=== PATIENT | female | born 2000 | race Caucasian/White ===

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

== ENCOUNTER 2019-05-25 20:29 | Emergency (ER) | payer BC, SELFPAY ==
[2019-05-25 20:30] VITALS: BP 163/82; PULSE 115; RESP 18; TEMP 36.8; O2SAT 94; BMI 52.7
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
--- NOTE | 2019-05-25 21:12 | RAD_ITS ---
STUDY: X-RAY CHEST REASON FOR EXAM: Female, 19 years old. PT STATES SINCE SHE VAPED SHE FEELS SOB TECHNIQUE: Frontal view COMPARISON: March 25, 2017 FINDINGS: The lungs are expanded. Mild focal right basilar interstitial prominence. Normal size heart. Normal mediastinum and angelique. Normal visualized pulmonary arteries. Normal visualized aortic arch and descending thoracic aorta. Normal visualized thoracic spine. Normal visualized ribs, clavicles, and shoulders. There is no demonstrated abnormality of the visualized soft tissue structures of the upper abdomen. RAD/Chest 1 View (Portable) IMPRESSION: Mild focal right basilar interstitial prominence. Electronically Signed: Morro Sinha DO at 22:06 EDT Tel [phone], Service support ,
[2019-05-25 21:20] VITALS: O2SAT 96
[2019-05-25] MEDS: Doxycycline 100 MG CAPSULE PO (23:10)
== END 2019-05-25 23:15 | disposition home or self-care (01) ==
PROVIDERS: Emergency Provider Emergency Medicine
DX: J40 Bronchitis, not specified as acute or chronic (principal); J02.9 Acute pharyngitis, unspecified
CPT/HCPCS: 71045; 99283

== ENCOUNTER 2019-08-18 16:07 | Emergency (ER) | payer BC, SELFPAY ==
[2019-08-18 16:08] VITALS: BP 142/73; PULSE 100; RESP 16; TEMP 36.2; BMI 56.0
--- NOTE | 2019-08-18 16:30 | ED.VIS.GEN ---
History of Present Illness Informant: Patient Onset: Weeks - 1 week Context: Gradual Onset Timing: Continuous Quality: burnining Location: urination Current Severity: Moderate Maximum Severity: Moderate Worsened by: nothing Relieved by: nothing Associated Symptoms: urinary frequency and urgency Narrative: 19-year-old female presents with dysuria with urinary frequency and urgency. Had a UTI last month and feels like she has another 1 today. She has no abdominal pain fevers vomiting or diarrhea her last normal menstrual period was about 2 weeks ago. She is not having any current vaginal bleeding or discharge. No back pain. Rest review of systems are negative Prior similar symptoms: Yes Recent Illness/Hospitalization: No <Paul Bartholomew - Last Filed: 08/18/19 17:35> <Rosemary Sullivan - Last Filed: 08/18/19 23:16> Chief Complaint: Complaint Past Medical History Prior records reviewed: Yes Past Medical History: None Surgical History: no surgical history Lives: With Family Smoking Status: Current every day smoker Alcohol: None Drugs: None <Paul Bartholomew - Last Filed: 08/18/19 17:35> <Rosemary Sullivan - Last Filed: 08/18/19 23:16> - Allergies and Home Meds Allergies/Adverse Reactions: Allergies prednisone Allergy (Verified 05/25/19 20:32) Unknown Primary Care Physician: David Covarrubias MD [STAFF PHYSICIAN] - Review of Systems All systems negative except as indicated General: Denies: Chills, Fever, Sweats Eyes: Denies: Visual changes - bilaterally, Diplopia ENT: Denies: Rhinorrhea, Sore throat Cardiovascular: Denies: Chest pain, Palpitations Respiratory: Denies: Dyspnea, Cough, Dyspnea on exertion Gastrointestinal: Denies: Abdominal pain, Nausea, Vomiting, Diarrhea, Melena, Hematochezia Genitourinary: Reports: Dysuria, Frequency. Denies: Hematuria Musculoskeletal: Denies: Back pain, Extremity Pain Skin: Denies: Rash, Wounds Neurological: Denies: Headache, Weakness, Numbness <Paul Bartholomew - Last Filed: 08/18/19 17:35> Physical Exam Vital Signs/Narrative: Vital Signs Temp Pulse Resp BP 08/18/19 16:08 97.2 F L 100 16 142/73 H Inital Vital Signs reviewed: Yes General: Well nourished, Well developed, No Acute Distress Head: Normocephalic, Atraumatic Eyes: Perrl, EOMI ENT: Moist mucous membranes, No rhinorrhea Neck: Supple, Nontender Cardiovascular: Regular rate, Regular rhythm, No murmurs Respiratory: No distress, CTA bilaterally, Chest nontender Abdomen: Soft, Nontender, Nondistended, Normal bowel sounds Back: Nontender, Normal Inspection. Negative for: CVA tenderness Extremities: Nontender, No edema Skin: Normal color, No rash Neurological: Alert, Oriented x3, Cranial nerves II-XII grossly intact, Normal Strength, Normal Sensation Psychological: Normal affect, Normal Mood <Paul Bartholomew - Last Filed: 08/18/19 17:35> Diagnostic/Tx/Re-eval Laboratory Tests 08/18/19 08/18/19 Range/Units 16:20 16:20 Urine Color Yellow (Yellow) Urine Clarity Clear (Clear) Urine pH 6.5 (5.0 - 8.0) Ur Specific [place] 1.010 (1.002-1.030) Urine Protein Negative (Negative) mg/dl Urine Glucose (UA) Normal (Normal) mg/dl Urine Ketones Negative (Negative) mg/dl Urine Occult Blood Negative (Negative) /ul Urine Nitrite Negative (Negative) Urine Bilirubin Negative (Negative) mg/dL Urine Urobilinogen Normal (Normal) mg/dl Ur Leukocyte Esterase Negative (Negative) /ul Urine RBC 0 SEEN (0-5) /hpf Urine WBC 0 SEEN (0-5) /hpf Ur Squamous Epith Cells 0-5 SEEN (5-10) /hpf Urine Bacteria 1+ (None Seen) /hpf Urine Mucus 0 SEEN (<or=2+) /hpf Urine Test Negative Negative - Medical Decision Making Patient's was negative as was her urinalysis. Patient will be placed on Pyridium. She was encouraged to follow-up with her PCP. She will continue oral hydration. Her abdomen is soft nontender nondistended vital signs are unremarkable and she is able to tolerate by mouth <Paul Bartholomew - Last Filed: 08/18/19 17:35> - Medical Decision Making I have personally performed a [id number] assessment of the patient and have reviewed the PA note. My angelo findings include: 19-year-old female presenting with dysuria. Feels similar to previous UTI. Denies vaginal discharge. Urinalysis and urine are negative. She is given prescription for Pyridium. Advised to follow up with her primary care physician. Advised return to ED if worsening complaints. <Rosemary Sullivan - Last Filed: 08/18/19 23:16> ED Disposition <Paul Bartholomew - Last Filed: 08/18/19 17:35> <Rosemary Sullivan - Last Filed: 08/18/19 23:16> - Plan for ED Patient: Disposition: Home or Assisted Living Diagnosis: Dysuria, Recent urinary tract infection Instructions: ED Dysuria Uncertain Cause Prescriptions: Phenazopyridine HCl [Pyridium] 200 mg PO TID #6 tab Prescription Printed Referrals: David Covarrubias MD [STAFF PHYSICIAN] -
[2019-08-18 16:33] LABS: Mucous, Urine 0 SEEN /hpf (<or=2+); Red Blood Cells-Urine 0 SEEN /hpf (0-5); White Blood Cells 0 SEEN /hpf (0-5)
[2019-08-18 16:49] LABS: Color, Urine Yellow (Yellow); Glucose, Dipstick Normal (Normal); Ketone-Dipstick Negative (Negative); Leukocyte Esterase-Dipstick Negative /ul (Negative); Nitrite-Dipstick Negative (Negative); Occult Blood-Urine Negative /ul (Negative); Protein-Dipstick Negative (Negative); Urine Bilirubin Dipstick Negative (Negative); Urine Clarity Clear (Clear); Urine Urobilinogen Normal (Normal); Urine pH 6.5 (5.0 - 8.0)
[2019-08-18 16:53] LABS: Internal QC Validated? YES +Cl - CLEAR BKGD; Pregnancy, Urine Negative Negative
[2019-08-18 17:02] LABS: Bacteria 1+ /hpf (None Seen); Squamous Epithelial Cells - UA 0-5 SEEN /hpf (5-10)
== END 2019-08-18 18:01 | disposition home or self-care (01) ==
PROVIDERS: Emergency Provider Physician Assistant Medical
DX: R30.0 Dysuria (principal); N39.0 Urinary tract infection, site not specified; F17.200 Nicotine dependence, unspecified, uncomplicated
CPT/HCPCS: 81001; 81025; 99282

== ENCOUNTER → 2019-08-28 | Outpatient (CLI) | payer BC, SELFPAY ==
[2019-08-28 13:14] VITALS: BMI 56.0
[2019-08-28 15:49] LABS: Bacteria 0 SEEN /hpf (None Seen); Mucous, Urine 0 SEEN /hpf (<or=2+); Red Blood Cells-Urine 0 SEEN /hpf (0-5); White Blood Cells 0 SEEN /hpf (0-5)
[2019-08-28 15:53] LABS: Glucose, Dipstick Normal (Normal); Ketone-Dipstick Negative (Negative); Leukocyte Esterase-Dipstick Negative /ul (Negative); Nitrite-Dipstick Negative (Negative); Occult Blood-Urine Negative /ul (Negative); Protein-Dipstick Negative (Negative); Urine Bilirubin Dipstick Negative (Negative); Urine Urobilinogen Normal (Normal)
[2019-08-28 16:01] LABS: Color, Urine Yellow (Yellow); Urine Clarity Clear (Clear)
[2019-08-28 16:22] LABS: Amorphous Sediment 1+ URATE; Squamous Epithelial Cells - UA 5-10 SEEN /hpf (5-10)
== END | disposition home or self-care (01) ==
PROVIDERS: Referring Provider Physician Assistant Surgical; Visit Provider Physician Assistant Surgical
DX: R35.0 Frequency of micturition (principal)
CPT/HCPCS: 81001; 87086; 87088

== ENCOUNTER 2020-03-10 10:48 | Emergency (ER) | payer BC, SELFPAY ==
[2019-08-28 13:14] VITALS: BMI 56.0
[2020-03-10 10:49] VITALS: BP 127/87; PULSE 104; RESP 20; TEMP 36.3; O2SAT 96; BMI 55.7
--- NOTE | 2020-03-10 11:04 | ED.DCSUM_ITS ---
History of Present Illness Informant: Patient Onset: Days - 3 days Context: Gradual Onset Timing: Continuous Quality: sore Location: throat Current Severity: Moderate Maximum Severity: Moderate Worsened by: Swallowing, Eating Solids Relieved by: Tylenol, NSAIDs Associated Symptoms: Nasal Congestion, Headache, Sinus Pressure, Nonproductive cough. Negative for: Myalgias, Nausea, Vomiting, Diarrhea, Shortness of Breath, Chest Pain, Hemoptysis, Productive Cough Narrative: 20-year-old female past medical history of bronchitis and daily smoking presents to the emergency department with 3 days of sore throat nonproductive cough nasal congestion sinus pain and pressure headache and malaise. No fever. No chest pain. No hemoptysis. No shortness of breath. No leg pain or swelling. No recent travel or surgery. No history of DVT or PE. No vomiting or diarrhea. N o loss of taste or smell. She denies being in contact of anyone who is been diagnosed with COVID-19. She has not had a positive test during the pandemic. Not taken anything at home [id number] Prior similar symptoms: Yes Recent Illness/Hospitalization: No <Paul Bartholomew - Last Filed: 03/10/20 11:04> <Cruzito Guzman - Last Filed: 03/10/20 13:14> Chief Complaint: Cough Past Medical History Prior records reviewed: Yes Past Medical History: - - Bronchitis allergies daily smoking Surgical History: no surgical history Lives: With Family Smoking Status: Current every day smoker Alcohol: None Drugs: None <Paul Bartholomew - Last Filed: 03/10/20 11:04> <Cruzito Guzman - Last Filed: 03/10/20 13:14> - Allergies and Home Meds Allergies/Adverse Reactions: Allergies prednisone Allergy (Verified 08/28/19 13:11) Unknown Primary Care Physician: David Covarrubias MD [STAFF PHYSICIAN] - As soon as possible Review of Systems All systems negative except as indicated General: Reports: Malaise. Denies: Chills, Fever, Sweats Eyes: Denies: Visual changes - bilaterally, Diplopia ENT: Reports: Rhinorrhea, Sore throat Cardiovascular: Denies: Chest pain, Palpitations, Heart racing Respiratory: Reports: Cough. Denies: Dyspnea, Sputum, Dyspnea on exertion, Orthopnea, Paroxysmal nocturnal dyspnea Gastrointestinal: Denies: Abdominal pain, Nausea, Vomiting, Diarrhea, Constipation, Melena, Hematochezia Genitourinary: Denies: Dysuria, Hematuria, Frequency Musculoskeletal: Denies: Myalgias, Arthralgias, Neck pain, Back pain, Extremity Pain Skin: Denies: Rash, Abscess, Abrasions, Wounds Neurological: Denies: Headache, Weakness, Parasthesia, Numbness Allergy: Denies: Uticaria, Swelling of the mouth, Swelling of the tongue <Paul Bartholomew - Last Filed: 03/10/20 11:04> Physical Exam Vital Signs/Narrative: Vital Signs Temp Pulse Resp BP Pulse Ox 03/10/20 10:49 97.3 F L 104 H 20 H 127/87 H 96 Inital Vital Signs reviewed: Yes General: Well nourished, Well developed Head: Normocephalic, Atraumatic. Negative for: Right Tenderness, Left Tenderness, Frontal Tenderness, Maxillary Tenderness, Sinus Tenderness Eyes: Perrl, EOMI Ears: Normal external canal, TM's clear. Negative for: Pain with Movement of Right Tragus, Pain with Movement of Left Tragus, Right Mastoid Tenderness, Left Mastoid Tenderness Nose: Normal Inspection, No Rhinorrhea Mouth/Throat: Normal Inspection, Airway Patent, Posterior Oropharyngeal Erythema. Negative for: Dry Mucous Membranes Tonsils: Right Tonsilar Erythema, Left Tonsilar Erythema. Negative for: Right Tonsilar Exudates, Left Tonsilar Exudates, Right Tonsilar Swelling, Left Tons ilar Swelling Neck: Supple, Nontender, No Lymphadenopathy, No Meningismus Cardiovascular: Regular rate, Regular rhythm, No murmurs Respiratory: No distress, CTA bilaterally, Chest nontender Abdomen: Soft, Nontender, Nondistended, Normal bowel sounds Back: Nontender, Normal Inspection Extremities: Nontender, No edema. Negative for: Tenderness, Edema, Calf Tenderness Skin: Normal color, No rash Neurological: Alert, Oriented x3, Cranial nerves II-XII grossly intact, Normal Strength, Normal Sensation Psychological: Normal affect <Paul Bartholomew - Last Filed: 03/10/20 11:04> Vital Signs/Narrative: Vital Signs Temp Pulse Resp BP Pulse Ox 03/10/20 10:49 97.3 F L 104 H 20 H 127/87 H 96 <Cruzito Guzman - Last Filed: 03/10/20 13:14> Diagnostic/Tx/Re-eval - Medical Decision Making Patient has normal stable vital signs. Patient well-appearing. Patient afebrile with a normal pulse ox. She refuses a COVID-19 test. I will prescribe her an albuterol inhaler and an antihistamine as she requested a prescription for an allergy medication. Discussed with her antibiotics were not indicated. I do not feel acute work-up is indicated in the emergency department. I discussed this with her and she is agreeable with this plan. I advised her to follow close with her primary care physician or she develops worsening symptoms which we discussed in detail she should return to the emergency department for repeat evaluation <Paul Bartholomew - Last Filed: 03/10/20 11:04> - Medical Decision Making Agree with above assessment and plan. Will discharge home in stable condition. She is to follow-up with her PCP. <Cruzito Guzman - Last Filed: 03/10/20 13:14> ED Disposition <Paul Bartholomew - Last Filed: 03/10/20 11:04> <Cruzito Guzman - Last Filed: 03/10/20 13:14> - Plan for ED Patient: Disposition: Home or Assisted Living Diagnosis: Viral URI with cough, Seasonal allergic rhinitis Instructions: ED Seasonal Allergy, ED URI, Viral, No Abx (Adult) Prescriptions: Cetirizine HCl 10 mg PO DAILY #30 tab Transmission Status: Received by [id number] Albuterol Inhaler [Ventolin Hfa] 1 - 2 puff INHALATION Q4H PRN PRN #1 inhaler PRN Reason: Wheezing Transmission Status: Received by [id number] Referrals: David Covarrubias MD [STAFF PHYSICIAN] - As soon as possible
[2020-03-10 11:23] VITALS: O2SAT 98
== END 2020-03-10 11:25 | disposition home or self-care (01) ==
LOC: ED 11:20
PROVIDERS: Emergency Provider Physician Assistant Medical
DX: J06.9 Acute upper respiratory infection, unspecified (principal); R05 Cough; J30.2 Other seasonal allergic rhinitis; F17.200 Nicotine dependence, unspecified, uncomplicated; Z88.8 Allergy status to other drugs, medicaments and biological substances
CPT/HCPCS: 99282

== ENCOUNTER → 2020-07-11 13:57 | Outpatient (CLI) | payer BC, SELFPAY ==
[2020-07-16 03:06] LABS: Chlamydia By Nucleic Acid AMP Negative (Negative)
[2020-07-16 10:58] LABS: Gonococcus By Nucleic Acid AMP Negative (Negative)
[2020-07-16 13:19] LABS: HPV Reflexed? NOT INDICATED
== END ==
PROVIDERS: Visit Provider Student in an Organized Health Care Education/Training Program
DX: Z12.4 Encounter for screening for malignant neoplasm of cervix (principal); Z11.3 Encounter for screening for infections with a predominantly sexual mode of transmission
CPT/HCPCS: 87491; 87591; 88175; G0145

== ENCOUNTER 2020-08-12 15:44 | Emergency (ER) | payer BC, SELFPAY ==
[2020-07-22 16:10] VITALS: BMI 55.7
[2020-08-12 15:45] VITALS: BP 150/90; PULSE 102; RESP 18; TEMP 36.7; O2SAT 99; BMI 59.6
--- NOTE | 2020-08-12 15:59 | ED.VIS.LOWEX ---
HPI History of Present Illness Chief Complaint: Lower Extremity Injury Narrative Narrative: 20-year-old female presenting with right ankle pain. She states she was wearing wedged flip-flops and tripped inverting her right ankle yesterday. She is ambulatory on scene and ambulatory today. She has antalgic gait. She denies paresthesias. She does have some bruising over her right lateral malleolus. Patient also states that sometimes her arm falls asleep when she holds it on her chest but then it promptly gets better when she puts her arm down. She denies any trauma. [facility] Medical History Diarrhea Fatigue Migraines Neck pain Physical exam, pre-employment Shoulder pain Home Medications naproxen [Naprosyn] 500 mg PO BID #20 tab 08/12/20 [Rx Last Taken Unknown] sulfamethoxazole-trimethoprim 1 tab PO DAILY 08/12/20 [History Last Taken Unknown] Allergy/AdvReac Type Severity Reaction Status Date / Time prednisone Allergy Unknown Verified 08/12/20 15:47 Family History Other Arthritis Cancer Diabetes Hypertension Surgical History History of cholecystectomy Social History Smoking Status: Never smoker alcohol intake: never ROS ROS ED Constitutional Constitutional ED: Denies chills, fever(s) or sweats Eyes Eyes: Denies blurry vision or change in vision ENT ENT ED: Denies ear pain, rhinorrhea or sore throat Cardiovascular Cardiovascular: Denies chest pain, palpitations or racing heartbeat Respiratory/Chest Respiratory/Chest: Denies cough, dyspnea or sputum Gastrointestinal Gastrointestinal: Denies abdominal pain, constipation, diarrhea or vomiting Genitourinary Genitourinary ED: Denies dysuria, hematuria or urinary frequency Musculoskeletal Musculoskeletal: Denies arthralgias, myalgias or neck pain Integumentary Denies abscess, Abrasions or rash Neurologic Neurologic: Denies headache(s), paresthesias or weakness Psychiatric Psychiatric: Denies anxiety, depression, suicidal ideation or suicidal thoughts Endocrine Endocrinology: Denies polydipsia or polyuria EXAM Physical Exam Const Vital Signs: 08/12/20 15:45 Temperature 98.1 F Temperature Source Temporal Pulse Rate 102 H Respiratory Rate 18 Blood Pressure 150/90 H Blood Pressure Mean 110 Pulse Ox 99 Oxygen Delivery Method Room Air General Appearance ED: Negative for pallor HEENT Reports normocephalic, head/scalp atraumatic and moist mucous membranes normocephalic Eyes PERRL and EOMs intact bilaterally Neck no lymphadenopathy Resp normal respiratory effort and clear to auscultation bilaterally Auscultation: Negative for rales, rhonchi or wheezes Cardio regular rate and regular rhythm GI normal to inspection, nondistended, normoactive bowel sounds Narrative: Deferred Extremity normal to inspection Extremity Narrative: Left ankle tender to palpation of the lateral malleolus. There is ecchymosis over this area. Right foot is neurovascular intact with brisk cap refill to all 5 toes. General Extremety ED: Yes edema and tenderness General Extremity: edema Neuro oriented x3 and CN's II-XII intact bilaterally Sensorium / Orientation: alert Motor Exam: strength 5/5 throughout Psych mental status grossly normal Attitude: No agitated Skin no rashes or lesions noted and no wounds General Skin Exam: Negative for jaundice or pallor MDM MDM MDM Narrative Medical decision making narrative: Patient presenting with right ankle pain after an inversion injury yesterday. She is ambulatory on this ankle. She has some bruising over the lateral malleolus. Her right foot is neurovascularly intact. She has no pain at the proximal fibula. She is given Naprosyn for pain in the ED. 3 views of the right ankle show no acute fracture or subluxation on my interpretation. The radiologist does agree. Patient will be given Young wrap and Aircast. Patient states that she does not require crutches. She will follow up with her primary care provider to ensure resolution. Impression: 1. Right ankle sprain Radiography Diagnostic Testing: Radiology Impression Ankle X-Ray 08/12/20 16:09 IMPRESSION: Mild soft tissue swelling Electronically Signed: Piero Magana MD at 16:50 EDT , Service support , Discharge Plan Triage Chief Complaint: Lower Extremity Injury ED Provider: Ish Eddy Dx/Rx/DC Orders Instructions: ED Sprain Ankle W X Ray Prescriptions: New naproxen [Naprosyn] 500 mg tablet 500 mg PO BID Qty: 20 RF: 0 No Action sulfamethoxazole-trimethoprim 800-160 mg tablet 1 tab PO DAILY RF: 0 Primary Care Provider: Care Physician,No Primary Referrals: Care Physician,No Primary [Primary Care Provider] - Disposition Disposition: Home, self care
[2020-08-12] MEDS: Naproxen 500 MG Tablet PO (16:03)
--- NOTE | 2020-08-12 16:09 | RAD_ITS ---
STUDY: X-RAY - RIGHT ANKLE REASON FOR EXAM: Female, 20 years old. TRIPPED YESTERDAY. PAIN ON BOTH SIDES OF ANKLE AT JOINT ankle pain TECHNIQUE: 3 view(s) of the ankle. COMPARISON: None. FINDINGS: Normal visualized distal tibia and fibula. Normal medial and lateral malleoli. Normal tibiotalar articulation and ankle mortise. Normal visualized talus and calcaneus. The visualized subtalar, talonavicular, calcaneocuboid and tarsal articulations are normal. There is no demonstrated fracture. Mild soft tissue swelling around the ankle noted. RAD/Ankle min 3 Views IMPRESSION: Mild soft tissue swelling Electronically Signed: Piero Magana MD at 16:50 EDT , Service support ,
== END 2020-08-12 17:02 | disposition home or self-care (01) ==
LOC: ED 16:32
PROVIDERS: Emergency Provider Student in an Organized Health Care Education/Training Program
DX: S93.401A Sprain of unspecified ligament of right ankle, initial encounter (principal); W18.40XA Slipping, tripping and stumbling without falling, unspecified, initial encounter; Y93.9 Activity, unspecified; Y92.89 Other specified places as the place of occurrence of the external cause; Y99.8 Other external cause status; Z79.1 Long term (current) use of non-steroidal anti-inflammatories (NSAID)
CPT/HCPCS: 73610; 99283

== ENCOUNTER 2022-01-06 16:23 | Emergency (ER) | payer BC, SELFPAY ==
[2022-01-06 16:24] VITALS: BP 147/103; PULSE 98; RESP 16; TEMP 36.5; O2SAT 98; BMI 62.1
--- NOTE | 2022-01-06 17:00 | EDS_ITS ---
HPI History of Present Illness Chief Complaint: Cold Sx Narrative Narrative: 21-year-old female here with concern for COVID-19. States her mother was recent diagnosed with COVID states he has Thaxton exertion, cough body aches. Symptoms are constant, severe without alleviating exacerbating features. The patient denies recent surgery in the last 4 weeks or immobilization in the last 3 days, denies previous diagnosis of DVT or PE, hemoptysis, unilateral leg swelling or malignancy with treatment the last 6 months. No estrogen use noted. No chest pain or bleeding diathesis Dorst me. No vomiting, no increased urination, no diarrhea. [facility] Medical History Diarrhea Fatigue Migraines Neck pain Physical exam, pre-employment Shoulder pain Home Medications NK 01/06/22 [History Last Taken Unknown] Allergy/AdvReac Type Severity Reaction Status Date / Time prednisone Allergy Unknown Verified 01/06/22 16:56 Family History Other Arthritis Cancer Diabetes Hypertension Surgical History History of cholecystectomy Social History Smoking Status: Never smoker alcohol intake: never ROS ROS ED ROS Narrative Constitutional: Denies fever HEENT: Denies sore throat Neck: Denies neck pain Cardiovascular: Denies chest pain, syncope Respiratory: Endorses cough, shortness of breath, dyspnea on exertion GI: Denies nausea vomiting or abdominal pain : Denies changes in urinary habits Musculoskeletal: Denies joint pain, endorses muscle aches Neurologic: Denies numbness weakness or loss of sensation Skin denies rash EXAM Physical Exam Narrative Exam Narrative: Nursing triage notes reviewed, Vital signs reviewed Constitutional: please see mdm HENT: MMM Eyes: Pupils equal round and reactive to light, Extraocular muscles intact Neck: No stridor, no JVD, full neck ROM Lungs: Clear to auscultation, No wheezing or rales. No increased work of breathing, no conversational dyspnea, no accessory muscle use, no nasal flaring. No respiratory distress noted Heart: Regular rate and rhythm, No murmurs, No rubs and No gallops, 2+ distal pulses (radial, femoral, posterior tibial) in all extremities Abdomen: Soft, there is no tenderness, rigidity, rebound or guarding, no obvious peritoneal signs, no palpable pulsatile abdominal masses, no auscultated abdominal bruit : No CVAT Extremities: No edema Neuro: No focal neurological deficits, cranial nerves II through XII intact, 5/5 strength in all extremities. Intact sensation to light touch in all extremities, 2+ reflexes bilateral patella dens. Normal gait. No ataxia. Skin: No rash or lesions noted Const Vital Signs: 01/06/22 16:24 01/06/22 16:56 01/06/22 18:36 Temperature 97.7 F L Temperature Source Temporal Pulse Rate 98 Respiratory Rate 16 18 Respiratory Effort Normal Non-Labored Respiratory Pattern Normal Blood Pressure 147/103 H Blood Pressure Mean 117 Pulse Ox 98 Oxygen Delivery Method Room Air 01/06/22 18:36 Temperature Temperature Source Pulse Rate Respiratory Rate 16 Respiratory Effort Respiratory Pattern Blood Pressure Blood Pressure Mean Pulse Ox Oxygen Delivery Method Room Air MDM MDM MDM Narrative Medical decision making narrative: 21-year-old female here with URI-like symptoms in the setting of recent COVID exposure. Patient was not hypoxic she had no increased work of breathing. No chest pain endorsed, low suspicion for ACS at this time. Patient had a low risk Wells score and no PE risk factors. Low suspicion for pulmonary embolism at this time. Obtained a chest x-ray to rule out bacterial pneumonia given cough and shortness of breath. Obtained COVID, flu testing. Ambulated the patient to assure no exertional hypoxia. Patient ambulated well without exertional hypoxia. X-ray was unremarkable for pneumonia. COVID testing pending at this time. Radiography Diagnostic Testing: Clinical Impression(s) from Imaging Studies Chest X-Ray 01/06/22 17:55 IMPRESSION: Normal x-ray examination of the chest. Electronically Signed: Stuart Pimentel MD at 18:23 EDT , Treatment and Re-Evaluation Narrative: The patient was able to ambulate without having hypoxia. She will be discharged pending COVID and flu testing. She is encouraged to take Tylenol, ibuprofen every 6 hours drink plenty of fluids as she likely has a viral URI. Could be COVID, could be flu either way the treatment is the same. Gave strict return precautions and follow-up instructions Discharge Plan Triage Chief Complaint: Cold Sx ED Provider: Matt Nair Dx/Rx/DC Orders Clinical Impression: Upper respiratory infection, viral, Encounter for laboratory testing for COVID- 19 virus Instructions: ED URI, Viral, No Abx (Adult) Prescriptions: No Action NK Primary Care Provider: Care Physician,No Primary Referrals: Alhaji Mariscal MD [STAFF PHYSICIAN] - Care Physician,No Primary [Primary Care Provider] - Activity Restrictions/Additional Instructions: Please return if you develop worsening shortness of breath, weakness, chest pain or if you lose consciousness. Disposition Disposition: Home, Self Care Discharge Date/Time: 01/06/22 18:40
[2022-01-06 17:43] VITALS: O2SAT 96
[2022-01-06] MEDS: Ibuprofen 200 MG Tablet PO (17:51)
[2022-01-06] MEDS: Acetaminophen 500 MG Tablet PO (17:51)
--- NOTE | 2022-01-06 17:55 | RAD_ITS ---
STUDY: X-RAY CHEST REASON FOR EXAM: Female, 21 years old. Cough, SOB, r/o PNA TECHNIQUE: PA and lateral views of the chest. COMPARISON: May 25, 2019 FINDINGS: The lungs are clear and expanded. There is no demonstrated pleural abnormality. Normal size heart. Normal mediastinum and angelique. Normal visualized pulmonary arteries. Normal visualized aortic arch and descending thoracic aorta. Normal visualized thoracic spine. Normal visualized ribs, clavicles, and shoulders. There is no demonstrated abnormality of the visualized soft tissue structures of the upper abdomen. RAD/Chest PA and Lateral IMPRESSION: Normal x-ray examination of the chest. Electronically Signed: Stuart Pimentel MD at 18:23 EDT ,
[2022-01-06 18:36] VITALS: RESP 16; RESP 18
== END 2022-01-06 18:40 | disposition home or self-care (01) ==
PROVIDERS: Emergency Provider Emergency Medicine; Visit Provider Emergency Medicine
DX: J06.9 Acute upper respiratory infection, unspecified (principal); Z20.822 Contact with and (suspected) exposure to COVID-19; J18.9 Pneumonia, unspecified organism
CPT/HCPCS: 71046; 87428; 99283

== ENCOUNTER 2022-10-24 21:08 | Emergency (ER) | payer SELFPAY ==
[2022-10-24 21:10] VITALS: BP 158/92; PULSE 103; RESP 18; TEMP 36.1; O2SAT 98; BMI 60.5
--- NOTE | 2022-10-24 21:27 | ED.VIS.FEGU ---
HPI <TITI Jiang - Last Filed: 10/25/22 10:09> HPI - Female History of Present Illness Chief Complaint: Female C/O Narrative Narrative: Patient presenting today due to concerns that she is having a miscarriage. She reports that yesterday she began having pelvic cramping and vaginal bleeding. She has gone through 4 pads and 4 tampons over the past two days. She reports that she normally does pass clots while on her menstrual period but today she passed a clot that looked like tissue. Because of this, she is concerned that maybe she is having a miscarriage. She has not had a menstrual period in 2 months but does report a history of irregular menstrual periods. She has never been before. She reports that usually her cramps are not this severe. She reports some increase in urination with a history of UTIs without dysuria. She denies fever, chills, abdominal pain, nausea, and vomiting. PFSH <TITI Jiang - Last Filed: 10/25/22 10:09> PFSH Medical History Diarrhea Fatigue Migraines Neck pain Physical exam, pre-employment Shoulder pain Home Medications NK 01/06/22 [History Last Taken Unknown] Allergy/AdvReac Type Severity Reaction Status Date / Time prednisone Allergy Unknown Verified 10/24/22 21:10 Family History Other Arthritis Cancer Diabetes Hypertension Surgical History History of cholecystectomy Social History Smoking Status: Never smoker alcohol intake: never ROS <TITI Jiang - Last Filed: 10/25/22 10:09> ROS ED Constitutional Constitutional ED: Denies chills or fever(s) Cardiovascular Cardiovascular: Denies chest pain Respiratory/Chest Respiratory/Chest: Denies cough or dyspnea Gastrointestinal Gastrointestinal: Denies abdominal pain, nausea or vomiting Genitourinary Genitourinary ED: Reports urinary frequency; Denies dysuria Musculoskeletal Musculoskeletal: Denies arthralgias or myalgias Neurologic Neurologic: Denies weakness EXAM <TITI Jiang - Last Filed: 10/25/22 10:09> Physical Exam Const Vital Signs: 10/24/22 21:10 Temperature 97 F L Temperature Source Temporal Pulse Rate 103 H Respiratory Rate 18 Blood Pressure 158/92 H Blood Pressure Mean 114 Pulse Ox 98 Oxygen Delivery Method Room Air Positive well nourished, well developed and no apparent distress General Appearance ED: well developed HEENT Reports normocephalic and head/scalp atraumatic Mouth ED: Yes moist mucous membranes normal Eyes PERRL and EOMs intact bilaterally Neck full ROM and supple Chest Wall inspection of chest normal Resp normal respiratory effort and clear to auscultation bilaterally Cardio regular rate and regular rhythm GI soft to palpation, non-tender, non-distended and no masses Back/Spine normal ROM and normal to inspection Extremity normal to inspection and full ROM Neuro oriented x3, CN's II-XII intact bilaterally, moves all extremities, no focal motor deficits and no sensory deficits noted Sensorium / Orientation: awake and alert Psych mental status grossly normal and thought process normal Skin no rashes or lesions noted and no wounds <Dr. Garrick Hinton, - Last Filed: 10/24/22 23:52> Physical Exam Const Vital Signs: 10/24/22 21:10 Temperature 97 F L Temperature Source Temporal Pulse Rate 103 H Respiratory Rate 18 Blood Pressure 158/92 H Blood Pressure Mean 114 Pulse Ox 98 Oxygen Delivery Method Room Air MDM <TITI Jiang - Last Filed: 10/25/22 10:09> [facility] MDM Narrative Medical decision making narrative: Patient presenting due to concerns that she is having a miscarriage. She reports that she has not had a menstrual period in 2 months but does have a history of irregular menstrual periods. She has never been before. Today she passed a clot vaginally that looked like it had tissue in it and became concerned for miscarriage. She reports that she does normally pass clots when she is on her. But none have ever looked like this. She has not taken a test to date. She also reports increased urinary frequency with a history of UTI without any dysuria, UA will be obtained to rule out and UTI. She is well-appearing and in no acute distress. She is not complaining of any abdominal pain, nausea, or vomiting. She is afebrile. UA negative for UTI and . She is to follow-up with her PCP and will be discharged home in stable condition. She is comfortable with plan for Lab Data Attestation: I reviewed the patient's lab results. Labs: Laboratory Results - last 24 hr 10/24/22 21:40 Urine Color Yellow Urine Clarity Clear Urine pH 5.0 Ur Specific Porter 1.030 Urine Protein 30 H Urine Glucose (UA) Normal Urine Ketones 15 H Urine Occult Blood 250 H Urine Nitrite Negative Urine Bilirubin Negative Urine Urobilinogen 1 H Ur Leukocyte Esterase 25 H Urine RBC 25-50 SEEN Urine WBC 0-5 SEEN Ur Squamous Epith Cells 0 SEEN Urine Bacteria 0 SEEN Urine Mucus 0 SEEN Urine Test Negative <Dr. Garrick Hinton, DO - Last Filed: 10/24/22 23:52> [facility] Lab Data Labs: Laboratory Results - last 24 hr 10/24/22 21:40 Urine Color Yellow Urine Clarity Clear Urine pH 5.0 Ur Specific Porter 1.030 Urine Protein 30 H Urine Glucose (UA) Normal Urine Ketones 15 H Urine Occult Blood 250 H Urine Nitrite Negative Urine Bilirubin Negative Urine Urobilinogen 1 H Ur Leukocyte Esterase 25 H Urine RBC 25-50 SEEN Urine WBC 0-5 SEEN Ur Squamous Epith Cells 0 SEEN Urine Bacteria 0 SEEN Urine Mucus 0 SEEN Urine Test Negative Treatment and Re-Evaluation Narrative: I have personally performed a face to face assessment of the patient and have reviewed the NIDA Note. I performed a substantive portion of the visit including all aspects of the following. My angelo findings include: History: Patient presents with vaginal bleeding for the past 2 days. Patient states she has been having some cramping. Patient states that tonight she passed a large clot. Patient thinks there may have been some tissue in that clot. Patient states her last menstrual period was approximately 2 months ago. Patient states he has a history of irregular menstrual periods. Patient states her pain does go into her back at times. Patient also admits to some urinary frequency. Patient denies any dysuria or hematuria. Exam: Vital signs are stable. Patient is afebrile. Patient is in no acute distress. Oral mucosa is pink and moist. Neck is supple. Trachea is midline. There is no JVD. Heart was regular rate and rhythm. Lungs are clear and equal bilaterally. Abdomen is soft. Bowel sounds are normal. There is some mild suprapubic tenderness. There is no rebound or guarding noted. Cranial nerves II through XII are intact. There are no focal motor or sensory deficits noted. Medical Decision Making: Differential diagnosis includes ectopic , threatened miscarriage, dysmenorrhea, and urinary tract infection. Urinalysis will be obtained to assess for urinary tract infection. Urine hCG will be obtained to assess for . Urinalysis was reviewed. There is no evidence of urinary tract infection. Occult blood was 250. There were 25-50 red blood cells noted. Urine hCG was reviewed and was negative. Patient was advised of her findings. Patient was instructed to follow-up with her primary care physician in 5 to 7 days. Patient understood and was agreeable with the plan. All questions were answered. Discharge Plan Triage Chief Complaint: Female C/O ED Midlevel Provider: Terri Mathew ED Provider: Garrick Hinton Dx/Rx/DC Orders Clinical Impression: Heavy menstrual period, Menstrual cramps Instructions: ED MENSTRUAL CRAMPING, ED Heavy Menstrual Bleeding Prescriptions: No Action NK Primary Care Provider: Care Physician,No Primary Referrals: Care Physician,No Primary [Primary Care Provider] - Activity Restrictions/Additional Instructions: Please follow-up with your PCP and return for any worsening of your symptoms. You can alternate Tylenol and ibuprofen for your pain. Disposition Disposition: Home, Self Care Discharge Date/Time: 10/24/22 22:20
[2022-10-24 21:44] LABS: Bacteria 0 SEEN /hpf (None Seen); Color, Urine Yellow (Yellow); Glucose, Dipstick Normal (Normal); Ketone-Dipstick 15 mg/dl (Negative); Leukocyte Esterase-Dipstick 25 /ul (Negative); Mucous, Urine 0 SEEN /hpf (<or=2+); Nitrite-Dipstick Negative (Negative); Occult Blood-Urine 250 /ul (Negative); Protein-Dipstick 30 mg/dl (Negative); Squamous Epithelial Cells - UA 0 SEEN /hpf (5-10); Urine Bilirubin Dipstick Negative (Negative); Urine Clarity Clear (Clear); Urine Urobilinogen 1 mg/dl (Normal)
[2022-10-24 21:55] LABS: Internal QC Validated? YES +Cl - CLEAR BKGD; Pregnancy, Urine Negative Negative; Red Blood Cells-Urine 25-50 SEEN /hpf (0-5); White Blood Cells 0-5 SEEN /hpf (0-5)
[2022-10-24] MEDS: Ibuprofen 600 MG Tablet PO (22:18)
== END 2022-10-24 22:20 | disposition home or self-care (01) ==
PROVIDERS: Physician Assistant; Emergency Provider Emergency Medicine; Visit Provider Emergency Medicine
DX: N92.0 Excessive and frequent menstruation with regular cycle (principal); N94.6 Dysmenorrhea, unspecified; Z90.49 Acquired absence of other specified parts of digestive tract
CPT/HCPCS: 81001; 81025; 99283

== ENCOUNTER 2023-11-20 04:49 | Emergency (ER) | payer SELFPAY ==
[2023-11-20 04:50] VITALS: BP 138/80; PULSE 96; RESP 16; TEMP 36.6; O2SAT 98; BMI 60.0
--- NOTE | 2023-11-20 04:58 | RAD_ITS ---
HISTORY: injury. TECHNIQUE: XR Foot Min 3 Views. COMPARISON: None. FINDINGS: BONES : No acute fracture identified. Tiny plantar calcaneal spur present. JOINTS: No dislocation. Joint spaces maintained. SOFT TISSUES: Mild soft tissue swelling. RAD/Foot min 3 Views IMPRESSION: No acute fracture or dislocation identified in the left foot. Electronically Signed: Dianne Cardona MD at 8:04 EDT ,
--- NOTE | 2023-11-20 04:58 | ED.VIS.LOWEX ---
HPI History of Present Illness Chief Complaint: Lower Extremity Injury Detail of Chief Complaint: Injury to right ankle and left foot Informant: patient Narrative Narrative: Patient presents to the emergency department after she slipped and fell last evening while letting the dog out and injuring her right ankle and left foot. Patient had a hard time sleeping last night. Presents for evaluation. Denies any other injuries. [facility] Medical History Diarrhea Fatigue Migraines Neck pain Physical exam, pre-employment Shoulder pain Home Medications ?Medication ?Instructions ?Recorded ?Last Taken ?Type NK 01/06/22 Unknown History Allergy/AdvReac Type Severity Reaction Status Date / Time prednisone Allergy Unknown Verified 11/20/23 04:50 Family History Other Arthritis Cancer Diabetes Hypertension Surgical History History of cholecystectomy Social History Smoking Status: Current some day smoker tobacco type: cigarettes and smokeless tobacco alcohol intake: never ROS ROS ED Review of Systems ROS Unobtainable: other Constitutional Constitutional ED: Reports lethargy; Denies chills, fever(s), sweats or weight loss Eyes Eyes: Denies blurry vision, change in vision or diplopia ENT ENT ED: Denies rhinorrhea or sore throat Cardiovascular Cardiovascular: Denies chest pain, orthopnea or racing heartbeat Respiratory/Chest Respiratory/Chest: Denies cough, dyspnea, dyspnea on exertion, orthopnea or sputum Gastrointestinal Gastrointestinal: Denies abdominal pain, diarrhea, nausea or vomiting Genitourinary Genitourinary ED: Denies dysuria, hematuria or urinary frequency Musculoskeletal Musculoskeletal: Reports other Details: Injury to right ankle and left foot ; Denies arthralgias, back pain, myalgias or neck pain Integumentary Denies abscess, Abrasions or rash Neurologic Neurologic: Denies headache(s) or weakness Psychiatric Psychiatric: Denies anxiety, depression or suicidal thoughts Endocrine Endocrinology: Denies polydipsia, polyphagia or polyuria Hematologic/Lymphatic Hematologic/Lymphatic: Denies easy bleeding, easy bruising or lymphadenopathy Allergic/Immunologic Allergic/Immunologic ED: Denies mouth swelling, tongue swelling or urticaria EXAM Physical Exam Const Vital Signs: 11/20/23 04:50 Temperature 97.8 F Temperature Source Temporal Pulse Rate 96 Respiratory Rate 16 Blood Pressure 138/80 H Blood Pressure Mean 99 Pulse Ox 98 Positive well nourished and well developed General Appearance ED: well developed and NAD HEENT Reports TM's clear and moist mucous membranes normocephalic and atraumatic; Negative for trauma or tenderness Tympanic Membrane ED: Yes TM's clear Eyes PERRL and EOMs intact bilaterally General Eye ED: Negative for pale conjunctiva or scleral icterus Neck no lymphadenopathy, supple and no JVD General: Negative for tenderness Chest Wall inspection of chest normal and palpation of chest normal Chest: Negative for tenderness Resp normal respiratory effort and clear to auscultation bilaterally Effort and Inspection: Negative for respiratory distress or pain with movement Auscultation: Negative for rhonchi, wheezes or diminished lung sounds Cardio regular rate, regular rhythm, S1 normal heart sound, S2 normal heart sound and no murmurs Peripheral Pulses: pulses 2+ throughout GI normal to inspection, nondistended, normoactive bowel sounds, soft to palpation, non-tender, non-distended and no masses Back/Spine no CVA tenderness and no thoracic nor lumbar tenderness Extremity Extremity Narrative: Right ankle-patient has diffuse soft tissue swelling with tenderness palpation over the lateral malleolus and anterior aspect of the ankle. No pain at the base of the fifth metatarsal. No pain at the proximal fibular head. Neurovascular intact distally. Left foot-patient has tenderness palpation over the proximal foot dorsum. No tenderness over the base of the fifth metatarsal. No tenderness about the medial or lateral malleolus. Neurovascularly intact. General Extremety ED: Negative for edema General Extremity: Negative for edema Neuro oriented x3, CN's II-XII intact bilaterally, no sensory deficits noted and gait normal Sensorium / Orientation: awake, alert, oriented to person, oriented to place and oriented to time Motor Exam: strength 5/5 throughout and strength abnormal Psych mental status grossly normal Skin no rashes or lesions noted and no wounds MDM MDM MDM Narrative Medical decision making narrative: Patient presents to the emergency department with injury to the right ankle and left foot after slipping on a wet deck. X-rays of the right ankle and left foot obtained were negative for fracture. Patient will be given an air splint for her right ankle and an Young wrap for her left foot. Advised to follow-up with primary care physician in 5 to 7 days. Patient to use ibuprofen or Tylenol for discomfort. Radiography Diagnostic Testing: Three-view x-ray of the right ankle obtained interpreted by myself as no evidence of fracture or dislocation. Three-view x-rays of left foot obtained interpreted by myself no evidence of fracture or dislocation. Discharge Plan Triage Chief Complaint: Lower Extremity Injury ED Provider: Larry Zarco Dx/Rx/DC Orders Clinical Impression: Right ankle sprain, Sprain of left foot Instructions: ED Foot Sprain, ED Ankle Sprain (Adult) Prescriptions: No Action NK Primary Care Provider: Care Physician,No Primary Referrals: Sandie Beckford MD [Med Staff - Educational Technology Coordinator] - 5-7 Days Care Physician,No Primary [Primary Care Provider] - Print Language: Greenlandic Disposition Disposition: Home, Self Care
--- NOTE | 2023-11-20 05:10 | RAD_ITS ---
HISTORY: injury. TECHNIQUE: XR Ankle Min 3 Views. COMPARISON: 08/12/2020. FINDINGS: BONES : Small fragment at the medial malleolus. Mineralization unremarkable. JOINTS: Asymmetric widening of the ankle mortise laterally. Joint effusion. SOFT TISSUES: Moderate soft tissue swelling. RAD/Ankle min 3 Views IMPRESSION: Mild subluxation of the right ankle with a small fracture fragment at the medial malleolus. Electronically Signed: Dianne Cardona MD at 8:06 EDT ,
[2023-11-20] MEDS: Ibuprofen 400 MG Tablet 800 MG PO (06:11)
== END 2023-11-20 06:14 | disposition home or self-care (01) ==
PROVIDERS: Emergency Provider Emergency Medicine; Visit Provider Emergency Medicine
DX: S93.401A Sprain of unspecified ligament of right ankle, initial encounter (principal); S93.602A Unspecified sprain of left foot, initial encounter; W01.10XA Fall on same level from slipping, tripping and stumbling with subsequent striking against unspecified object, initial encounter; Y93.K9 Activity, other involving animal care; Z90.49 Acquired absence of other specified parts of digestive tract; F17.210 Nicotine dependence, cigarettes, uncomplicated; F17.220 Nicotine dependence, chewing tobacco, uncomplicated
CPT/HCPCS: 73610; 73630; 99283

== ENCOUNTER 2024-01-15 15:15 | Emergency (ER) | payer SELFPAY ==
[2024-01-15 15:16] VITALS: BP 190/91; PULSE 92; RESP 16; TEMP 36.5; O2SAT 99; BMI 57.9
--- NOTE | 2024-01-15 16:49 | EX.ED.GENINJ ---
HPI History of Present Illness Chief Complaint: Laceration Informant: patient Narrative Narrative: Patient is a 23-year-old female presenting for injuries after mechanical fall. She tripped on gravel. She landed hard on her right knee sustaining a laceration through her pants. She also scraped her left fourth finger. Bleeding is controlled of the finger. She complained of pain at her knee at the site of the laceration. She states she did hit her face but denies any loss of consciousness. She is on any blood thinners denies any issues with bleeding. Denies any difficulty opening or closing her jaw. Denies any associate numbness or tingling. No other complaints or concerns reported at this time Tetanus Immunization: Unknown [facility] Medical History Physical exam, pre-employment Neck pain Diarrhea Migraines Fatigue Shoulder pain Home Medications ?Medication ?Instructions ?Recorded ?Last Taken ?Type NK 01/06/22 Unknown History Allergy/AdvReac Type Severity Reaction Status Date / Time prednisone Allergy Unknown Verified 01/15/24 15:16 Family History Other Arthritis Cancer Diabetes Hypertension Surgical History History of cholecystectomy Social History Smoking Status: Light Smoker (<10/day) alcohol intake: never ROS ROS ED Constitutional Constitutional ED: Denies chills or fever(s) Eyes Eyes: Denies change in vision ENT ENT ED: Reports other Details: Denies dental pain ; Denies ear pain or sore throat Cardiovascular Cardiovascular: Denies chest pain Respiratory/Chest Respiratory/Chest: Denies cough or dyspnea Gastrointestinal Gastrointestinal: Denies abdominal pain or vomiting Musculoskeletal Musculoskeletal: Reports other Details: Right knee pain, left ring finger pain Integumentary Reports Abrasions and other Details: Laceration to the right knee Neurologic Neurologic: Denies headache(s), paresthesias or weakness Psychiatric Psychiatric: Reports anxiety Hematologic/Lymphatic Hematologic/Lymphatic: Denies easy bleeding or easy bruising EXAM Physical Exam Const Vital Signs: 01/15/24 15:16 Temperature 97.7 F L Temperature Source Oral Pulse Rate 92 Respiratory Rate 16 Blood Pressure 190/91 H Blood Pressure Mean 124 Pulse Ox 99 Oxygen Delivery Method Room Air Positive well nourished and well developed General Appearance ED: well developed and NAD HEENT Reports TM's clear HEENT Narrative: No cephalohematoma appreciated atraumatic Nose: Negative for septum abnormal Tympanic Membrane ED: Yes TM's clear Eyes PERRL and EOMs intact bilaterally Neck full ROM General: Negative for tenderness Chest Wall inspection of chest normal and palpation of chest normal Resp normal respiratory effort and clear to auscultation bilaterally Cardio regular rhythm Cardio Narrative: 2+ radial DP pulses Rate: regular rate Extremity normal to inspection and full ROM Extremity Narrative: Normal extensor mechanism of the right lower extremity. Normal range of motion of the right knee. No joint effusion appreciated. No gross bony tenderness or deformity appreciated. Normal range of motion of the left fingers and hand. Normal flexion extension specifically of the left ring finger. General Extremety ED: Negative for deformity or edema General Extremity: Negative for deformity or edema Neuro oriented x3, moves all extremities, no focal motor deficits and no sensory deficits noted Mckay Coma Scale: document GCS findings Spontaneous Obeys Commands Oriented 15 Sensorium / Orientation: alert Psych mental status grossly normal Mood & Affect: anxious Skin Skin Narrative: 3 mm superficial abrasion with no active bleeding of the palmar aspect of the left fourth finger over the PIP. There is a 3 cm full-thickness linear laceration just inferior to the right knee with some mild bleeding. No gaping at this time but the wound is easily separate with traction. PROC Procedures Lacerations right knee : Length: 1.18 in Depth: Sub Q Shape: Linear Prep: Chlorhexadine Laceration repair: Debrideded, Lidocaine with epi, Skin sutures and Subcutaneous sutures (1 x 4-0 vicryl) Irrigated (ml): 250 Number of Sutures/[place]: 3 Suture Information: Ethilon, Horizontal, Mattress and 4-0 MDM MDM MDM Narrative Medical decision making narrative: Patient is evaluated for injuries after a fall. Has a superficial abrasion to the left ring finger but has a full-thickness laceration that require laceration repair to the right knee. See procedure note. Tetanus will be updated. Patient given dose of Motrin. Blood pressure elevated upon arrival and will recheck once patient is been resting for some time. Low suspicion for foreign body based on physical exam and do not think x-rays are indicated. No concern for bony abnormalities. Do not think a laceration goes into the knee joint space. Patient has a localized wound care. Directed alternate ibuprofen and Tylenol for pain. Given return precautions. Discharged home in stable condition. Discharge Plan Triage Chief Complaint: Laceration ED Provider: Monique Ferro Dx/Rx/DC Orders Clinical Impression: Fall, Laceration of knee, right, Abrasion of left ring finger Instructions: ED Abrasion, ED Laceration Extremity Prescriptions: No Action NK Primary Care Provider: Care Physician,No Primary Referrals: Marianna Hwang MD [Med Staff - Synthetic Staple Extruder] - 10-14 Days suture removal Care Physician,No Primary [Primary Care Provider] - Activity Restrictions/Additional Instructions: Alternate ibuprofen and Tylenol for pain. Ice the area to help with swelling. Take it easy for the rest of the weekend. He may return to work on Wednesday. Keep wounds covered at work. You may apply momb-[id number] bacitracin ointment or Vaseline ointment over the wounds. Sutures should be removed in 10 to 14 days. Print Language: Maori Disposition Disposition: Home, Self Care
[2024-01-15] MEDS: Lidocaine 1% /Epi 1:100 (20ml) 20 ML Vial INFILT (17:02)
[2024-01-15] MEDS: Diphth,Pertuss(Acell),Tet Vac 0.5 ML Vial IM (17:03)
[2024-01-15] MEDS: Ibuprofen 600 MG Tablet PO (17:03)
[2024-01-15 18:47] VITALS: BP 141/91; PULSE 87; RESP 18; O2SAT 100
== END 2024-01-15 18:48 | disposition home or self-care (01) ==
PROVIDERS: Emergency Provider Emergency Medicine; Visit Provider Emergency Medicine
DX: S81.011A Laceration without foreign body, right knee, initial encounter (principal); W01.0XXA Fall on same level from slipping, tripping and stumbling without subsequent striking against object, initial encounter; S60.415A Abrasion of left ring finger, initial encounter; Z90.49 Acquired absence of other specified parts of digestive tract; Z23 Encounter for immunization
CPT/HCPCS: 12002; 90715; 99283

== ENCOUNTER 2024-05-16 13:21 | Emergency (ER) | payer MEDICAID, SELFPAY ==
[2024-05-16 13:22] VITALS: BP 178/100; PULSE 95; RESP 20; TEMP 36.8; O2SAT 100; BMI 53.4
[2024-05-16 13:23] VITALS: BP 178/100; PULSE 95; RESP 20; TEMP 36.8; O2SAT 100
[2024-05-16] MEDS: 0.9% Normal Saline (1000mL) 1,000 ML 1000 ML IV (15:16)
[2024-05-16 15:20] VITALS: BP 157/109; PULSE 95; RESP 16; TEMP 36.6; O2SAT 97
[2024-05-16 15:28] LABS: Absolute Lymphocyte Count 1.65 X10^3/uL (0.83-4.51); Absolute Neutrophil Count 2.8 X10^3/uL (2.0-7.7); Basophil# 0.02 X10^3/uL; Basophil% 0.4 % (0-1); Eosinophil# 0.12 X10^3/uL; Eosinophils% 2.4 % (0-5); Hematocrit 36.4 % (37-47); Hemoglobin 11.5 g/dL (12.0-15.0); Lymphocyte # 1.65 X10^3/ul (0.83-4.51); Lymphocyte % 32.6 % (19-41); Mean Corp Hgb Conc 31.6 g/dL (32-36); Mean Corpuscular Hgb 24.4 pg (27.0-32.0); Mean Corpuscular Volume 77.1 fL (81-99); Mean Platelet Vol. 9.4 fl (6.2-12.0); Monocyte# 0.44 X10^3/uL; Monocyte% 8.7 % (0-10); NRBC Flagged by Analyzer 0 % (0-5); Neutrophil # 2.82 X10^3/uL (2.7-7.7); Neutrophil % 55.7 % (47-70); Platelet Count 316 K/mm3 (150-450); RBC Distribution Width CV 17.2 % (11.6-14.6); RBC Distribution Width SD 48.3 fl (35.1-43.9); Red Blood Count 4.72 M/mm3 (4.2-5.4); White Blood Count 5.1 K/mm3 (4.4-11.0)
[2024-05-16 15:35] LABS: Bedside Glucose 134 mg/dL (74-106)
[2024-05-16 15:44] LABS: Mucous, Urine 0 SEEN /hpf (<or=2+)
[2024-05-16 15:48] LABS: Color, Urine Yellow (Yellow); Glucose, Dipstick Normal (Normal); Leukocyte Esterase-Dipstick Negative /ul (Negative); Nitrite-Dipstick Negative (Negative); Occult Blood-Urine Negative /ul (Negative); Protein-Dipstick 30 mg/dl (Negative); Urine Bilirubin Dipstick Negative (Negative); Urine Clarity Clear (Clear); Urine Urobilinogen 1 mg/dl (Normal)
--- NOTE | 2024-05-16 15:51 | EDS_ITS ---
HPI History of Present Illness Chief Complaint: Nausea/Vomiting Detail of Chief Complaint: Chronic nausea with intermittent vomiting and abdominal pain as well as umb Informant: patient Onset/Context/Timing Onset: Weeks Context: Gradual Onset Timing: Intermittent and Waxes and wanes Quality: Nausea and vomiting, umbilical pain, umbilical rash, polyuria, polydipsia a Location: GI and endocrine Current Severity: Mild Maximum Severity: Moderate Worsened by: Patient states if she lays on her abdomen the pain is worse Relieved by: Nothing Associated Symptoms Associated Symptoms: Patient does endorse daily marijuana use Narrative Narrative: Patient is a 24-year-old woman. She is on no medications. She has not seen a doctor in some time. She has a BMI of 53.4. She presents with polyuria, polydipsia and nocturia. There is a family history of diabetes. She is never been diagnosed with diabetes. She denies fever, chills night sweats. She denies double vision blurred vision. She does endorse dry mouth. She denies sore throat. Denies rhinorrhea, congestion postnasal drainage. She denies cardiac or respiratory symptoms. She denies dyspnea on exertion, orthopnea or PND. The abdominal pain is generalized. The pain is worse when she lies on her abdomen. She also has a rash involving her umbilicus. She states she has noticed some bleeding at times. She has no history of hernia. She denies hematuria or dysuria. She denies vaginal rash or discharge. She denies skin lesions. Prior similar symptoms: No Recent Illness/Hospitalization: No PFSH PFSH Medical History Physical exam, pre-employment Neck pain Diarrhea Migraines Fatigue Shoulder pain Home Medications ?Medication ?Instructions ?Recorded ?Last Taken ?Type hydrochlorothiazide 12.5 mg tablet 12.5 mg PO DAILY #3 0 tabs 05/16/24 Unknown Rx Allergy/AdvReac Type Severity Reaction Status Date / Time prednisone Allergy Unknown Verified 05/16/24 13:22 Family History Other Arthritis Cancer Diabetes Hypertension Surgical History History of cholecystectomy Social History Smoking Status: Light Smoker (<10/day) alcohol intake: never ROS ROS ED Constitutional Constitutional ED: Denies chills, fever(s), subjective, sweats or weight loss Eyes Eyes: Denies blurry vision, change in vision or diplopia ENT ENT ED: Denies ear pain, rhinorrhea or sore throat Cardiovascular Cardiovascular: Denies chest pain, orthopnea, palpitations, paroxysmal nocturnal dyspnea or racing heartbeat Respiratory/Chest Respiratory/Chest: Denies cough, dyspnea, dyspnea on exertion, orthopnea or paroxysmal nocturnal dyspnea Gastrointestinal Gastrointestinal: Reports abdominal pain, nausea and vomiting; Denies constipation, diarrhea or melena Genitourinary Genitourinary ED: Reports urinary frequency; Denies dysuria or hematuria Musculoskeletal Musculoskeletal: Denies arthralgias, back pain or myalgias Integumentary Reports rash Neurologic Neurologic: Reports weakness; Denies headache(s) or paresthesias Psychiatric Psychiatric: Denies anxiety or depression Endocrine Endocrinology: Reports polydipsia and polyuria; Denies cold intolerance or heat intolerance Hematologic/Lymphatic Hematologic/Lymphatic: Reports systems reviewed and no addt'l complaints, except as documented Allergic/Immunologic Allergic/Immunologic ED: Denies mouth swelling or tongue swelling EXAM Physical Exam Const Vital Signs: 05/16/24 13:22 05/16/24 13:23 05/16/24 15:20 Temperature 98.2 F 98.2 F 98 F Temperature Source Oral Oral Temporal Pulse Rate 95 95 95 Respiratory Rate 20 H 20 H 16 Blood Pressure 178/100 H 178/100 H 157/109 H Blood Pressure Mean 126 126 125 Pulse Ox 100 100 97 Oxygen Delivery Method Room Air Room Air Room Air Positive well nourished and well developed Constitutional Narrative: BMI is 53.4. Vital signs are noted and blood pressure is elevated. General Appearance ED: well developed HEENT Reports moist mucous membranes HEENT Narrative: Head is atraumatic normocephalic. Ears normal. Nares patent. There is no discharge. Posterior pharynx is normal Eyes PERRL and EOMs intact bilaterally General Eye ED: Negative for pale conjunctiva or scleral icterus Neck no lymphadenopathy, supple and no JVD Resp normal respiratory effort and clear to auscultation bilaterally Cardio regular rate, regular rhythm, S1 normal heart sound, S2 normal heart sound and no murmurs GI non-tender, non-distended and no masses; Negative for normal to inspection, nondistended, normoactive bowel sounds or hepatosplenomegaly GI Narrative: Patient has a monilial rash of her umbilicus. There is no obvious umbilical hernia. There is no obvious right or left inguinal hernia. Back/Spine no CVA tenderness Extremity normal to inspection General Extremety ED: Negative for edema or tenderness General Extremity: Negative for edema Neuro oriented x3 and CN's II-XII intact bilaterally Sensorium / Orientation: alert Psych mental status grossly normal Skin Skin Narrative: Rash as previously described umbilicus MDM MDM MDM Narrative Medical decision making narrative: Patient's symptoms are concerning for new onset diabetes. BGT was ordered as well as electrolyte panel and CBC. Suspect her nausea vomiting abdominal pain is due to daily marijuana use. Also will consider abdominal pain of unknown etiology, IBS doubt appendicitis, she is status post cholecystectomy and no evidence of hernia. Will monitor blood pressure which is elevated. Will obtain electrolyte panel to assess for endorgan dysfunction as well as UA looking for proteinuria and hematuria. Lab Data Attestation: I reviewed the patient's lab results. Lab results narrative: Patient has microcytic anemia. CMP is remarkable for slightly elevated glucose of 127. Urine is remarkable for ketones. Specific gravity is 1.020. Patient is spilling protein and negative for occult blood. Since she has elevated blood pressure she will need this checked. Labs: Laboratory Results - last 24 hr 05/16/24 05/16/24 05/16/24 15:14 15:17 15:30 WBC 5.1 RBC 4.72 Hgb 11.5 L Hct 36.4 L MCV 77.1 L MCH 24.4 L MCHC 31.6 L RDW Std Deviation 48.3 H RDW Coeff of Afshin 17.2 H Plt Count 316 MPV 9.4 Immature Gran % (Auto) 0.200 Neut % (Auto) 55.7 Lymph % (Auto) 32.6 Phelps % (Auto) 8.7 Eos % (Auto) 2.4 Baso % (Auto) 0.4 Absolute Neuts (auto) 2.8 Absolute Lymphs (auto) 1.65 Nucleated RBC % 0 Sodium 137 Potassium 4.1 Chloride 104 Carbon Dioxide 23.2 Anion Gap 10 BUN 12 Creatinine 0.77 Estim Creat Clear Calc 146.45 Est GFR (MDRD) Non-Af 109 BUN/Creatinine Ratio 15.8 Glucose 127 H Calcium 9.4 Total Bilirubin 0.30 AST 20 ALT 22 Alkaline Phosphatase 69 Total Protein 7.5 Albumin 4.0 Globulin 3.4 Albumin/Globulin Ratio 1.2 Urine Color Yellow Urine Clarity Clear Urine pH 6.0 Ur Specific Caret 1.020 Urine Protein 30 H Urine Glucose (UA) Normal Urine Ketones 150 A* Urine Occult Blood Negative Urine Nitrite Negative Urine Bilirubin Negative Urine Urobilinogen 1 H Ur Leukocyte Esterase Negative Urine RBC 0-5 SEEN Urine WBC 0-5 SEEN Ur Squamous Epith Cells 0-5 SEEN Urine Bacteria 1+ Urine Mucus 0 SEEN POC Glucose 134 H Treatment and Re-Evaluation :: Patient does not have a primary care physician she was assigned to Dr. Renner. She was started on hydrochlorothiazide. Her monilial infection was treated with nystatin powder. 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
[2024-05-16 15:52] LABS: Ketone-Dipstick 150 mg/dl (Negative)
[2024-05-16 15:54] LABS: ALB/GLOB Ratio 1.2 RATIO (0.9-2.4); AST(SGOT) 20 U/L (<=31); Alanine Aminotransfer ALT/SGPT 22 U/L (<=34); Alkaline Phosphatase 69 U/L (35-104); Anion Gap 10 (5-15); BUN 12 mg/dL (4-19); BUN/Creat Ratio 15.8 RATIO (10-20); Calcium,Total 9.4 mg/dL (7.6-11.0); Carbon Dioxide 23.2 mmol/L (21.0-32.0); Chloride 104 mmol/L (98-108); Creatinine, Serum 0.77 mg/dL (0.70-1.20); EST Glomerular Filtration Rate 109 (>60); Estimated Creatinine Clearance 146.45 ml/min (50-250); Globulin 3.4 g/dL (2.2-4.2); Glucose 127 mg/dL (70-99); Potassium 4.1 mmol/L (3.3-5.1); Protein, Total 7.5 g/dL (5.9-8.4); Sodium Level 137 mmol/L (133-145)
[2024-05-16 16:06] LABS: Bacteria 1+ /hpf (None Seen); Squamous Epithelial Cells - UA 0-5 SEEN /hpf (5-10)
[2024-05-16 16:07] LABS: Red Blood Cells-Urine 0-5 SEEN /hpf (0-5); White Blood Cells 0-5 SEEN /hpf (0-5)
[2024-05-16 16:42] VITALS: BP 144/86; PULSE 85; RESP 16; TEMP 36.8; O2SAT 99
== END 2024-05-16 16:43 | disposition home or self-care (01) ==
PROVIDERS: Emergency Provider Emergency Medicine; Visit Provider Emergency Medicine
DX: R03.0 Elevated blood-pressure reading, without diagnosis of hypertension (principal); F12.20 Cannabis dependence, uncomplicated; D50.9 Iron deficiency anemia, unspecified; R11.2 Nausea with vomiting, unspecified; R10.84 Generalized abdominal pain; R10.33 Periumbilical pain; R21 Rash and other nonspecific skin eruption; R73.9 Hyperglycemia, unspecified; Z90.49 Acquired absence of other specified parts of digestive tract; F17.210 Nicotine dependence, cigarettes, uncomplicated
CPT/HCPCS: 80053; 81001; 82962; 85025; 96360; 99284; A4216

== ENCOUNTER 2024-07-04 09:31 | Emergency (ER) | payer MEDICAID, SELFPAY ==
[2024-07-04 09:31] VITALS: BP 154/87; PULSE 91; RESP 19; TEMP 36.2; O2SAT 99; BMI 55.9
--- NOTE | 2024-07-04 09:55 | EDS_ITS ---
HPI History of Present Illness Chief Complaint: Headache Informant: patient Narrative Narrative: Intermittent migraine headaches for last week more persistent over the last 2 days. Symptoms on the right side. Photophobia and phonophobia.Denies trauma denies fevers. Using [id number] aspirin powder that has caffeine no relief. She had diarrhea 2 weeks ago that resolved. No nausea or vomiting. History of migraines has been in the ER in the past a couple times per patient. No cardiac dysrhythmia history. Prior similar symptoms: Yes PFSH PFSH Medical History Physical exam, pre-employment Neck pain Diarrhea Migraines Fatigue Shoulder pain Home Medications ?Medication ?Instructions ?Recorded ?Last Taken ?Type hydrochlorothiazide 12.5 mg tablet 12.5 mg PO DAILY #3 0 tabs 05/16/24 Unknown Rx Allergy/AdvReac Type Severity Reaction Status Date / Time prednisone Allergy Unknown Verified 05/16/24 13:22 Family History Other Arthritis Cancer Diabetes Hypertension Surgical History History of cholecystectomy Social History Smoking Status: Light Smoker (<10/day) alcohol intake: never ROS ROS ED Constitutional Constitutional ED: Denies chills, fever(s) or sweats ENT ENT ED: Denies sore throat Cardiovascular Cardiovascular: Denies chest pain, leg edema, palpitations or racing heartbeat Respiratory/Chest Respiratory/Chest: Denies cough, dyspnea or dyspnea on exertion Gastrointestinal Gastrointestinal: Denies abdominal pain, diarrhea, nausea or vomiting Genitourinary Genitourinary ED: Denies dysuria, hematuria or urinary frequency Musculoskeletal Musculoskeletal: Denies back pain, extremity pain or neck pain Integumentary Denies rash or wounds Neurologic Neurologic: Reports headache(s); Denies paresthesias or weakness EXAM Physical Exam Const Vital Signs: 07/04/24 09:31 Temperature 97.2 F L Temperature Source Temporal Pulse Rate 91 Respiratory Rate 19 H Blood Pressure 154/87 H Blood Pressure Mean 109 Pulse Ox 99 Oxygen Delivery Method Room Air Positive well nourished and well developed General Appearance ED: well developed and NAD HEENT Reports moist mucous membranes normocephalic and atraumatic Eyes General Eye ED: Yes normal appearance of both eyes Neck full ROM and no meningeal signs Chest Wall Chest: Negative for tenderness Resp normal respiratory effort and normal air movement Effort and Inspection: symmetric chest movement; Negative for respiratory distress Cardio regular rate, regular rhythm and no murmurs Peripheral Pulses: pulses 2+ throughout GI normal to inspection, nondistended, normoactive bowel sounds and non-tender Palpation: Negative for guarding or rebound tenderness present Extremity normal to inspection General Extremety ED: Negative for edema or tenderness General Extremity: Negative for edema Neuro oriented x3, CN's II-XII intact bilaterally and no sensory deficits noted Sensorium / Orientation: awake and alert Skin no rashes or lesions noted and no wounds MDM MDM MDM Narrative Medical decision making narrative: Interventions / MDM: Differential diagnosis: Migraine headache Diagnosis considered but do not suspect: No clinical meningitis My EKG interpretation: N/A Imaging independently reviewed and interpreted by myself: N/A External documents reviewed: N/A Test considered but not ordered:N/A ED course: Nontoxic no focal deficits no meningismal findings. Migraine history. Will use subcu Imitrex and will reevaluate. Reevaluation symptoms resolved. Intermittent headache since he was. Adolescence she has seen pediatric neurologist in the past however did not return. She will be given follow-up with neurology for reevaluation. All questions were answered. Re-evaluation: stable Disposition discussed with patient/family/significant other: Patient Case discussed with consulting clinician: N/A This note was generated with [employer] dictation software. It may contain incorrect words, spelling, and punctuation that were not noted in checking the note before signing. Discharge Plan Triage Chief Complaint: Headache ED Provider: Marshall Sloan Dx/Rx/DC Orders Clinical Impression: Headache, migraine Instructions: ED, Migraine (Classical) Prescriptions: No Action hydrochlorothiazide 12.5 mg tablet 12.5 mg PO DAILY Qty: 30 0RF Stand Alone Forms: ED Work / School Excuse Primary Care Provider: Care Physician,No Primary Referrals: Itz Keller MD [Non-Staff -Ordering Privileges] - 1-2 Weeks Care Physician,No Primary [Primary Care Provider] - Print Language: Indonesian Disposition Disposition: Home, Self Care Discharge Date/Time: 07/04/24 10:42
[2024-07-04] MEDS: SUMAtriptan 6 MG/0.5 ML Vial SC (10:07)
== END 2024-07-04 10:42 | disposition home or self-care (01) ==
PROVIDERS: Emergency Provider Emergency Medicine; Visit Provider Emergency Medicine
DX: G43.909 Migraine, unspecified, not intractable, without status migrainosus (principal); Z90.49 Acquired absence of other specified parts of digestive tract
CPT/HCPCS: 96372; 99283; A4216; J3030

== ENCOUNTER → 2024-09-28 | Outpatient (CLI) | payer MEDICAID, SELFPAY ==
[2024-09-28 11:05] LABS: Hematocrit 34.0 % (37-47); Hemoglobin 10.8 g/dL (12.0-15.0); Immature Granulocytes Count 0.020 X10^3/uL (0.0-0.0); Mean Corp Hgb Conc 31.8 g/dL (32-36); Mean Corpuscular Volume 79.6 fL (81-99); Mean Platelet Vol. 9.7 fl (6.2-12.0); NRBC Flagged by Analyzer 0 % (0-5); Platelet Count 350 K/mm3 (150-450); RBC Distribution Width CV 16.4 % (11.6-14.6); RBC Distribution Width SD 47.3 fl (35.1-43.9); Red Blood Count 4.27 M/mm3 (4.2-5.4); White Blood Count 9.2 K/mm3 (4.4-11.0)
[2024-09-28 12:03] LABS: AST(SGOT) 21 U/L (<=31); Alanine Aminotransfer ALT/SGPT 22 U/L (<=34); Albumin, Serum 3.9 g/dL (3.5-5.0); Alkaline Phosphatase 69 U/L (35-104); Anion Gap 12 (5-15); BUN 11 mg/dL (4-19); BUN/Creat Ratio 12.5 RATIO (10-20); Calcium,Total 9.3 mg/dL (7.6-11.0); Carbon Dioxide 24.3 mmol/L (21.0-32.0); Chloride 100 mmol/L (98-108); Ferritin 16 ng/mL (22-378); Globulin 3.2 g/dL (2.2-4.2); Glucose 110 mg/dL (70-99); Potassium 4.1 mmol/L (3.3-5.1); Vitamin D,25 Hydroxy 29.8 ng/mL (30-100)
[2024-09-28 12:17] LABS: Iron 28 ug/dL (50-170); Iron Binding Capacity,Total 328 ug/dL (250-450); Iron Binding Capacity,Unsat 300 ug/dL (228-428)
== END | disposition home or self-care (01) ==
LOC: LAB 09:15
PROVIDERS: PCP Internal Medicine; Referring Provider Internal Medicine; Visit Provider Internal Medicine
DX: D64.9 Anemia, unspecified (principal); F32.A Depression, unspecified; F41.9 Anxiety disorder, unspecified; I10 Essential (primary) hypertension
CPT/HCPCS: 36415; 80053; 82306; 82728; 83540; 83550; 84443; 85025

== ENCOUNTER 2024-11-21 23:27 | Emergency (ER) | payer MEDICAID, SELFPAY ==
[2024-11-21 23:28] VITALS: BP 167/90; PULSE 87; RESP 18; TEMP 36.2; O2SAT 100; BMI 52.8
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
--- OUTSIDE RECORDS SUMMARY | 2024-11-22 00:06 | XMS RPT_ITS | CCD ---
Author Organization [facility] Care Team Providers Care Weight Analyst Name Role Phone JAQUAN JAMES Unavailable Unavailable REFERRED, SELF Unavailable Unavailable ROSAURAJOCELYNE P Unavailable Unavailable DIOGENES VILLALBA Unavailable Unavailable REFERRED, SELF Unavailable Unavailable ROSAURA, JOCELYNE P Unavailable Unavailable TOPINKA, GISEL A Consulting Unavailable TOPINKA, GISEL A Admitting Unavailable TOPINKAANA MUS A Attending Unavailable NONE, NONE Primary Care Unavailable NONE, NONE Consulting Unavailable NONE, NONE Primary Care Unavailable CESAR, KAYY K Admitting Unavailable CESAR, KAYY K Attending Unavailable RICHARD KEITH Consulting Unavailable NONE, NONE Consulting Unavailable NONE, NONE Primary Care Unavailable JAKOB APODACA Admitting Unavailable CONSTANZAJAKOB Cutler Attending Unavailable CONSTANZA JAKOB L Consulting Unavailable NONE, NONE Consulting Unavailable Unavailable Primary Care Provider Unavailomid e JOANNE ARAYA DO Attending Unavailable JOANNE ARAYA DO Primary Care Unavailable JOANNE ARAYA DO Admitting Unavailable Care Physician, No Primary Primary Care Provider Unavailable Dr. Leonel Aquino MD Attending Provider Dr. Leonel Aquino MD Emergency Provider [phone] Marshall Slona DO Emergency Provider Dr. Marshall Sloan DO Attending Provider Care Physician, No Primary Referring Provider Un available Dr. Rocío Valente MD Attending Provider Care Physician, No Primary Primary Care Unava ilable Marshall Sloan Attending Unavailable Rocío Valente Attending Unavailable Rocío Valente Referring Unavailable Rocío Valente Primary Care Unavailable Rocío Valente Attending Unavailable Rocío Valente Referring Unavailable Lehighton, Rocío Primary Care Unavailable Care Physician, No Primary Referring Unava ilable Lehighton, Rocío Attending Unavailable Care Physician, No Primary Primary Care Unava ilable Lehighton, Rocío Attending Unavailable Lehighton, Rocío Referring Unavailable Lehighton, Rocío Primary Care Unavailable Care Physician, No Primary Primary Care Unava ilable Aquino, Leonel Attending Unavailable Care Physician, No Primary Primary Care Unava ilable Monique Ferro Attending Unavailable Care Physician, No Primary Primary Care Unava ilable Ungur, Remus Attending Unavailable Sidra, Rocío Attending Unavailable Lehighton, Rocío Referring Unavailable Lehighton, Rocío Primary Care Unavailable Allergies Allergy Classification Reported Allergen(s) Allergy Type Date of Onset Reaction(s) Facility (8 sources) predniSONE; Translations: [PREDNISONE] Drug Allergy 4 Mental Status Change [facility] Repository Medications Current Medications Medication Drug Class(es) Dates Sig (Normalized) Sig (Original) acetaminophen 250 mg / aspirin 250 mg / caffeine 65 mg oral tablet (1 source) Platelet Aggregation Inhibitor, Nonsteroidal Anti-inflammatory Drug, Central Nervous System Stimulant, Methylxanthine Start: 08-17-2024 Aspirin-Acetamino phen-Caffeine (Excedrin Extra Strength) 250-250-65 mg tablet Active 1 {tbl} PO EVERY 4-6 HOURS as needed August 17, 2024 12:00am esomeprazole 20 mg delayed release oral capsule (1 source) Proton Pump Inhibitor Start: 08-17-2024 take 1 capsule by mouth once daily Esomeprazole Magnesium 20 mg capsule,delayed release(DR/EC) Active 20 mg PO daily August 17, 2024 12:00am [place] (Nk) (1 source) Start: 01-06-2022 [place] (Nk) Active January 06, 2022 12:00am Completed/Discontinued Medications Medication Drug Class(es) Dates Sig (Normalized) Sig (Original) albuterol 0.83 mg/ml inhalation solution (3 sources) beta2-Adrenergic Agonist Start: 05-25-19 End: 08-28-19 take 2.5 mg by inhalation every four hours as needed for wheezing Albuterol Sulfate 2.5 MG/3 ML solution for nebulization Discontinued 2.5 mg INHALATION EVERY 4 HOURS NEEDED May 25, 2019 12:00am August 28, 2019 1:11pm Use q4 hours and PRN for wheezing busPIRone hydrochloride 5 mg oral tablet (2 sources) busPIRone 5 mg t ablet Takes 10 mg in the Am and 10 mg at night - From [facility] psych 0 Active Comment on above: Takes 10 mg in the A m and 10 mg at night - From [facility] cloNIDine hydrochloride 0.1 mg oral tablet (2 sources) Central alpha-2 Adrenergic Agonist cloNIDine 0.1 mg tablet 0.1 mg. Takes 0.1 mg at bedtime - from [facility] psych 0 Active Comment on above: 0.1 mg. Takes 0.1 mg at bedtime - from [facility] doxycycline monohydrate 100 mg oral capsule (3 sources) Tetracycline-class Drug Start: 05-25-19 End: 08-28-19 take 1 capsule by mouth twice daily Doxycycline Monohydrate 100 MG capsule Discontinued 100 mg PO TWICE A DAY May 25, 2019 12:00am August 28, 2019 1:11pm hydroCHLOROthiazide 12.5 mg oral tablet (2 sources) Thiazide Diuretic Start: 05-17-19 End: 08-18-19 take 1 tablet by mouth once daily Hydrochlorothiazide 12.5 mg tablet Discontinued 12.5 mg PO DAILY May 16, 2024 1:00am August 17, 2024 1:50pm 1 ml medroxyPROGESTERone acetate 150 mg/ml prefilled syringe (2 sources) Progestin Start: 08-10-19 medroxyPROGESTERone (DEPO-PROVERA) 150 mg/mL Inject 1 mL intramuscularly every 12 weeks. 1 mL 3 08/10/2019 Active Comment on above: Inject 1 mL intramus cularly every 12 weeks. bx rating 24 hr methylphenidate hydrochloride 54 mg extended release oral tablet (4 sources) Central Nervous System Stimulant take 1 capsule by mouth once daily methylphenidate LA (RITALIN LA) 10 mg 24 hr capsule Take 10 mg by mouth once daily. 0 Active take 1 tablet by mouth once isaías y methylphenidate ER (CONCERTA) 54 mg CR tablet Take 54 mg by mouth once daily. 0 Active Comment on above: Take 54 mg by mouth once daily. Take 10 mg by mouth once daily. omeprazole 20 mg delayed release oral tablet (2 sources) Proton Pump Inhibitor Start: take 1 tablet by mouth once daily Omeprazole 20 mg TbEC Take 20 mg by mouth once daily. 30 tablet 0 02/15/2017 Active Comment on above: Take 20 mg by mouth once daily. phenazopyridine hydrochloride 200 mg oral tablet (3 sources) Start: End: take 1 tablet by mouth three times daily after mealtime Phenazopyridine 200 MG tablet Discontinued 200 mg PO THREE TIMES A DAY August 18, 2019 12:00am August 28, 2019 1:11pm 200 mg 3 times daily after meals for 2 days sertraline 25 mg oral tablet (2 sources) Serotonin Reuptake Inhibitor take 1 tablet by mouth once daily sertraline (ZOLOFT) 25 mg tablet Take 25 mg by mouth once daily. from [facility] 0 Active Comment on above: Take 25 mg by mouth once daily. from [facility] ziprasidone 20 mg oral capsule (2 sources) Atypical Antipsychotic ziprasidone (GEODON) 20 mg capsule 20 mg. Takes 40 mg in the morning and 60 mg in the PM - from [facility] psych 0 Active Comment on above: 20 mg. Takes 40 mg i n the morning and 60 mg in the PM - from [facility] psych Problems Active Problems Problem Classification Problem Date Documented Date Episodic/Chronic Administrative/social admission (1 source) First encounter by subject; Translations: [Persons encountering health services in other specified circumstances] 08-17-2024 Episodic Allergic reactions (1 source) Allergy status to other drugs, medicaments and biological substances status; Translations: [Allergy status to other drugs, medicaments and biological substances] Onset: 09-02-2023 Episodic Anxiety disorders (1 source) Anxiety disorder, unspecified; Translations: [Anxiety disorder, unspecified] Onset: 09-28-2024 Chronic Attention-deficit, conduct, and disruptive behavior disorders (2 sources) Attention deficit hyperactivity disorder; Translations: [Attention-deficit hyperactivity disorder, unspecified type] Onset: 07-26-2011 07-26-2011 Chronic Attention-deficit, conduct, and disruptive behavior disorders (2 sources) Oppositional defiant disorder; Translations: [Oppositional defiant disorder] Onset: 07-26-2011 07-26-2011 Chronic Chronic obstructive pulmonary disease and bronchiectasis (3 sources) Bronchitis; Translations: [Bronchitis, not specified as acute or chronic] 05-26-2019 Episodic Deficiency and other anemia (2 sources) Microcytic anemia; Translations: [Iron deficiency anemia, unspecified] 05-24-2024 Episodic Deficiency and other anemia (1 source) Anemia, unspecified; Translations: [Anemia, unspecified] Onset: 10-03-2024 Episodic E Codes: Fall (2 sources) Fall; Translations: [Unspecified fall, initial encounter] 01-23-2024 Episodic Esophageal disorders (1 source) Gastro-esophageal reflux disease without esophagitis; Translations: [Gastro-esophageal reflux disease without esophagitis] Onset: 11-16-2024 Chronic Essential hypertension (2 sources) Essential hypertension; Translations: [Essential (primary) hypertension] Onset: 09-28-2024 08-17-2024 Chronic Genitourinary symptoms and ill-defined conditions (9 sources) Increased frequency of urination; Translations: [Frequency of micturition] 08-28-2019 Episodic Headache; including migraine (6 sources) Migraine, unspecified, not intractable, without status migrainosus; Translations: [Migraine] Onset: 09-02-2023 Chronic Immunizations and screening for infectious disease (6 sources) Patient encounter status; Translations: [Encounter for laboratory testing for COVID-19 virus] 01-06-2022 Episodic Menstrual disorders (6 sources) Irregular periods; Translations: [Irregular menstruation, unspecified] Onset: 05-24-2015 05-24-2015 Chronic Mood disorders (1 source) Mood disorders; Translations: [Depression, unspecified] Onset: 09-28-2024 Mycoses (2 sources) Candidiasis of skin; Translations: [Candidiasis of skin and nail] 05-24-2024 Episodic Other circulatory disease (2 sources) Elevated blood-pressure reading without diagnosis of hypertension; Translations: [Elevated blood-pressure reading, without diagnosis of hypertension] 05-24-2024 Episodic Other lower respiratory disease (2 sources) Cough; Translations: [COUGH] Onset: 05-04-2019 Episodic Other nutritional; endocrine; and metabolic disorders (2 sources) Body mass index 40+ - severely obese; Translations: [Body mass index (BMI) 50.0-59.9, adult] 05-24-2024 Chronic Other screening for suspected conditions (not mental disorders or infectious disease) (1 source) Cancer cervix screening status; Translations: [Encounter for screening for malignant neoplasm of cervix] 08-17-2024 Episodic Other upper respiratory disease (3 sources) Seasonal allergic rhinitis; Translations: [Other seasonal allergic rhinitis] 03-11-2020 Chronic Other upper respiratory infections (10 sources) Acute pharyngitis, unspecified; Translations: [Sore throat symptom] Onset: 02-21-2019 Episodic Residual codes; unclassified (1 source) Procedure and treatment not carried out due to patient leaving prior to being seen by health care provider; Translations: [Procedure and treatment not carried out due to patient leaving prior to being seen by health care provider] Onset: 09-02-2023 Episodic Skin and subcutaneous tissue infections (2 sources) Cutaneous abscess of chest wall; Translations: [CUTANEOUS ABSCESS OF CHEST WALL] Onset: 04-29-2019 Episodic Substance-related disorders (2 sources) Cannabis hyperemesis syndrome co-occurrent and due to cannabis dependence; Translations: [Cannabis dependence with other cannabis-induced disorder] 05-24-2024 Chronic Superficial injury; contusion (2 sources) Abrasion of left ring finger; Translations: [Abrasion of left ring finger, initial encounter] 01-23-2024 Episodic Past or Other Problems Problem Classification Problem Date Documented Da te Episodic/Chronic Diabetes mellitus without complication (3 sources) Acute hyperglycemia; Translations: [Hyperglycemia, unspecified] Onset: 08-17-2024 05-24-2024 Episodic Open wounds of extremities (3 sources) Laceration of right knee; Translations: [Laceration without foreign body, right knee, initial encounter] Onset: 08-17-2024 01-23-2024 Episodic Other circulatory disease (1 source) Elevated blood-pressure reading, without diagnosis of hypertension; Translations: [Elevated blood-pressure reading, without diagnosis of hypertension] Onset: 08-17-2024 Episodic Other skin disorders (2 sources) Acne vulgaris; Translations: [Acne vulgaris] Onset: 05-24-2015 05-24-2015 Episodic Sprains and strains (5 sources) Sprain of right ankle; Translations: [Sprain of unspecified ligament of right ankle, initial encounter] Onset: 08-17-2024 11-28-2023 Episodic Suicide and intentional self-inflicted injury (2 sources) Suicide attempt ; Translations: [Suicide attempt, initial encounter] Onset: 06-17-2015 03-10-2021 Episodic Results Test Name Value Interpretation Reference Range Facility Internal Medicine Office Vis itojulio c 11-15-2024 Internal Medicine Office Visit [facility] [address] [place], [place] [address] OFFICE VISIT Date of Service: 11/16/24 MR#: [id number] Acct: [id number] Name: MELLY HINKLE Rep #: [id number] : 2000 Provider: Dr. Rocío hernandez MD Age/Sex: 24/F Location: [facility] Status: Signed Intake Vital Signs 09/28/24 08:30 11/16/24 08:05 Height 5 ft 2 in 5 ft 2 in Weight: 289 lb BMI 52.8 BP 138/94 H Blood Pressure Location Lt brachial Position Sitting Respiration 16 Pulse 78 Pulse Source Monitor Temp 97.4 F L Temp Source Temporal Pulse Oximetry (%) 98 Oxygen Delivery Method room air Intake Visit Reasons: 7 WK FU Chief Complaint: bp check Emergency Medical Dispatcher Required: No Is patient in pain?: No Allergies No Known Allergies Allergy (Verified 11/16/24 07:55) Medications ???Medication ???Instructions ???Recorded ???Confirmed ???Type tbvldgk-hpwoxeogudoii-fyr feine 250 1 tab PO Q4-6H PRN 08/17/2407/07 History mg-250 mg-65 mg tablet (Excedrin Extra Strength) hydrochlorothiazide 12.5 mg tablet 12.5 mg PO QAM #90 tabs 10/02/24 11/16/24 Rx aripiprazole 5 mg tablet (Abilify) 5 mg PO QHS #30 tabs 11/16/24 Rx escitalopram oxalate 10 mg tablet 10 mg PO QDAY #30 tabs 11/16/24 0 11/16/24 Rx (Lexapro) rabeprazole 20 mg tablet,delayed 20 mg PO QDAY #30 tabs 11/16/24 Rx release Nurse's Note: Pt states she is taking the hctz, but has not got a home monitor yet, so does not know how bp is running. Pt is feeling good on it. Denies any side effects. Pt states that she and her do not think that abilify is working like it should as there are still severe mood swings. Pt states that the lexapro worked much better but due to the jitters she can not. Pt has a lot of uncertainty in what meds she is currently taking. She is on the phone w/ , but fell asleep. Pt states she is currently still taking abilify, and not the lexapro unless it was changed. She is only on 1 heartburn med that is yellow and oval but is uncertain as to what the name is, but thinks it needs upped. [facility] Medical History GERD (gastroesophageal reflux disease) Neck pain Diarrhea Migraines Fatigue Shoulder pain Surgical History History of skin surgery History of cholecystectomy Family History Father Alcoholism Grandfather Alcoholism Heart disease Hypertension Hyperlipidemia Cancer melanoma Uncle Alcoholism Grandfather Alcoholism Arthritis Cancer colon Heart disease Hypertension Hyperlipidemia Age related osteoporosis Grandmother Anxiety Arthritis Diabetes Hypertension Hyperlipidemia Age related osteoporosis Thyroid disorder Dementia Mother IBS (irritable bowel syndrome) Grandmother Cancer cervical Diabetes Hypertension Hyperlipidemia Social History adopted: No household members: spouse number of children: 0 current occupational status: unemployed pets and animals: Yes (2) pets and animals: dog(s) sexually active: Yes Smoking Status: Former smoker quit date: 06/13/24 Tobacco: How many years used: 10 Smokeless tobacco user: chewing tobacco alcohol intake: current alcohol intake frequency: holidays/special occasions only Alcohol type: beer, wine and hard liquor details: >3 in 1 sitting substance use type: marijuana caffeine: Yes (2) Type: carbonated beverages frequency: 1-2 times per week do you feel safe at home: Yes HPI HPI Chief Complaint: bp check Details: MELLY HINKLE, is a 24 F who presents to the office today for a follow up. She is due for some follow up blood work. She has an upcoming appointment with OBGYN. She previously declined any COVID/flu vaccines. She doesn't smoke and doesn't need any refills today. She reports she is trying to eat healthier and is staying active. She doesn't check her blood pressure at home. She states she needs to get a new machine. She has been taking her medication as prescribed without problems. She has been trying to watch her salt intake. She reports her mental health hasn't made much of a difference. She reports that she has been taking her medication as prescribed and hasn't noticed any problems with it so far, but she continues to struggle with her symptoms. She does have an appointment with psychiatry scheduled in January. She denies any thoughts of suicide. She feels that her GERD symptoms have started to flare up again. She states the protonix no longer seems to be helping. She questions if she can get a higher dose or an alternative medication to help (more content not included)... Normal [facility] CBC W/Diff, Automatedon 09-12 Absolute Lymph 1.79 X10 3/uL Normal 0.83-4.51 [facility] Comment on above: Performed By: #### L 506.1001, L503.6030, L500.4050, L100.0100, L501.9520, L503.6550 #### [facility] [address] [place], [address] Absolute Neut 6.5 X10 3/uL Normal 2.0-7.7 [facility] Comment on above: Performed By: #### L 506.1001, L503.6030, L500.4050, L100.0100, L501.9520, L503.6550 #### [facility] [address] [place], [address] Basophils/100 WBC (Bld) 0.3 % Normal 0-1 [facility] Comment on above: Performed By: #### L 506.1001, L503.6030, L500.4050, L100.0100, L501.9520, L503.6550 #### [facility] [address] [place], [address] Eosinophils/100 WBC (Bld) 2.2 % Normal 0-5 [facility] Comment on above: Performed By: #### L 506.1001, L503.6030, L500.4050, L100.0100, L501.9520, L503.6550 #### [facility] [address] [place], [address] Erythrocyte distribution width (RBC) [Ratio] 16.4 % High 11.6-14.6 [facility] Comment on above: Performed By: #### L 506.1001, L503.6030, L500.4050, L100.0100, L501.9520, L503.6550 #### [facility] [address] [place], [address] Hematocrit (Bld) [Volume fraction] 34.0 % Low 37-47 [facility] Comment on above: Performed By: #### L 506.1001, L503.6030, L500.4050, L100.0100, L501.9520, L503.6550 #### [facility] [address] [place], [address] Hemoglobin (Bld) [Mass/Vol] 10.8 g/dL Low 12.0-15.0 [facility] Comment on above: Performed By: #### L 506.1001, L503.6030, L500.4050, L100.0100, L501.9520, L503.6550 #### [facility] [address] [place], [address] IG% 0.200 Normal 0.0-0.9 [facility] Comment on above: Result Comment: IG% - Immature Granulocytes (promyelocytes, myelocytes and metamyelocytes) > 1% indicates that a LEFT SHIFT is Present. Performed By: #### L 506.1001, L503.6030, L500.4050, L100.0100, L501.9520, L503.6550 #### [facility] [address] [place], [address] Lymphocytes/100 WBC (Bld) 19.5 % Normal 19-41 [facility] Comment on above: Performed By: #### L 506.1001, L503.6030, L500.4050, L100.0100, L501.9520, L503.6550 #### [facility] [address] [place], [address] MCH (RBC) [Entitic mass] 25.3 pg Low 27.0-32.0 [facility] Comment on above: Performed By: #### L 506.1001, L503.6030, L500.4050, L100.0100, L501.9520, L503.6550 #### [facility] [address] [place], [address] MCHC (RBC) [Mass/Vol] 31.8 g/dL Low 32-36 [facility] Comment on above: Performed By: #### L 506.1001, L503.6030, L500.4050, L100.0100, L501.9520, L503.6550 #### [facility] [address] [place], [address] MCV (RBC) [Entitic vol] 79.6 fL Low 81-99 [facility] Comment on above: Performed By: #### L 506.1001, L503.6030, L500.4050, L100.0100, L501.9520, L503.6550 #### [facility] [address] [place], [address] Monocytes/100 WBC (Bld) 7.4 % Normal 0-10 [facility] Comment on above: Performed By: #### L 506.1001, L503.6030, L500.4050, L100.0100, L501.9520, L503.6550 #### [facility] [address] [place], [address] Neutrophils/100 WBC (Bld) 70.4 % High 47-70 [facility] Comment on above: Performed By: #### L 506.1001, L503.6030, L500.4050, L100.0100, L501.9520, L503.6550 #### [facility] [address] [place], [address] Nucleated RBC (Bld) [#/Vol] 0 10*3/uL Normal 0-5 [facility] Comment on above: Performed By: #### L 506.1001, L503.6030, L500.4050, L100.0100, L501.9520, L503.6550 #### [facility] [address] [place], [address] Platelet mean volume (Bld) [Entitic vol] 9.7 fL Normal 6.2-12.0 [facility] Comment on above: Performed By: #### L 506.1001, L503.6030, L500.4050, L100.0100, L501.9520, L503.6550 #### [facility] [address] [place], [address] Platelets (Bld) [#/Vol] 350 10*3/uL Normal 150-450 [facility] Comment on above: Performed By: #### L 506.1001, L503.6030, L500.4050, L100.0100, L501.9520, L503.6550 #### [facility] [address] [place], [address] RBC (Bld) [#/Vol] 4.27 10*6/uL Normal 4.2-5.4 [facility] Comment on above: Performed By: #### L 506.1001, L503.6030, L500.4050, L100.0100, L501.9520, L503.6550 #### [facility] [address] [place], [address] RDW SD 47.3 fl High 35.1-43.9 [facility] Comment on above: Performed By: #### L 506.1001, L503.6030, L500.4050, L100.0100, L501.9520, L503.6550 #### [facility] [address] [place], [address] WBC (Bld) [#/Vol] 9.2 10*3/uL Normal 4.4-11.0 [facility] Comment on above: Performed By: #### L 506.1001, L503.6030, L500.4050, L100.0100, L501.9520, L503.6550 #### [facility] [address] [place], [address] Comprehensive Metabolic [facility] 09-28-2024 Albumin [Mass/Vol] 3.9 g/dL Normal 3.5-5.0 [facility] Comment on above: Performed By: #### L 506.1001, L503.6030, L500.4050, L100.0100, L501.9520, L503.6550 #### [facility] [address] [place], [address] Albumin/Globulin [Mass ratio] 1.2 {ratio} Normal 0.9-2.4 [facility] Comment on above: Performed By: #### L 506.1001, L503.6030, L500.4050, L100.0100, L501.9520, L503.6550 #### [facility] [address] [place], [address] ALK PHOS 69 U/L Normal 35-104 [facility] Comment on above: Performed By: #### L 506.1001, L503.6030, L500.4050, L100.0100, L501.9520, L503.6550 #### [facility] [address] [place], [address] ALT [Catalytic activity/Vol] 22 U/L Normal <=34 [facility] Comment on above: Performed By: #### L 506.1001, L503.6030, L500.4050, L100.0100, L501.9520, L503.6550 #### [facility] [address] [place], [address] AST [Catalytic activity/Vol] 21 U/L Normal <=31 [facility] Comment on above: Performed By: #### L 506.1001, L503.6030, L500.4050, L100.0100, L501.9520, L503.6550 #### [facility] [address] [place], [address] Bilirubin [Mass/Vol] 0.34 mg/dL Normal 0.00-1.30 [facility] Comment on above: Performed By: #### L 506.1001, L503.6030, L500.4050, L100.0100, L501.9520, L503.6550 #### [facility] [address] [place], [address] BUN/CRE 12.5 RATIO Normal 10-20 [facility] Comment on above: Performed By: #### L 506.1001, L503.6030, L500.4050, L100.0100, L501.9520, L503.6550 #### [facility] [address] [place], [address] Calcium [Mass/Vol] 9.3 mg/dL Normal 7.6-11.0 [facility] Comment on above: Performed By: #### L 506.1001, L503.6030, L500.4050, L100.0100, L501.9520, L503.6550 #### [facility] [address] [place], [address] Chloride [Moles/Vol] 100 mmol/L Normal 98-108 [facility] Comment on above: Performed By: #### L 506.1001, L503.6030, L500.4050, L100.0100, L501.9520, L503.6550 #### [facility] [address] [place], [address] CO2 [Moles/Vol] 24.3 mmol/L Normal 21.0-32.0 [facility] Comment on above: Performed By: #### L 506.1001, L503.6030, L500.4050, L100.0100, L501.9520, L503.6550 #### [facility] [address] [place], [address] Creatinine [Mass/Vol] 0.88 mg/dL Normal 0.70-1.20 [facility] Comment on above: Performed By: #### L 506.1001, L503.6030, L500.4050, L100.0100, L501.9520, L503.6550 #### [facility] [address] [place], [address] GAP 12 Normal 5-15 [facility] Comment on above: Performed By: #### L 506.1001, L503.6030, L500.4050, L100.0100, L501.9520, L503.6550 #### [facility] [address] [place], [address] GFR/1.73 sq M.predicted among non-blacks MDRD (S/P/Bld) [Vol rate/Area] 94 mL/min/{1.73_m2} Normal >60 [facility] Comment on above: Result Comment: mL/m in/1.73m2 CKD-EPI Creatinine Equation (2020) Performed By: #### L 506.1001, L503.6030, L500.4050, L100.0100, L501.9520, L503.6550 #### [facility] [address] [place], [address] Globulin (S) [Mass/Vol] 3.2 g/dL Normal 2.2-4.2 [facility] Comment on above: Performed By: #### L 506.1001, L503.6030, L500.4050, L100.0100, L501.9520, L503.6550 #### [facility] [address] [place], [address] Glucose [Mass/Vol] 110 mg/dL High 70-99 [facility] Comment on above: Performed By: #### L 506.1001, L503.6030, L500.4050, L100.0100, L501.9520, L503.6550 #### [facility] [address] [place], [address] Potassium [Moles/Vol] 4.1 mmol/L Normal 3.3-5.1 [facility] Comment on above: Performed By: #### L 506.1001, L503.6030, L500.4050, L100.0100, L501.9520, L503.6550 #### [facility] [address] [place], [address] Sodium [Moles/Vol] 136 mmol/L Normal 133-145 [facility] Comment on above: Performed By: #### L 506.1001, L503.6030, L500.4050, L100.0100, L501.9520, L503.6550 #### [facility] [address] [place], [address] T PROT 7.0 g/dL Normal 5.9-8.4 [facility] Comment on above: Performed By: #### L 506.1001, L503.6030, L500.4050, L100.0100, L501.9520, L503.6550 #### [facility] [address] [place], [address] Urea nitrogen [Mass/Vol] 11 mg/dL Normal 4-19 [facility] Comment on above: Performed By: #### L 506.1001, L503.6030, L500.4050, L100.0100, L501.9520, L503.6550 #### [facility] [address] [place], [address] Ferritinon 09-28-2024 Ferritin [Mass/Vol] 16 ng/mL Low 22-378 [facility] Comment on above: Performed By: #### L 506.1001, L503.6030, L500.4050, L100.0100, L501.9520, L503.6550 #### [facility] [address] [place], [address] Iron+Iron Binding Capacityon 09-28-2024 Iron [Mass/Vol] 28 ug/dL Low 50-170 [facility] Comment on above: Performed By: #### L 506.1001, L503.6030, L500.4050, L100.0100, L501.9520, L503.6550 #### [facility] [address] [place], [address] IRON SATURATION 9.0 Low 13-59 [facility] Comment on above: Performed By: #### L 506.1001, L503.6030, L500.4050, L100.0100, L501.9520, L503.6550 #### [facility] [address] [place], [address] TIBC 328 ug/dL Normal 250-450 [facility] Comment on above: Performed By: #### L 506.1001, L503.6030, L500.4050, L100.0100, L501.9520, L503.6550 #### [facility] [address] [place], [address] UIBC 300 ug/dL Normal 228-428 [facility] Comment on above: Performed By: #### L 506.1001, L503.6030, L500.4050, L100.0100, L501.9520, L503.6550 #### [facility] [address] [place], [address] Thyroid Stim Hormone (TSH)on 09-28-2024 TSH 0.577 uIU/mL Normal 0.300-4.200 [facility] Comment on above: Performed By: #### L 506.1001, L503.6030, L500.4050, L100.0100, L501.9520, L503.6550 #### [facility] [address] [place], [address] Vitamin D,25 Hydroxyon 09-28 Vitamin D 25-OH 29.8 ng/mL Low 30-100 [facility] Comment on above: Result Comment: Adelina min D Status Deficiency: <20 ng/mL (50nmol/L) Insufficiency: 20-30 ng/mL (50-75 nmol/L) Sufficiency: 30-100 ng/mL (75-250 nmol/L) Toxicity: >100 ng/mL (>250 nmol/L) Performed By: #### L 506.1001, L503.6030, L500.4050, L100.0100, L501.9520, L503.6550 #### [facility] [address] [place], [address] Internal Medicine Office Vis nahum 09-27-2024 Internal Medicine Office Visit [facility] [address] [place], [place] [address] OFFICE VISIT Date of Service: 09/28/24 MR#: [id number] Acct: [id number] Name: MELLY HINKLE Rep #: [id number] : 2000 Provider: Dr. Rocío hernandez MD Age/Sex: 24/F Location: [facility] Status: Signed Intake Vital Signs 08/17/24 13:57 09/28/24 08:30 Height 5 ft 2 in 5 ft 2 in Weight: 290 lb 6 oz BMI 53.1 BP 136/80 H Blood Pressure Location Lt brachial Position Sitting Respiration 16 Pulse 83 Pulse Source Monitor Temp 98.2 F Temp Source Temporal Pulse Oximetry (%) 95 Intake Visit Reasons: 6 wk FU Chief Complaint: Restlessness / Anxious Emergency Medical Dispatcher Required: No Accompanied by: Self Is patient in pain?: No Allergies No Known Allergies Allergy (Verified 09/28/24 08:31) Medications ???Medication ???Instructions ???Recorded ???Confirmed ???Type izmtfbn-obbwzcupcqyun-phz feine 250 1 tab PO Q4-6H PRN 08/17/2409/12 History mg-250 mg-65 mg tablet (Excedrin Extra Strength) esomeprazole magnesium 20 mg 20 mg PO QDAY 08/17/24 09/28/24 Hi story capsule,delayed release pantoprazole 40 mg tablet,delayed 40 mg PO QDAY #30 tabs 08/17/24 0 09/28/24 Rx release (Protonix) hydrochlorothiazide 12.5 mg tablet 12.5 mg PO QAM 08/31/24 09/28/24 History escitalopram oxalate 10 mg tablet 10 mg PO QDAY #30 tabs 09/25/24 0 09/28/24 Rx (Lexapro) Nurse's Note: Restlessness and anxiousness has been getting worse for the last month. Says the Abilify may have caused the restlessness, and is getting better after switching to Lexapro. [facility] Medical History GERD (gastroesophageal reflux disease) Neck pain Diarrhea Migraines Fatigue Shoulder pain Surgical History History of skin surgery History of cholecystectomy Family History Father Alcoholism Grandfather Alcoholism Heart disease Hypertension Hyperlipidemia Cancer melanoma Uncle Alcoholism Grandfather Alcoholism Arthritis Cancer colon Heart disease Hypertension Hyperlipidemia Age related osteoporosis Grandmother Anxiety Arthritis Diabetes Hypertension Hyperlipidemia Age related osteoporosis Thyroid disorder Dementia Mother IBS (irritable bowel syndrome) Grandmother Cancer cervical Diabetes Hypertension Hyperlipidemia Social History adopted: No household members: spouse number of children: 0 current occupational status: unemployed pets and animals: Yes (2) pets and animals: dog(s) sexually active: Yes Smoking Status: Former smoker quit date: 06/13/24 Tobacco: How many years used: 10 Smokeless tobacco user: chewing tobacco alcohol intake: current alcohol intake frequency: holidays/special occasions only Alcohol type: beer, wine and hard liquor details: >3 in 1 sitting substance use type: marijuana caffeine: Yes (2) Type: carbonated beverages frequency: 1-2 times per week do you feel safe at home: Yes HPI HPI Chief Complaint: Restlessness / Anxious Details: MELLY HINKLE, is a 24 F who presents to the office today for a follow up. She is due for some routine blood work. She has an upcoming appointment with OBGYN. She previously declined any COVID/flu vaccines. She doesn't smoke and doesn't need any refills today. She reports she is trying to eat healthier and is staying active. She reports her mother in law checked her blood pressure last night and reports it was 148 systolic. She doesn't recall what the diastolic reading was. She did take the HCTZ this morning because of it. She states she has not been taking it consistently. She has been trying to watch her salt intake. At her last office visit, she had concerns about her mental health. Vraylar was ordered, but not covered by insurance. She was then changed to abilify. She reports it made her very restless and agitated so it was stopped. She did take it for a month and felt it did help with her mental health, but wasn't able to tolerate the side effects. She was started on lexapro earlier this week. She reports that she has been taking it as prescribed and hasn't noticed any problems with it so far. She does have an appointment with psychiatry scheduled. She denies any thoughts of suicide. She reports her GERD symptoms have been doing better with the protonix. She denies any problems with the medication and is taking it as prescribed. The boil from her last office visit has resolved. Since then, she did have one other for which she was seen and treated at the urgent care. She reports that it also resolved and she denies any new lesions. The patient reports she continues to have the re (more content not included)... Normal [facility] Office Visit Reporton [address] [facility] [address] [place] [address] OFFICE VISIT Date of Service: 08/31/24 MR#: [id number] Acct: [id number] Patient: MELLY HINKLE Rep #: [id number] : 2000 Provider: DEMETRI NURSE Age/Sex: 24/F Location: [facility] Status: Signed Intake Vital Signs 08/17/24 13:57 08/31/24 08:32 Height 5 ft 2 in Weight: 302 lb BMI 55.2 BP 146/100 H 128/76 H Blood Pressure Location Lt brachial Lt brachial Position Sitting Sitting Respiration 16 Pulse 92 Pulse Source Monitor Temp 98.6 F Temp Source Temporal Pulse Oximetry (%) 98 Oxygen Delivery Method room air Intake Visit Reasons: bp check Chief Complaint: bp check Allergies No Known Allergies Allergy (Verified 08/31/24 08:32) Medications ???Medication ???Instructions ???Recorded ???Confirmed ???Type bqjkkic-bctkaxpcdpkqc-ijd feine 250 1 tab PO Q4-6H PRN 08/17/2408/13 History mg-250 mg-65 mg tablet (Excedrin Extra Strength) esomeprazole magnesium 20 mg 20 mg PO QDAY 08/17/24 08/31/24 Hi story capsule,delayed release pantoprazole 40 mg tablet,delayed 40 mg PO QDAY #30 tabs 08/17/24 0 08/31/24 Rx release (Protonix) aripiprazole 10 mg tablet (Abilify) 10 mg PO QHS #30 tabs 08/22/24 08/31/24 Rx hydrochlorothiazide 12.5 mg tablet 12.5 mg PO QAM 08/31/24 08/31/24 History Assessment and Plan Assessment and Plan (1) Essential hypertension: 08/31/24 1556 Date Rocío Valente MD Cosignhenny Signature: Date (if applicable) CC: Normal [facility] Internal Medicine Office Vis iton 08-17-2024 Internal Medicine Office Visit [facility] [address] [place] [address] OFFICE VISIT Date of Service: 08/17/24 MR#: [id number] Acct: [id number] Name: MELLY HINKLE Rep #: [id number] : 2000 Provider: Dr. 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 EST C[facility] - [facility]W SENT Emergency Medical Dispatcher Required: No Is patient in pain?: No Allergies No Known Allergies Allergy (Verified 08/17/24 13:50) Medications ???Medication ???Instructions ???Recorded ???Confirmed ???Type odywgmq-xpkrvaiozpjkp-naz feine 250 1 tab PO Q4-6H PRN 08/17/24 06/08/06 History mg-250 mg-65 mg tablet (Excedrin Extra Strength) cariprazine 1.5 mg capsule 1.5 mg PO QDAY #30 caps 08/17/24 0 08/17/24 Rx (Vraylar) doxycycline hyclate 100 mg 100 mg PO BID #10 tabs 08/17/24 Rx tablet,delayed release esomeprazole magnesium 20 mg 20 mg PO QDAY 08/17/24 08/17/24 Hi story capsule,delayed release pantoprazole 40 mg tablet,delayed 40 mg PO QDAY #30 tabs 08/17/24 0 08/17/24 Rx release (Protonix) Nurse's Note: Pt dc'd hctyz as her mom is a nurse and told her to wait until she established w/ a Dr. Pt has not seen a pcp in 6 years. Pt went to the ER on 05/2024 and possible dm was questioned no a1c ran and advised to f/u w/ pcp. [facility] Medical History GERD (gastroesophageal reflux disease) Neck pain Diarrhea Migraines Fatigue Shoulder pain Surgical History History of skin surgery History of cholecystectomy Family History (Updated 08/17/24 @ 14:[address] Rocío Valente MD) Father Alcoholism Grandfather Alcoholism Heart disease Hypertension Hyperlipidemia Cancer melanoma Uncle Alcoholism Grandfather Alcoholism Arthritis Cancer colon Heart disease Hypertension Hyperlipidemia Age related osteoporosis Grandmother Anxiety Arthritis Diabetes Hypertension Hyperlipidemia Age related osteoporosis Thyroid disorder Dementia Mother IBS (irritable bowel syndrome) Grandmother Cancer cervical Diabetes Hypertension Hyperlipidemia Social History (Updated 08/17/24 @ 14:[address] Rocío Valente MD) adopted: No household members: spouse number of children: 0 current occupational status: unemployed pets and animals: Yes (2) pets and animals: dog(s) sexually active: Yes Smoking Status: Former smoker quit date: 06/13/24 Tobacco: How many years used: 10 Smokeless tobacco user: chewing tobacco alcohol intake: current alcohol intake frequency: holidays/special occasions only Alcohol type: beer, wine and hard liquor details: >3 in 1 sitting substance use type: marijuana caffeine: Yes (2) Type: carbonated beverages frequency: 1-2 times per week do you feel safe at home: Yes Questionnaire PQH-9 BMS Over the last 2 weeks, how often have you been bothered by any of the following problems? 1. Little interest or pleasure in doing things: several days 2. Feeling down, depressed, or hopeless: more than half the days 3. Trouble falling or staying asleep, or sleeping too much: nearly every day 4. Feeling tired or having little energy: several days 5. Poor appetite or overeating: more than half the days 6. Feeling bad about yourself - or that you are a failure or have let yourself and your family down: nearly every day 7. Trouble concentrating on things, such as reading the newspaper or watching television: more than half the days 8. Moving or speaking so slowly that other people could have noticed? - Or the opposite - being so fidgety or restless that you have been moving around a lot more than usual: nearly every day 9. Thoughts that you would be better off or of hurting yourself in some way: several days Total score: 18 If you checked off any problems, how difficult have these problems made it for you to do your work, take care of things at home, or get along with other people?: somewhat difficult Source: Developed by Drs. Girish William, Juani Ferrara, Mc Pérez and colleagues, with an educational nellie from [employer]. TOM-7 BMS TOM-7 Feeling nervous, anxious, or on edge: 1 = Several days Not being able to stop or control worryin = Nearly every day Worrying too much about different things: 3 = Nearly every day Trouble relaxin = More than half the days B (more content not included)... Normal [facility] Emergency Department Summary on 07-04-2024 Emergency Department Summary [facility] Medical Records Department [address] [place] [address] Emergency Department Summary 07/04/24 MR#: [id number] Acct: [id number] Name: MELLY HINKLE Rep #: [id number] : 2000 24 From: Marshall White PCP: Care Physician,No Primary Status:DEP ER Location: ED HPI History of Present Illness Chief Complaint: Headache Informant: patient Narrative Narrative: Intermittent migraine headaches for last week more persistent over the last 2 days. Symptoms on the right side. Photophobia and phonophobia.Denies trauma denies fevers. Using ydvg-lnm-qoixcmd aspirin powder that has caffeine no relief. She had diarrhea 2 weeks ago that resolved. No nausea or vomiting. History of migraines has been in the ER in the past a couple times per patient. No cardiac dysrhythmia history. Prior similar symptoms: Yes PFSH PFSH Medical History Physical exam, pre-employment Neck pain Diarrhea Migraines Fatigue Shoulder pain Home Medications ???Medication ???Instructions ???Recorded ???Last Taken ???Type hydrochlorothiazide 12.5 mg tablet 12.5 mg PO DAILY #30 tabs Unknown Rx Allergy/AdvReac Type Severity Reaction Status Date / Time prednisone Allergy Unknown Verified 05/16/24 13:22 Family History Other Arthritis Cancer Diabetes Hypertension Surgical History History of cholecystectomy Social History Smoking Status: Light Smoker (<10/day) alcohol intake: never ROS ROS ED Constitutional Constitutional ED: Denies chills, fever(s) or sweats ENT ENT ED: Denies sore throat Cardiovascular Cardiovascular: Denies chest pain, leg edema, palpitations or racing heartbeat Respiratory/Chest Respiratory/Chest: Denies cough, dyspnea or dyspnea on exertion Gastrointestinal Gastrointestinal: Denies abdominal pain, diarrhea, nausea or vomiting Genitourinary Genitourinary ED: Denies dysuria, hematuria or urinary frequency Musculoskeletal Musculoskeletal: Denies back pain, extremity pain or neck pain Integumentary Denies rash or wounds Neurologic Neurologic: Reports headache(s); Denies paresthesias or weakness EXAM Physical Exam Const Vital Signs: 07/04/24 09:31 Temperature 97.2 F L Temperature Source Temporal Pulse Rate 91 Respiratory Rate 19 H Blood Pressure 154/87 H Blood Pressure Mean 109 Pulse Ox 99 Oxygen Delivery Method Room Air Positive well nourished and well developed General Appearance ED: well developed and NAD HEENT Reports moist mucous membranes normocephalic and atraumatic Eyes General Eye ED: Yes normal appearance of both eyes Neck full ROM and no meningeal signs Chest Wall Chest: Negative for tenderness Resp normal respiratory effort and normal air movement Effort and Inspection: symmetric chest movement; Negative for respiratory distress Cardio regular rate, regular rhythm and no murmurs Peripheral Pulses: pulses 2+ throughout GI normal to inspection, nondistended, normoactive bowel sounds and non-tender Palpation: Negative for guarding or rebound tenderness present Extremity normal to inspection General Extremety ED: Negative for edema or tenderness General Extremity: Negative for edema Neuro oriented x3, CN's II-XII intact bilaterally and no sensory deficits noted Sensorium / Orientation: awake and alert Skin no rashes or lesions noted and no wounds MDM MDM MDM Narrative Medical decision making narrative: Interventions / MDM: Differential diagnosis: Migraine headache Diagnosis considered but do not suspect: No clinical meningitis My EKG interpretation: N/A Imaging independently reviewed and interpreted by myself: N/A External documents reviewed: N/A Test considered but not ordered:N/A ED course: Nontoxic no focal deficits no meningismal findings. Migraine history. Will use subcu Imitrex and will reevaluate. Reevaluation symptoms resolved. Intermittent headache since he was. Adolescence she has seen pediatric neurologist in the past however did not return. She will be given follow-up with neurology for reevaluation. All questions were answered. Re-evaluation: stable Disposition discussed with patient/family/significan t other: Patient Case discussed with consulting clinician: N/A This note was generated with [employer] dictation software. It may contain incorrect words, spelling, and punctuation that were not noted in checking the note before signing. Discharge Plan Triage Chief Complaint: Headache ED Provider: Marshall Sloan Dx/Rx/DC Orders Clinical Impression: Headache, migraine Instructions: (more content not included)... Normal [facility] Absolute lymphocyte countOrd ered By: Leonel Aquino on 05-16-2024 Lymphocytes Auto (Unsp spec) [#/Vol] 1.65 10*3/uL 0.83-4.51 [facility] Absolute neutrophil countOrd ered By: Leonelhosea Aquino on 05-16-2024 Neutrophils (Bld) [#/Vol] 2.8 10*3/uL 2.0-7.7 [facility] Anion gap in Serum or Plasma Ordered By: Leonel Aquino on 05-16-2024 Anion gap [Moles/Vol] 10 mmol/L 5-15 [facility] Automated lymphocyte count a s percentage of total leukocytesOrdered By: Leonel Aquino on 05-16-2024 Lymphocytes/100 WBC Auto (Unsp spec) 32.6 % 19-41 [facility] BUN/creatinine ratioOrdered By: Leonel Aquino on 05-16-2024 Urea nitrogen/Creatinine [Mass ratio] 15.8 mg/mg 10-20 [facility] Basophil percentageOrdered B y: Leonel Aquino on 05-16-2024 Basophils/100 WBC (Bld) 0.4 % 0-1 [facility] Bedside Glucoseon 05-16-2024 FINGER[place]ICK GLU 134 mg/dL High 74-106 [facility] Comment on above: Result Comment: SHANITA BRADSHAW OF PATIENT CARE PER NURSING PROTOCOL Performed By: #### L 501.080 ####[facility] [address] [place], [address] Bilirubin Test strip Ql (U)O rdered By: Leonel Aquino on 05-16-2024 Bilirubin Ql (U) Negative Negative [facility] Bilirubin, totalOrdered By: Leonel Clintono on 05-16-2024 Bilirubin [Mass/Vol] 0.30 mg/dL 0.00-1.30 [facility] CBC W/Diff, Automatedon Absolute Lymph 1.65 X10 3/uL Normal 0.83-4.51 [facility] Comment on above: Performed By: #### L 100.0100, L500.4050 #### [facility] [address] [place], [address] Absolute Neut 2.8 X10 3/uL Normal 2.0-7.7 [facility] Comment on above: Performed By: #### L 100.0100, L500.4050 #### [facility] [address] [place], [address] Basophils/100 WBC (Bld) 0.4 % Normal 0-1 [facility] Comment on above: Performed By: #### L 100.0100, L500.4050 #### [facility] [address] [place], [address] Eosinophils/100 WBC (Bld) 2.4 % Normal 0-5 [facility] Comment on above: Performed By: #### L 100.0100, L500.4050 #### [facility] [address] [place], [address] Erythrocyte distribution width (RBC) [Ratio] 17.2 % High 11.6-14.6 [facility] Comment on above: Performed By: #### L 100.0100, L500.4050 #### [facility] [address] [place], [address] Hematocrit (Bld) [Volume fraction] 36.4 % Low 37-47 [facility] Comment on above: Performed By: #### L 100.0100, L500.4050 #### [facility] [address] [place], [address] Hemoglobin (Bld) [Mass/Vol] 11.5 g/dL Low 12.0-15.0 [facility] Comment on above: Performed By: #### L 100.0100, L500.4050 #### [facility] [address] [place], [address] IG% 0.200 Normal 0.0-0.9 [facility] Comment on above: Result Comment: IG% - Immature Granulocytes (promyelocytes, myelocytes and metamyelocytes) > 1% indicates that a LEFT SHIFT is Present. Performed By: #### L 100.0100, L500.4050 #### [facility] [address] [place], [address] Lymphocytes/100 WBC (Bld) 32.6 % Normal 19-41 [facility] Comment on above: Performed By: #### L 100.0100, L500.4050 #### [facility] [address] [place], [address] MCH (RBC) [Entitic mass] 24.4 pg Low 27.0-32.0 [facility] Comment on above: Performed By: #### L 100.0100, L500.4050 #### [facility] [address] [place], [address] MCHC (RBC) [Mass/Vol] 31.6 g/dL Low 32-36 [facility] Comment on above: Performed By: #### L 100.0100, L500.4050 #### [facility] [address] [place], [address] MCV (RBC) [Entitic vol] 77.1 fL Low 81-99 [facility] Comment on above: Performed By: #### L 100.0100, L500.4050 #### [facility] [address] [place], [address] Monocytes/100 WBC (Bld) 8.7 % Normal 0-10 [facility] Comment on above: Performed By: #### L 100.0100, L500.4050 #### [facility] [address] [place], [address] Neutrophils/100 WBC (Bld) 55.7 % Normal 47-70 [facility] Comment on above: Performed By: #### L 100.0100, L500.4050 #### [facility] [address] [place], [address] Nucleated RBC (Bld) [#/Vol] 0 10*3/uL Normal 0-5 [facility] Comment on above: Performed By: #### L 100.0100, L500.4050 #### [facility] [address] [place], [address] Platelet mean volume (Bld) [Entitic vol] 9.4 fL Normal 6.2-12.0 [facility] Comment on above: Performed By: #### L 100.0100, L500.4050 #### [facility] [address] [place], [address] Platelets (Bld) [#/Vol] 316 10*3/uL Normal 150-450 [facility] Comment on above: Performed By: #### L 100.0100, L500.4050 #### [facility] [address] [place], [address] RBC (Bld) [#/Vol] 4.72 10*6/uL Normal 4.2-5.4 [facility] Comment on above: Performed By: #### L 100.0100, L500.4050 #### [facility] [address] [place], [address] RDW SD 48.3 fl High 35.1-43.9 [facility] Comment on above: Performed By: #### L 100.0100, L500.4050 #### [facility] [address] [place], [address] WBC (Bld) [#/Vol] 5.1 10*3/uL Normal 4.4-11.0 [facility] Comment on above: Performed By: #### L 100.0100, L500.4050 #### [facility] [address] [place], [address] Carbon dioxide, total [Moles /volume] in Central venous bloodOrdered By: Leonel Auqino on 05-16-2024 CO2 [Moles/Vol] 23.2 mmol/L 21.0-32.0 [facility] Chloride assayOrdered By: Netta Aquino on 05-16-2024 Chloride [Moles/Vol] 104 mmol/L 98-108 [facility] Comprehensive Metabolic Prof ilon 05-16-2024 Albumin [Mass/Vol] 4.0 g/dL Normal 3.5-5.0 [facility] Comment on above: Performed By: #### L 100.0100, L500.4050 #### [facility] [address] [place], [address] Albumin/Globulin [Mass ratio] 1.2 {ratio} Normal 0.9-2.4 [facility] Comment on above: Performed By: #### L 100.0100, L500.4050 #### [facility] [address] [place], [address] ALK PHOS 69 U/L Normal 35-104 [facility] Comment on above: Performed By: #### L 100.0100, L500.4050 #### [facility] [address] [place], [address] ALT [Catalytic activity/Vol] 22 U/L Normal <=34 [facility] Comment on above: Performed By: #### L 100.0100, L500.4050 #### [facility] [address] [place], [address] AST [Catalytic activity/Vol] 20 U/L Normal <=31 [facility] Comment on above: Performed By: #### L 100.0100, L500.4050 #### [facility] [address] [place], [address] Bilirubin [Mass/Vol] 0.30 mg/dL Normal 0.00-1.30 [facility] Comment on above: Performed By: #### L 100.0100, L500.4050 #### [facility] [address] [place], [address] BUN/CRE 15.8 RATIO Normal 10-20 [facility] Comment on above: Performed By: #### L 100.0100, L500.4050 #### [facility] [address] [place], [address] Calcium [Mass/Vol] 9.4 mg/dL Normal 7.6-11.0 [facility] Comment on above: Performed By: #### L 100.0100, L500.4050 #### [facility] [address] [place], [address] Chloride [Moles/Vol] 104 mmol/L Normal 98-108 [facility] Comment on above: Performed By: #### L 100.0100, L500.4050 #### [facility] [address] [place], [address] CO2 [Moles/Vol] 23.2 mmol/L Normal 21.0-32.0 [facility] Comment on above: Performed By: #### L 100.0100, L500.4050 #### [facility] [address] [place], [address] Creatinine [Mass/Vol] 0.77 mg/dL Normal 0.70-1.20 [facility] Comment on above: Performed By: #### L 100.0100, L500.4050 #### [facility] [address] [place], [address] ECRCL 146.45 ml/min Normal 50-250 [facility] Comment on above: Performed By: #### L 100.0100, L500.4050 #### [facility] [address] [place], [address] GAP 10 Normal 5-15 [facility] Comment on above: Performed By: #### L 100.0100, L500.4050 #### [facility] [address] [place], [address] GFR/1.73 sq M.predicted among non-blacks MDRD (S/P/Bld) [Vol rate/Area] 109 mL/min/{1.73_m2} Normal >60 [facility] Comment on above: Result Comment: mL/m in/1.73m2 CKD-EPI Creatinine Equation (2020) Performed By: #### L 100.0100, L500.4050 #### [facility] [address] [place], [address] Globulin (S) [Mass/Vol] 3.4 g/dL Normal 2.2-4.2 [facility] Comment on above: Performed By: #### L 100.0100, L500.4050 #### [facility] [address] [place], [address] Glucose [Mass/Vol] 127 mg/dL High 70-99 [facility] Comment on above: Performed By: #### L 100.0100, L500.4050 #### [facility] [address] [place], [address] Potassium [Moles/Vol] 4.1 mmol/L Normal 3.3-5.1 [facility] Comment on above: Performed By: #### L 100.0100, L500.4050 #### [facility] [address] [place], [address] Sodium [Moles/Vol] 137 mmol/L Normal 133-145 [facility] Comment on above: Performed By: #### L 100.0100, L500.4050 #### [facility] [address] [place], [address] T PROT 7.5 g/dL Normal 5.9-8.4 [facility] Comment on above: Performed By: #### L 100.0100, L500.4050 #### [facility] [address] [place], [address] Urea nitrogen [Mass/Vol] 12 mg/dL Normal 4-19 [facility] Comment on above: Performed By: #### L 100.0100, L500.4050 #### [facility] [address] [place], [address] Emergency Department Summary on 05-16-2024 Emergency Department Summary [facility] Medical Records Department [address] [place] [address] Emergency Department Summary 05/16/24 MR#: [id number] Acct: [id number] Name: MELLY HINKLE Rep #: [id number] : 2000 From: Leonel Aquino MD PCP: Care Physician,No Primary Status:REG ER Location: ED HPI History of Present Illness Chief Complaint: Nausea/Vomiting Detail of Chief Complaint: Chronic nausea with intermittent vomiting and abdominal pain as well as umb Informant: patient Onset/Context/Timing Onset: Weeks Context: Gradual Onset Timing: Intermittent and Waxes and wanes Quality: Nausea and vomiting, umbilical pain, umbilical rash, polyuria, polydipsia a Location: GI and endocrine Current Severity: Mild Maximum Severity: Moderate Worsened by: Patient states if she lays on her abdomen the pain is worse Relieved by: Nothing Associated Symptoms Associated Symptoms: Patient does endorse daily marijuana use Narrative Narrative: Patient is a 24-year-old woman. She is on no medications. She has not seen a doctor in some time. She has a BMI of 53.4. She presents with polyuria, polydipsia and nocturia. There is a family history of diabetes. She is never been diagnosed with diabetes. She denies fever, chills night sweats. She denies double vision blurred vision. She does endorse dry mouth. She denies sore throat. Denies rhinorrhea, congestion postnasal drainage. She denies cardiac or respiratory symptoms. She denies dyspnea on exertion, orthopnea or PND. The abdominal pain is generalized. The pain is worse when she lies on her abdomen. She also has a rash involving her umbilicus. She states she has noticed some bleeding at times. She has no history of hernia. She denies hematuria or dysuria. She denies vaginal rash or discharge. She denies skin lesions. Prior similar symptoms: No Recent Illness/Hospitalization: No PFSH [facility] Medical History Physical exam, pre-employment Neck pain Diarrhea Migraines Fatigue Shoulder pain Home Medications ???Medication ???Instructions ???Recorded ???Last Taken ???Type hydrochlorothiazide 12.5 mg tablet 12.5 mg PO DAILY #30 tabs Unknown Rx Allergy/AdvReac Type Severity Reaction Status Date / Time prednisone Allergy Unknown Verified 05/16/24 13:22 Family History Other Arthritis Cancer Diabetes Hypertension Surgical History History of cholecystectomy Social History Smoking Status: Light Smoker (<10/day) alcohol intake: never ROS ROS ED Constitutional Constitutional ED: Denies chills, fever(s), subjective, sweats or weight loss Eyes Eyes: Denies blurry vision, change in vision or diplopia ENT ENT ED: Denies ear pain, rhinorrhea or sore throat Cardiovascular Cardiovascular: Denies chest pain, orthopnea, palpitations, paroxysmal nocturnal dyspnea or racing heartbeat Respiratory/Chest Respiratory/Chest: Denies cough, dyspnea, dyspnea on exertion, orthopnea or paroxysmal nocturnal dyspnea Gastrointestinal Gastrointestinal: Reports abdominal pain, nausea and vomiting; Denies constipation, diarrhea or melena Genitourinary Genitourinary ED: Reports urinary frequency; Denies dysuria or hematuria Musculoskeletal Musculoskeletal: Denies arthralgias, back pain or myalgias Integumentary Reports rash Neurologic Neurologic: Reports weakness; Denies headache(s) or paresthesias Psychiatric Psychiatric: Denies anxiety or depression Endocrine Endocrinology: Reports polydipsia and polyuria; Denies cold intolerance or heat intolerance Hematologic/Lymphatic Hematologic/Lymphatic: Reports systems reviewed and no addt'l complaints, except as documented Allergic/Immunologic Allergic/Immunologic ED: Denies mouth swelling or tongue swelling EXAM Physical Exam Const Vital Signs: 05/16/24 13:22 05/16/24 13:23 05/16/24 15:20 Temperature 98.2 F 98.2 F 98 F Temperature Source Oral Oral Temporal Pulse Rate 95 95 95 Respiratory Rate 20 H 20 H 16 Blood Pressure 178/100 H 178/100 H 157/109 H Blood Pressure Mean 126 126 125 Pulse Ox 100 100 97 Oxygen Delivery Method Room Air Room Air Room Air Positive well nourished and well developed Constitutional Narrative: BMI is 53.4. Vital signs are noted and blood pressure is elevated. General Appearance ED: well developed HEENT Reports moist mucous membranes HEENT Narrative: Head is atraumatic normocephalic. Ears normal. Nares patent. There is no discharge. Posterior pharynx is normal Eyes PERRL and EOMs intact bilaterally General Eye ED: Negative for pale conjunctiva or scleral icterus Neck no l (more content not included)... Normal [facility] Eosinophil percentageOrdered By: Leonel Aquino on 05-16-2024 Eosinophils/100 WBC (Bld) 2.4 % 0-5 [facility] Epithelial cells.squamous LM Ql (Urine sed)Ordered By: Leonel Aquino on 05-16-2024 Epithelial cells.squamous LM.HPF (Urine sed) [#/Area] 0 /[HPF] 5-10 [facility] Erythrocyte distribution wid th (RBC) [Ratio]Ordered By: Leonel Aquino on 05-16-2024 Erythrocyte distribution width (RBC) [Entitic vol] 48.3 fL High 35.1-43.9 [facility] Erythrocyte distribution wid th ratioOrdered By: Leonelhosea Aquino on 05-16-2024 Erythrocyte distribution width (RBC) [Ratio] 17.2 % High 11.6-14.6 [facility] Erythrocyte distribution wid th standard deviationOrdered By: Leonel Aquino on 05-16-2024 Erythrocyte distribution width (RBC) [Ratio] 48.3 fl High 35.1-43.9 [facility] Estimation of creatinine lauren aranceOrdered By: Leonel Aquino on 05-16-2024 Estimated Creatinine Clearance Calc 146.45 ml/min 50-250 [facility] GFR/1.73 sq M.predicted remy g non-blacks MDRD (S/P/Bld) [Vol rate/Area]Ordered By: Leonel Aquino on 05-16-2024 Estimated GFR (MDRD) Non-Af Amer 109 >60 [facility] Comment on above: mL/min/1.73m2 CKD-EP I Creatinine Equation (2020) Glomerular filtration rate ( GFR) estimation/1.73 sq m using serum, plasma, or whole bOrdered By: Leonel Aquino on 05-16-2024 GFR/1.73 sq M.predicted among non-blacks MDRD (S/P/Bld) [Vol rate/Area] 109 mL/min/{1.73_m2} >60 [facility] Comment on above: mL/min/1.73m2 CKD-EP I Creatinine Equation (2020) Glucose Ql (U)Ordered By: Netta Aquino on 05-16-2024 Urine Glucose (UA) Normal mg/dl Normal [facility] Glucose measurement at bedsi deOrdered By: Leonel Aquino on 05-16-2024 Bedside Glucose (Misc Panel) 134 mg/dL High 74-106 [facility] Comment on above: MANAGEMENT OF PATIEN T CARE PER NURSING PROTOCOL Glucose [Mass/Vol] 134 mg/dL High 74-106 [facility] Comment on above: MANAGEMENT OF PATIEN T CARE PER NURSING PROTOCOL Hematocrit Auto (Bld) [Volum e fraction]Ordered By: Leonel Aquino on 05-16-2024 Hematocrit (Bld) [Volume fraction] 36.4 % Low 37-47 [facility] Hemoglobin measurementOrdere d By: Leonel Aquino on 05-16-2024 Hemoglobin (Bld) [Mass/Vol] 11.5 g/dL Low 12.0-15.0 [facility] Immature granulocytes/100 WB C Auto (Bld)Ordered By: Leonel Aquino on 05-16-2024 Immature granulocytes/100 WBC (Bld) 0.200 % 0.0-0.9 [facility] Comment on above: IG% - Immature Granu locytes (promyelocytes, myelocytes and metamyelocytes) > 1% indicates that a LEFT SHIFT is Present. Ketones Test strip Ql (U)Ord ered By: Leonel Aquino on 05-16-2024 Ketones Ql (U) 150 mg/dl Abnormal Negative [facility] Comment on above: CRITICAL VALUE *H Laboratory - Chemistry and C hemistry - challengeOrdered By: Leonel Aquino on 05-16-2024 AST [Catalytic activity/Vol] 20 U/L <32 [facility] Lymphocytes Auto (Unsp spec) [#/Vol]Ordered By: Leonel Aquino on 05-16-2024 Lymphocytes (Bld) [#/Vol] 1.65 10*3/uL 0.83-4.51 [facility] Lymphocytes/100 WBC Auto (Un sp spec)Ordered By: Leonel Aquino on 05-16-2024 Lymphocytes/100 WBC (Bld) 32.6 % 19-41 [facility] MCV (mean corpuscular volume ) determinationOrdered By: Leonel Aquino on 05-16-2024 MCV (RBC) [Entitic vol] 77.1 fL Low 81-99 [facility] Mean corpuscular hemoglobin (MCH) determinationOrdered By: Leonel Aquino on 05-16-2024 MCH (RBC) [Entitic mass] 24.4 pg Low 27.0-32.0 [facility] Mean corpuscular hemoglobin concentration (MCHC) determinationOrdered By: Leonel Aquino on 05-16-2024 MCHC (RBC) [Mass/Vol] 31.6 g/dL Low 32-36 [facility] Mean platelet volume determi nationOrdered By: Leonel Aquino on 05-16-2024 Platelet mean volume (Bld) [Entitic vol] 9.4 fL 6.2-12.0 [facility] Microscopic analysis of urin e for red blood cells (RBC)Ordered By: Leonel Aquino on 05-16-2024 Microscopic analysis of urine for red blood cells (RBC) 0-5 SEEN /hpf 0-5 [facility] Urine RBC 0-5 SEEN /hpf 0-5 [facility] Monocyte percentageOrdered B y: Leonel Aquino on 05-16-2024 Monocytes/100 WBC (Bld) 8.7 % 0-10 [facility] Mucus LM Ql (Urine sed)Order ed By: Leonel Aquino on 05-16-2024 Mucus Ql (Urine sed) 0 SEEN /hpf [facility] Neutrophil percentageOrdered By: Leonel Aquino on 05-16-2024 Neutrophils/100 WBC (Bld) 55.7 % 47-70 [facility] Nitrite Test strip Ql (U)Ord ered By: Leonel Aquino on 05-16-2024 Nitrite Ql (U) Negative Negative [facility] Nucleated red blood cell per centageOrdered By: Leonel Aquino on 05-16-2024 Nucleated RBC/100 WBC (Bld) [Ratio] 0 % 0-5 [facility] Platelet countOrdered By: Netta Aquino on 05-16-2024 Platelets (Bld) [#/Vol] 316 10*3/uL 150-450 [facility] Potassium (Unsp spec) [Mass/ Vol]Ordered By: Leonel Aquino on 05-16-2024 Potassium [Moles/Vol] 4.1 mmol/L 3.3-5.1 [facility] Potassium measurement (mass/ volume)Ordered By: Leonel Aquino on 05-16-2024 Potassium (Unsp spec) [Mass/Vol] 4.1 mmol/L 3.3-5.1 [facility] Protein Test strip Ql (U)Ord ered By: Leonel Aquino on 05-16-2024 Protein Ql (U) 30 mg/dl High Negative [facility] RBC Auto (Bld) [#/Vol]Ordere d By: Leonel Aquino on 05-16-2024 RBC (Bld) [#/Vol] 4.72 10*6/uL 4.2-5.4 [facility] Serum creatinine measurement (mass/volume)Ordered By: Leonel Aquino on 05-16-2024 Creatinine [Mass/Vol] 0.77 mg/dL 0.70-1.20 [facility] Serum globulin measurementOr dered By: Leonel Aquino on 05-16-2024 Globulin (S) [Mass/Vol] 3.4 g/dL 2.2-4.2 [facility] Serum glucose measurement (m ass/volume)Ordered By: Leonel Aquino on 05-16-2024 Glucose [Mass/Vol] 127 mg/dL High 70-99 [facility] Serum or plasma alanine padilla otransferase (ALT) measurementOrdered By: Leonel Aquino on 05-16-2024 ALT [Catalytic activity/Vol] 22 U/L <35 [facility] Serum or plasma albumin neema urement (mass/volume)Ordered By: Leonel Aquino on 05-16-2024 Albumin [Mass/Vol] 4.0 g/dL 3.5-5.0 [facility] Serum or plasma albumin/glob ulin mass ratioOrdered By: Leonelhosea Aquino 05-16-2024 Albumin/Globulin [Mass ratio] 1.2 {ratio} 0.9-2.4 [facility] Serum or plasma alkaline pablo sphatase measurementOrdered By: Leonelhosea Aquino on 05-16-2024 ALP [Catalytic activity/Vol] 69 U/L 35-104 [facility] Serum or plasma calcium neema urement (mass/volume)Ordered By: Leonel Aquino on 05-16-2024 Calcium [Mass/Vol] 9.4 mg/dL 7.6-11.0 [facility] Serum or plasma urea nitroge n measurement (mass/volume)Ordered By: Leonel Aquino on 05-16-2024 Urea nitrogen [Mass/Vol] 12 mg/dL 4-19 [facility] Sodium levelOrdered By: Leonel Aquino on 05-16-2024 Sodium [Moles/Vol] 137 mmol/L 133-145 [facility] Squamous epithelial cells de tection in urine sediment by light microscopyOrdered By: Leonelhosea Aquino on 05-16-2024 Epithelial cells.squamous LM Ql (Urine sed) 0-5 SEEN /hpf 5-10 [facility] Total proteinOrdered By: Leonelhosea Aquino on 05-16-2024 Protein [Mass/Vol] 7.5 g/dL 5.9-8.4 [facility] Urinalysis, Completeon 05-16 RBC 0-5 SEEN Normal 0-5 [facility] Comment on above: Order Comment: CRITI JUANITA VALUE CALLED TO [facility]05/16/24 1553 [place].RESULTS READ BACK BY SAME.CLEAN CATCH Performed By: #### L 400.0001 ####[facility] [address] [facility] [address] WBC 0-5 SEEN Normal 0-5 [facility] Comment on above: Order Comment: CRITI JUANITA VALUE CALLED TO [facility]05/16/24 1553 [place].RESULTS READ BACK BY SAME.CLEAN CATCH Performed By: #### L 400.0001 ####[facility] [address] [place], [address] BACTERIA 1+ /hpf Normal None Seen [facility] Comment on above: Order Comment: CRITI JUANITA VALUE CALLED TO [facility]05/16/24 1553 [place].RESULTS READ BACK BY SAME.CLEAN CATCH Performed By: #### L 400.0001 ####[facility] [address] [place], [place], [address] EPI,SQUAMOUS 0-5 SEEN Normal 5-10 [facility] Comment on above: Order Comment: CRITI JUANITA VALUE CALLED TO [id number]/04/25 1553 [place].RESULTS READ BACK BY SAME.CLEAN CATCH Performed By: #### L 400.0001 ####[facility] [address] [place], [place], [address] Mucus Ql (Urine sed) 0 SEEN Normal [facility] Comment on above: Order Comment: CRITI JUANITA VALUE CALLED TO [facility]05/16/24 1553 [place].RESULTS READ BACK BY SAME.CLEAN CATCH Performed By: #### L 400.0001 ####[facility] [address] [place], [place], [address] Urine blood detectionOrdered By: Leonel Aquino on 05-16-2024 Urine Occult Blood Negative Negative [facility] Urine clarityOrdered By: Leonel Aquino on 05-16-2024 Clarity (U) Clear Clear [facility] Urine color determinationOrd ered By: Leonel Aqunio on 05-16-2024 Color (U) Yellow Yellow [facility] Urine glucose detectionOrder ed By: Leonel Auqino on 05-16-2024 Glucose Ql (U) Normal mg/dl Normal [facility] Urine leukocyte esterase det ection by dipstickOrdered By: Leonel Aquino on 05-16-2024 Leukocyte esterase Test strip Ql (U) Negative Negative [facility] Urine pHOrdered By: Leonel jc on 05-16-2024 pH (U) 6.0 [pH] 5.0 - 8.0 [facility] Urine sediment bacteria coun t by microscopy (number/high power field)Ordered By: Leonel Aquino on 05-16-2024 Bacteria LM.HPF (Urine sed) [#/Area] 1 /[HPF] None Seen [facility] Urine specific gravity measu rementOrdered By: Leonel Aquino on 05-16-2024 Specific gravity (U) [Rel density] 1.020 1.002-1.030 [facility] Urine urobilinogen measureme ntOrdered By: Leonel Clintono on 05-16-2024 Urobilinogen Ql (U) 1 mg/dl High Normal [facility] Urobilinogen Ql (U)Ordered B y: Leonelhosea Clintono on 05-16-2024 Urobilinogen (U) [Mass/Vol] 1 mg/dL High Normal [facility] White blood cell (WBC) count Ordered By: Leonel Clintono on 05-16-2024 WBC (Bld) [#/Vol] 5.1 10*3/uL 4.4-11.0 [facility] White blood cell countOrdere d By: Leonelhosea Aquino on 05-16-2024 Urine WBC 0-5 SEEN /hpf 0-5 [facility] White blood cell count 0-5 SEEN /hpf 0-5 [facility] Emergency Department Summary on 01-15-2024 Emergency Department Summary [facility] Medical Records Department [address] [place] [address] Emergency Department Summary 01/15/24 MR#: [id number] Acct: [id number] Name: MELLY HINKLE Rep #: [id number] : 2000 23 From: Monique Ferro DO PCP: Care Physician,No Primary Status:[facility] ER Location: ED HPI History of Present Illness Chief Complaint: Laceration Informant: patient Narrative Narrative: Patient is a 23-year-old female presenting for injuries after mechanical fall. She tripped on gravel. She landed hard on her right knee sustaining a laceration through her pants. She also scraped her left fourth finger. Bleeding is controlled of the finger. She complained of pain at her knee at the site of the laceration. She states she did hit her face but denies any loss of consciousness. She is on any blood thinners denies any issues with bleeding. Denies any difficulty opening or closing her jaw. Denies any associate numbness or tingling. No other complaints or concerns reported at this time Tetanus Immunization: Unknown [facility] Medical History Physical exam, pre-employment Neck pain Diarrhea Migraines Fatigue Shoulder pain Home Medications ???Medication ???Instructions ???Recorded ???Last Taken ???Type NK 01/06/22 Unknown History Allergy/AdvReac Type Severity Reaction Status Date / Time prednisone Allergy Unknown Verified 01/15/24 15:16 Family History Other Arthritis Cancer Diabetes Hypertension Surgical History History of cholecystectomy Social History Smoking Status: Light Smoker (<10/day) alcohol intake: never ROS ROS ED Constitutional Constitutional ED: Denies chills or fever(s) Eyes Eyes: Denies change in vision ENT ENT ED: Reports other Details: Denies dental pain ; Denies ear pain or sore throat Cardiovascular Cardiovascular: Denies chest pain Respiratory/Chest Respiratory/Chest: Denies cough or dyspnea Gastrointestinal Gastrointestinal: Denies abdominal pain or vomiting Musculoskeletal Musculoskeletal: Reports other Details: Right knee pain, left ring finger pain Integumentary Reports Abrasions and other Details: Laceration to the right knee Neurologic Neurologic: Denies headache(s), paresthesias or weakness Psychiatric Psychiatric: Reports anxiety Hematologic/Lymphatic Hematologic/Lymphatic: Denies easy bleeding or easy bruising EXAM Physical Exam Const Vital Signs: 01/15/24 15:16 Temperature 97.7 F L Temperature Source Oral Pulse Rate 92 Respiratory Rate 16 Blood Pressure 190/91 H Blood Pressure Mean 124 Pulse Ox 99 Oxygen Delivery Method Room Air Positive well nourished and well developed General Appearance ED: well developed and NAD HEENT Reports TM's clear HEENT Narrative: No cephalohematoma appreciated atraumatic Nose: Negative for septum abnormal Tympanic Membrane ED: Yes TM's clear Eyes PERRL and EOMs intact bilaterally Neck full ROM General: Negative for tenderness Chest Wall inspection of chest normal and palpation of chest normal Resp normal respiratory effort and clear to auscultation bilaterally Cardio regular rhythm Cardio Narrative: 2+ radial DP pulses Rate: regular rate Extremity normal to inspection and full ROM Extremity Narrative: Normal extensor mechanism of the right lower extremity. Normal range of motion of the right knee. No joint effusion appreciated. No gross bony tenderness or deformity appreciated. Normal range of motion of the left fingers and hand. Normal flexion extension specifically of the left ring finger. General Extremety ED: Negative for deformity or edema General Extremity: Negative for deformity or edema Neuro oriented x3, moves all extremities, no focal motor deficits and no sensory deficits noted Mckay Coma Scale: document GCS findings Spontaneous Obeys Commands Oriented 15 Sensorium / Orientation: alert Psych mental status grossly normal Mood Affect: anxious Skin Skin Narrative: 3 mm superficial abrasion with no active bleeding of the palmar aspect of the left fourth finger over the PIP. There is a 3 cm full-thickness linear laceration just inferior to the right knee with some mild bleeding. No gaping at this time but the wound is easily separate with traction. PROC Procedures Lacerations right knee : Length: 1.18 in Depth: Sub Q Shape: Linear Prep: Chlorhexadine Laceration repair: Debrideded, Lidocaine with epi, Skin sutures and Subcutaneous sutures (1 x 4-0 vicryl) Irrigated (ml): 250 Number of Sutures/Mobile: 3 Suture Information: Ethilon (more content not included)... Normal [facility] Ankle min 3 Viewson 11-20-19 Ankle min 3 Views [facility] Imaging Services [address] [place] [address] Ankle min 3 Views MR#: [id number] Acct: [id number] Name: MELLY HINKLE Rep #: [id number] : 2000 F 23 From: Dianne bunch MD PCP: Care Physician,No Primary Status: DEP ER Study: Ankle min 3 Views Date of Exam: 11/20/23 Exam# [id number] Ordering Dr: Larry Zarco DO [id number] HISTORY: injury. TECHNIQUE: XR Ankle Min 3 Views. COMPARISON: 08/12/2020. FINDINGS: BONES : Small fragment at the medial malleolus. Mineralization unremarkable. JOINTS: Asymmetric widening of the ankle mortise laterally. Joint effusion. SOFT TISSUES: Moderate soft tissue swelling. RAD/Ankle min 3 Views IMPRESSION: Mild subluxation of the right ankle with a small fracture fragment at the medial malleolus. Electronically Signed: Dianne Cardona MD at 8:06 EDT , CC: Dr. Larry Zarco, ; No Primary Care Physician Space Control Supervisor: Signed Normal [facility] Emergency Department Summary on 11-20-2023 Emergency Department Summary [facility] Medical Records Department [address] [place] [address] Emergency Department Summary 11/20/23 MR#: [id number] Acct: [id number] Name: MELLY HINKLE Rep #: [id number] : 2000 23 From: Larry Zarco DO PCP: Care Physician,No Primary Status:DEP ER Location: ED HPI History of Present Illness Chief Complaint: Lower Extremity Injury Detail of Chief Complaint: Injury to right ankle and left foot Informant: patient Narrative Narrative: Patient presents to the emergency department after she slipped and fell last evening while letting the dog out and injuring her right ankle and left foot. Patient had a hard time sleeping last night. Presents for evaluation. Denies any other injuries. [facility] Medical History Diarrhea Fatigue Migraines Neck pain Physical exam, pre-employment Shoulder pain Home Medications ???Medication ???Instructions ???Recorded ???Last Taken ???Type NK 01/06/22 Unknown History Allergy/AdvReac Type Severity Reaction Status Date / Time prednisone Allergy Unknown Verified 11/20/23 04:50 Family History Other Arthritis Cancer Diabetes Hypertension Surgical History History of cholecystectomy Social History Smoking Status: Current some day smoker tobacco type: cigarettes and smokeless tobacco alcohol intake: never ROS ROS ED Review of Systems ROS Unobtainable: other Constitutional Constitutional ED: Reports lethargy; Denies chills, fever(s), sweats or weight loss Eyes Eyes: Denies blurry vision, change in vision or diplopia ENT ENT ED: Denies rhinorrhea or sore throat Cardiovascular Cardiovascular: Denies chest pain, orthopnea or racing heartbeat Respiratory/Chest Respiratory/Chest: Denies cough, dyspnea, dyspnea on exertion, orthopnea or sputum Gastrointestinal Gastrointestinal: Denies abdominal pain, diarrhea, nausea or vomiting Genitourinary Genitourinary ED: Denies dysuria, hematuria or urinary frequency Musculoskeletal Musculoskeletal: Reports other Details: Injury to right ankle and left foot ; Denies arthralgias, back pain, myalgias or neck pain Integumentary Denies abscess, Abrasions or rash Neurologic Neurologic: Denies headache(s) or weakness Psychiatric Psychiatric: Denies anxiety, depression or suicidal thoughts Endocrine Endocrinology: Denies polydipsia, polyphagia or polyuria Hematologic/Lymphatic Hematologic/Lymphatic: Denies easy bleeding, easy bruising or lymphadenopathy Allergic/Immunologic Allergic/Immunologic ED: Denies mouth swelling, tongue swelling or urticaria EXAM Physical Exam Const Vital Signs: 11/20/23 04:50 Temperature 97.8 F Temperature Source Temporal Pulse Rate 96 Respiratory Rate 16 Blood Pressure 138/80 H Blood Pressure Mean 99 Pulse Ox 98 Positive well nourished and well developed General Appearance ED: well developed and NAD HEENT Reports TM's clear and moist mucous membranes normocephalic and atraumatic; Negative for trauma or tenderness Tympanic Membrane ED: Yes TM's clear Eyes PERRL and EOMs intact bilaterally General Eye ED: Negative for pale conjunctiva or scleral icterus Neck no lymphadenopathy, supple and no JVD General: Negative for tenderness Chest Wall inspection of chest normal and palpation of chest normal Chest: Negative for tenderness Resp normal respiratory effort and clear to auscultation bilaterally Effort and Inspection: Negative for respiratory distress or pain with movement Auscultation: Negative for rhonchi, wheezes or diminished lung sounds Cardio regular rate, regular rhythm, S1 normal heart sound, S2 normal heart sound and no murmurs Peripheral Pulses: pulses 2+ throughout GI normal to inspection, nondistended, normoactive bowel sounds, soft to palpation, non-tender, non- distended and no masses Back/Spine no CVA tenderness and no thoracic nor lumbar tenderness Extremity Extremity Narrative: Right ankle-patient has diffuse soft tissue swelling with tenderness palpation over the lateral malleolus and anterior aspect of the ankle. No pain at the base of the fifth metatarsal. No pain at the proximal fibular head. Neurovascular intact distally. Left foot-patient has tenderness palpation over the proximal foot dorsum. No tenderness over the base of the fifth metatarsal. No tenderness about the medial or lateral malleolus. Neurovascularly intact. General Extremety ED: Negative for edema General Extremity: Negative for edema Neuro oriented x3, CN's II-XII intact bilaterally, no sensory deficits noted and gait normal Se (more content not included)... Normal [facility] Foot min 3 Viewson 4 Foot min 3 Views [facility] Imaging Services [address] [place] [address] Foot min 3 Views MR#: [id number] Acct: [id number] Name: MELLY HINKLE Rep #: [id number] : 2000 23 From: Dianne bunch MD PCP: Care Physician,No Primary Status: [facility] ER Study: Foot min 3 Views Date of Exam: 11/20/23 Exam# [id number] Ordering Dr: Larry Zarco DO [id number] HISTORY: injury. TECHNIQUE: XR Foot Min 3 Views. COMPARISON: None. FINDINGS: BONES : No acute fracture identified. Tiny plantar calcaneal spur present. JOINTS: No dislocation. Joint spaces maintained. SOFT TISSUES: Mild soft tissue swelling. RAD/Foot min 3 Views IMPRESSION: No acute fracture or dislocation identified in the left foot. Electronically Signed: Dianne Cardona MD at 8:04 EDT , CC: Dr. Larry Zarco DO; No Primary Care Physician Space Control Supervisor: Signed Normal [facility] CT BRAIN W/O CONTRASTon 08-14 CT BRAIN W/O CONTRAST [address] [address] Patient: TANNA HINKLEYEILANA BunchBruce Phone#: : 2000 Age: 23 Gender: F Pt. Type: ER Account: [id number] Location: 052 Ordering: DR. JOANNE ARAYA Exam Date: 09/02/2023/14:25 Family Phys: Charge Code: [id number] Physician: [facility] Order #: [id number] Dose#: 57.5 PROCEDURE: CT BRAIN WITHOUT CONTRAST COMPARISON: None. INDICATIONS: Headache. TECHNIQUE: CT images were obtained without contrast material. All CT scans at this facility use dose modulation, iterative reconstruction, and/or weight based dosing when appropriate to reduce radiation dose to as low as reasonably achievable. IV CONTRAST: No IV contrast used,0ml TOTAL DOSE: 57.5 CTDIvol(mGy) FINDINGS: CEREBRUM: No edema, hemorrhage, mass, or inappropriate atrophy. CEREBELLUM: No edema, hemorrhage, mass, or inappropriate atrophy. BRAINSTEM: No edema, hemorrhage, mass, or inappropriate atrophy. CSF SPACES: Ventricles, cisterns, and sulci are appropriate for age. No hydrocephalus, subarachnoid hemorrhage, or mass. SKULL: No mass or other significant visible lesion. SINUSES: Limited views demonstrate no significant mucosal thickening or fluid. ORBITS: Limited views are unremarkable. OTHER: Negative. CONCLUSION: 1. No appreciable acute intracranial abnormality. Dictated by: Keiry Arreguin MD on 09/02/2023 at 14:38 Approved by: Keiry Arreguin MD on 09/02/2023 at 14:44 Normal [facility] ----- MELYL STOVER ([id number]) 2000 F Date Time Provider Department 07/12/21 ERICA LOYOLA During your visit today, we recorded the following information about you: Kristy Banuelos LPN 07/12/2021 10:30 AM Signed ----- Message from Erica Loyola APRN.SOLE ROUGHER sent at 07/12/2021 8:17 AM EDT ----- Please inform patient of negative COVID and Influenza. Continue treatment plan at time of discharge. Follow up with PCP. Return with worsening symptoms. Kirsty Banuelos LPN 07/12/2021 10:32 AM Signed Patient notified. Verbalized understanding. Allergies As of Date: 07/12/2021 Noted Allergy Reaction PREDNISONE 10/19/2013 1 - Mental Status Change Date Reviewed: 07/11/2021 Reviewed by: Linsey Soares APRN.SOLE ROUGHER - Fully Assessed Reason for Visit: Results [95] Prescriptions as of 07/12/2021 - medroxyPROGESTERone (DEPO-PROVERA) 150 mg/mL Inject 1 mL intramuscularly every 12 weeks. - Omeprazole 20 mg TbEC Take 20 mg by mouth once daily. - sertraline (ZOLOFT) 25 mg tablet Take 25 mg by mouth once daily. from [facility] psych - methylphenidate ER (CONCERTA) 54 mg CR tablet Take 54 mg by mouth once daily. - methylphenidate LA (RITALIN LA) 10 mg 24 hr capsule Take 10 mg by mouth once daily. - busPIRone 5 mg tablet Takes 10 mg in the Am and 10 mg at night - From [facility] psych - cloNIDine 0.1 mg tablet 0.1 mg. Takes 0.1 mg at bedtime - from [facility] psych - ziprasidone (GEODON) 20 mg capsule 20 mg. Takes 40 mg in the morning and 60 mg in the PM - from [facility] Problem List As Of Date 07/12/2021 Noted Resolved ADHD (attention deficit hyperactivity disorder)*07/26/2011 ODD (oppositional defiant disorder) [F91.3] 07/26/2011 Right upper quadrant pain [R10.11] 11/02/2013 05/24/2015 Irregular menstrual cycle [N92.6] 05/24/2015 Acne vulgaris [L70.0] 05/24/2015 Suicide attempt (HCC) [T14.91XA] 06/17/2015 Encounter Status:Closed by KRISTY BANUELOS on 07/12/21 [facility] CNOVon 07-11-2021 CNOV Office Visit (WSTR ) ----- MELLY STOVER ([id number]) 2000 F Date Time Provider Department 07/11/21 11:15 AM LINSEY SOARES [facility] During your visit today, we recorded the following information about you: Temperature Pulse Respiration Blood pressure 99.4 degrees 100/minute 21/minute 126/84 Weight Last Period 153.5 kg 06/30/21 Linsey Soares APRN.[facility] 07/11/2021 12:13 PM Signed Subjective HPI Melly Stover is a 21 year old female who presents with sore throat, runny nose, headache for the past 2 days. She has been taking ibuprofen. She denies known sick contacts. Her symptoms started after seeing the dentist. She has not had a fever. She took a home COVID test which was negative. Review of Systems Constitutional: Negative for chills and fever. HENT: Positive for congestion and sore throat. Negative for ear pain. Respiratory: Positive for cough. Cardiovascular: Negative. Neurological: Positive for headaches. BP 126/84 Pulse 100 Temp 37.4 ?C (99.4 ?F) Resp 21 Wt (!) 153.5 kg (338 lb 6.4 oz) LMP 06/30/2021 SpO2 97% PAST MEDICAL HISTORY Diagnosis Date - ADHD (attention deficit hyperactivity disorder) - ADHD (attention deficit hyperactivity disorder) 07/26/2011 - Bipolar 1 disorder (HCC) - Gallbladder sludge 10/25/13 - NEGATIVE HISTORY OF 07/24/11 normal color vision - ODD (oppositional defiant disorder) - RUQ pain 10/25/13 PAST SURGICAL HISTORY Procedure Laterality Date - LAPAROSCOPY SURG CHOLECYSTECTOMY 10/25/13 ALLERGIES Prednisone MEDICATIONS medroxyPROGESTERone (DEPO-PROVERA) 150 mg/mL Inject 1 mL intramuscularly every 12 weeks. Omeprazole 20 mg TbEC Take 20 mg by mouth once daily. sertraline (ZOLOFT) 25 mg tablet Take 25 mg by mouth once daily. from [facility] methylphenidate ER (CONCERTA) 54 mg CR tablet Take 54 mg by mouth once daily. methylphenidate LA (RITALIN LA) 10 mg 24 hr capsule Take 10 mg by mouth once daily. busPIRone 5 mg tablet Takes 10 mg in the Am and 10 mg at night - From [facility] cloNIDine 0.1 mg tablet 0.1 mg. Takes 0.1 mg at bedtime - from [facility] ziprasidone (GEODON) 20 mg capsule 20 mg. Takes 40 mg in the morning and 60 mg in the PM - from [facility] FAMILY HISTORY Problem Relation Age of Onset - other (heart problems) Paternal Grandfather [place] in 70's - Hypertension Maternal Grandfather - Colon Cancer Maternal Grandfather - other (afib) Maternal Grandfather - Diabetes Maternal Grandmother Social History Tobacco Use - Smoking status: Current Every Day Smoker - Smokeless tobacco: Never Used - Tobacco comment: mom and dad smokes outside and inside Vaping Use - Vaping Use: Never used Substance Use Topics - Alcohol use: No - Drug use: No Objective Physical Exam Vitals and nursing note reviewed. Constitutional: Appearance: She is obese. HENT: Right Ear: Tympanic membrane, ear canal and external ear normal. Left Ear: Tympanic membrane, ear canal and external ear normal. Nose: Nose normal. Mouth/Throat: Mouth: Mucous membranes are moist. Pharynx: Uvula midline. Posterior oropharyngeal erythema (slight) present. No oropharyngeal exudate. Tonsils: 2+ on the right. 2+ on the left. Cardiovascular: Rate and Rhythm: Normal rate and regular rhythm. Heart sounds: Normal heart sounds. Pulmonary: Effort: Pulmonary effort is normal. No respiratory distress. Breath sounds: Normal breath sounds. No wheezing or rales. Musculoskeletal: Cervical back: Neck supple. Lymphadenopathy: Cervical: No cervical adenopathy. Skin: General: Skin is warm and dry. Findings: No erythema or rash. Neurological: Mental Status: She is alert. ASSESSMENT/PLAN: 1. Sore throat - ICD9: 462, ICD10: J02.9 (primary diagnosis) - suspect viral - Alere Strep Test NEGATIVE, no culture pending - Discussed supportive care treatment with fluids, rest and analgesia. - The patient may also use warm salt water gargles, throat lozenges and/or OTC throat spray as needed. CEPACOL lozenges work well. - STREP A MOLECULAR (POC) 2. Viral URI - ICD9: 465.9, ICD10: J06.9 - Discussed viral etiology and rationale for treatment. - Symptomatic treatment with prn analgesia - Supportive care with fluids and rest - COVID WITH FLUA+B, ROUTINE - Follow-up with your PCP in 3-5 days if symptoms have not improved or sooner if symptoms worsen - Discussed red flags and need for immediate medical evaluation if any occur. - Discussed supportive care treatment with fluids, rest and analgesia. - Discussed expected course of illness TORY Pleitez APRN.CNP 07/11/2021 11:28 AM Signed ASSESSMENT/PLAN: 1. Sore throat - ICD9: 462, ICD10: J02.9 (primary diagnosis) - suspect viral - Alere Strep Test NEGATIVE, no culture pending - Discusse (more content not included)... Normal [facility] STREP A MOLECULAR (POC)on Procedural Control Valid [facility] Strep A (POCT) Negative Negative [facility] Coronavirus 2019on COVID 19 Result HEALTH DATA ADMINISTRATOR Abnormal Negative for COVID19 (SARS CoV2) by PCR. [facility] Comment on above: Result Comment: Posi tive for This test was developed and its performance characteristics determined by [facility]'s [facility] [place]. This test has been authorized by FDA under an Emergency Use Authorization (EUA). This test has been validated in accordance with the FDA's Guidance Document Policy for Diagnostics Testing in Laboratories Certified to Perform High Complexity Testing under CLIA prior to Emergency use Authorization for Coronavirus Disease 2019 during the Public Health Emergency issued on May 13, 2019. COVID19 (SARS This test was developed and its performance characteristics determined by [facility]'s [facility] [place]. This test has been authorized by FDA under an Emergency Use Authorization (EUA). This test has been validated in accordance with the FDA's Guidance Document Policy for Diagnostics Testing in Laboratories Certified to Perform High Complexity Testing under CLIA prior to Emergency use Authorization for Coronavirus Disease 2019 during the Public Health Emergency issued on May 13, 2019. CoV2) by This test was developed and its performance characteristics determined by [facility] [place]. This test has been authorized by FDA under an Emergency Use Authorization (EUA). This test has been validated in accordance with the FDA's Guidance Document Policy for Diagnostics Testing in Laboratories Certified to Perform High Complexity Testing under CLIA prior to Emergency use Authorization for Coronavirus Disease 2019 during the Public Health Emergency issued on May 13, 2019. PCR.(*) This test was developed and its performance characteristics determined by [facility] [place]. This test has been authorized by FDA under an Emergency Use Authorization (EUA). This test has been validated in accordance with the FDA's Guidance Document Policy for Diagnostics Testing in Laboratories Certified to Perform High Complexity Testing under CLIA prior to Emergency use Authorization for Coronavirus Disease 2019 during the Public Health Emergency issued on May 13, 2019. Coronavirus 2019 1 COVID 19 Source HEALTH DATA ADMINISTRATOR Normal [facility] Comment on above: Result Comment: Naso pharyngeal Corrected on 03/15 AT 1307: Previously reported as HEALTH DATA ADMINISTRATOR SWAB Swab Corrected on 03/15 AT 1307: Previously reported as HEALTH DATA ADMINISTRATOR SWAB FLU A and B PANEL NASOPHARYN ALon 05-04-2019 FLUAV Ag Ql (Unsp spec) Negative Normal NEGATIVE [facility] Comment on above: Performed By: #### 3 3535-6 #### [facility] [address] [place] [address] Surgical [employer]rub Tech - [facility] [id number] FLUBV Ag Ql (Unsp spec) Negative Normal NEGATIVE [facility] Comment on above: Performed By: #### 3 3535-6 #### [facility] [address] [place] [address] Surgical [employer]rub Tech - [facility] [id number] RAPID STREP SCREENon 020 GROUP A STREP Negative Normal [facility] Comment on above: Performed By: #### 1 8481-2 #### [facility] [address] [place] [address] Surgical Scrub Tech - [facility] [id number] GROUP CG STREP Negative [facility] Comment on above: Performed By: #### 1 8481-2 #### [facility] [address] [place] [address] Surgical Scrub Tech - Renea ARMENTA [id number] HRAPID TESTING PERFORMED USING MOLECULAR TESTING Normal [facility] Comment on above: Performed By: #### 1 8481-2 #### [facility] [address] [place] [address] Surgical [employer]rub Tech - Renea ARMENTA [id number] RAPID STREP SCREENon 019 GROUP A STREP Negative [facility] Comment on above: Performed By: #### 1 8481-2 #### [facility] [address] [place] [address] Surgical Scrub Tech - Renea ARMENTA [id number] GROUP CG STREP Negative [facility] Comment on above: Performed By: #### 1 8481-2 #### [facility] [address] [place] [address] Surgical Scrub Tech - Renea ARMENTA [id number] HRAPID TESTING PERFORMED USING MOLECULAR TESTING [facility] Comment on above: Performed By: #### 1 8481-2 #### [facility] [address] [facility] [place] [address] Surgical Scrub Tech - Renea ARMENTA [id number] Progress Noteon 01-01-2017 Help Desk Operator Authentication Interface Message Text CHILD PSYCHIATRY OUTPATIENT PROGRESS NOTEDATE OF SERVICE: 01/01/2017 AGE: 16 y.o. 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 12th grade.IEP in place.I interviewed the patient and her mother (Kalpana Herr)REASON FOR VISIT: Medication check. No changes during last visit.SUBJECTIVE: (reported issues and events since last appointment)Prefers to be call CeCeCeCe states my moods have been good. I haven't been blowing up like I used to.I have been less irritable. I am able to talk to people when I am angry.Reports good energy and motivations. Denies anhedonia. Reports sleeping well.Denies SI/HI. Denies Self harmCeCe states my anxiety is in the middle. Today [place] [address] and my anxiety went up. Anxiety can be at school because of testand presentations. I do feel it is has been better and I can control itbetter. Denies feeling restless. Denies aches or pain.Reports focusing well and staying on task. Reports she can fidgety at times butit's not inMom states she is doing pretty good. She is your normal basic teenager youwould expect to have. He moods have been good. She doesn't isolate andparticipates with family.0-10 (10 being severe)Anxiety: DHD: 05/22Moods: 05/22RISK ASSESSMENT:The patient does not endorse any: thoughts of wishing to be or activethoughts about killing her/himself, in the past [30 days, lifetime, since lastvisit]. Patient denies any current SI.Pt denies any suicide attempts, includingaborted attempts, interrupted attempts or preparatory suicidal behaviors likewriting a suicide note or collecting pills, or other in the past [30 days,lifetime, since last visit]. Patient denies any self harm behaviors likecutting, burning or other.Pt endorses the following protective factors against attempting suicide[confucianism, family, social support, engagement in work or education, fear ofdying, future goals].The patient does not endorse any thoughts of wanting to physically harming orkilling someone currently and in the past [30 days, lifetime, since last visit].Patient denies any history of physical violence.Peer/Family Relationship: Lives with my parent, 12 old sister, and 9 y/obrother. Crissy I bicker with my siblings, but otherwise things are good.School Behavior/Grades: Reports doing well academically to start the year.Currently getting A-C's. 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 Reports gettingalong well with co-workers.General Health: good'MEDICAL REVIEW OF SYMPTOMS:Constitutional: Negative for fever and activity change.HENT: Negative for nosebleeds, congestion, rhinorrhea, mouth sores, neck painand neck stiffness.Eyes: No complaints of blurred vision. Wears glasses.Respiratory: Negative for cough and wheezing.Cardiovascular: Negative for chest pain.Gastrointestinal: Negative for constipation and nausea, abdominal pain, diarrheaand constipationGenitourinary : Negative for urinary frequency. Negative of decreased urinevolume and difficulty urinating.Reproductive: No complaints reported at this time.Musculoskeletal: Negative for back pain.Skin: Negative for pallor, rash and wound.Neurological: Denies Headache, dizziness, or weakness. Sleep: Melly states my sleep has been good. Reports falling asleep andsleeping trough the night. Bedtime: 9:00 pm, up at 6:00 am.Appetite: Normal.Exercise: States not a lot of exercise. I might do some exercises by it's notvery often.OBJECTIVE:Vitals: 01/01/17 0959BP: 115/80Pulse: 86Weight: (!) 127.1 kgHeight: 159.4 cmWt Readings from Last 3 Encounters:01/01/17 (!) 127.1 kg (>99 %, Z= 2.62)*09/08/16 (!) 122.8 kg (>99 %, Z= 2.57)*05/25/16 (!) 121.5 kg (>99 %, Z= 2.57) Growth percentiles are based on CDC 2-20 Years data.Ht Readings from Last 3 Encounters:01/01/17 159.4 cm (28 %, Z= -0.57)*09/08/16 158.5 cm (24 %, Z= -0.70)*05/25/16 158.1 cm (23 %, Z= -0.75) Growth percentiles are based on CDC 2-20 Years data.Body mass index is 50.03 kg/(m^2).>99 %ile (Z= 2.55) based on CDC 2-20 Years BMI-for-age data using vitals from01/01/2017.>99 %ile (Z= 2.62) based on CDC 2-20 Years [id number] data using vitals from01/01/2017.28 %ile (Z= -0.57) based on CDC 2-20 Years [id number] data using vitalsfrom 01/01/2017.MENTAL STATUS EXAMINATION:Behavior During Interview: calm and cooperativeAppearance: neat/clean and dressed appropriatelyEye Contact: appropriate and goodMood: I am doing really good.Affect: appropriate and congruent with moodSpeech: normal rate and volumeThought Processes: linear, goal directedAssociations: NormalThought Content: Denies SI and HIPerceptual Disturbances: Denies auditory or visual hallucinations and Does notappear to be responding to internal stimuliCognition: Level of Alertness: Normal Orientation: fully alert and oriented, person, place, time andsituation Attention Span/Concentration: age appropriate, intact Recent & Remote Memory: grossly intact Fund of Knowledge/Estimated intelligence: appears average Language: NormalInsight: age appropriate and goodJudgment: age appropriate and goodLab Results:NoneMedications:Mitesh gonzales Outpatient PrescriptionsMedication Sig methylphenidate 54 MG CR tablet Take 1 Tab (54 mg) by mouth daily (withbreakfast) Earliest Fill Date: 11/03/16 ziprasidone (GEODON) 60 MG Take 1 Cap (60 mg) by mouth 2 times daily sertraline (ZOLOFT) 25 MG tablet Take 1 Tab (25 mg) by mouth nightly atbedtime cloNIDine (CATAPRES) 0.1 MG tablet Take 1 Tab (0.1 mg) by mouth nightly atbedtime busPIRone (BUSPAR) 10 MG tablet Take 1 Tab (10 mg) by mouth 2 times daily methylphenidate (RITALIN) 10 MG tablet Take one tab everyday after school loratadine (CLARITIN) 10 MG tablet Take by mouth daily Indications: Hayfever SUMAtriptan (IMITREX) 25 MG tablet Take 25 mg by mouth as needed for Migraine Omeprazole 20 MG TBEC Take 20 mg by mouth daily. Indications: GERD-RelatedLaryngitis IBUPROFEN PO Take by mouth. doxycycline 100 MG Take 100 mg by mouth daily. Indications: Acne azithromycin (ZITHROMAX) 250 MG tablet Take by mouth. 2 tabs (500 mg) today,then 1 tab (250 mg) days 2-5.Medication Issues: No ADR'sMedication Changes: NoASSESSMENT/DIAGNOSIS:Ch eyenne is a 16 y.o. female diagnosed with:Voca I :1. Episodic mood disorder ziprasidone (GEODON) 60 MG Complete Blood Count w Differential Comprehensive Metabolic Panel - Fasting Lipid Panel - Fasting TSH2. Generalized anxiety disorder busPIRone (BUSPAR) 10 MG tablet sertraline (ZOLOFT) 25 MG tablet3. Oppositional defiant disorder4. Attention deficit hyperactivity disorder (ADHD), combined type cloNIDine(CATAPRES) 0.1 MG tablet methylphenidate 54 MG CR tablet methylphenidate (RITALIN) 10 MG tabletTreatment Goal and objectives:Refer to Medical ISP.Session summary: treatment plan reviewed, medication education provided,learning needs assessed, therapeutic communication providedImpression: Melly appears to be doing well. She reports stable moods. Heranxiety and ADHD appears to be adequately controlled. Mother and Melly haveno concerns at this time.PLAN:1. Continue medications as prescribed. Make the following changes; no changes atthis time.2. Encouraged individual and family psychotherapy. Previously with [facility]- with Delma.3. Follow up in 3 months.4. Have the following labs completed: CBC with diff, CMP, Fasting LipidProfile, and TSH d/t intermediate school teacher medication use.Electronically signed:VERITO Willson [facility] Progress Noteon 09-08-2016 Help Desk Operator Authentication Interface Message Text Psychopharmacology Progress NoteCherex Stover is a 16 y.o. female presenting today forChief ComplaintPatient presents with Medication Management.Interim History:She is accompanied by her mother.. Last seen by VERITO Artis 11/07/15Last seen by Joy Watkins May 2016Seen with her mother, todayAt this time, Melly is doing very well. Mood is stable. She has had minimalsx of depression or anxiety, with the start of the zoloftPertinent Problems: Zoloft 25 mg was started in for depression andanxiety. This has worked well to control her sx. She believes that this dose isworking well currently. Today she was attentive, relaxed and smiling during themed checkMother reports C seems less depressed. She is more interactive at home, andout of her room more. No aggression reported today. Getting out with her friendssociallyParent reported no concern about SI or HI for Melly. Melly denied any SItodayShe went to Mandaeism camp for a [place], in [place]. She had a great time, and wassmiling as she told me about this Melly is currently looking for a summer jobBoth mother and Melly see her as doing well currently. Neither wish to changeany medications at this timePeer/Family Relationships:improving , still some arguements but no aggressionwith arguing. The arguments are WNL, per [facility]Cor[facility]- [facility]- weekly, she continues to meet with Delma,whom she has seen for almost one yearSchool Behavior/Grades:[employer]- Grades are good; A's and 1 B this last grading period. 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 Depressed mood andself-isolation was/were denied Depression scale- 0 since med.. Feelings ofirritability was/were endorsed, but Mother noted that it was normal for herageAnxiety-related concerns were denied by: Patient. Anxiety, chronic/excessiveworry and irritability was/were deniedBehavioral concerns were denied by: mother. Argumentativeness was/were reportedor observed. Mother stated that Melly has a normal teen attitudeAttentional concerns were denied by: Patient.Symptoms of psychosis/thought disorders were denied by: Patient.Pain HistoryCurrent Pain RatinPain Scale UsedScale Used: Numeric Scale (1-10)0-10 Scale: 0Vitals: 09/08/16 1035BP: 128/75Pulse: 90Wt Readings from Last 3 Encounters:09/08/16 (!) 122.8 kg (>99 %, Z= 2.57)*05/25/16 (!) 121.5 kg (>99 %, Z= 2.57)*05/04/16 (!) 121.5 kg (>99 %, Z= 2.57) Growth percentiles are based on [facility] 2-20 Years data.Ht Readings from Last 3 Encounters:09/08/16 158.5 cm (24 %, Z= -0.70)*05/25/16 158.1 cm (23 %, Z= -0.75)*05/04/16 159 cm (27 %, Z= -0.61) Growth percentiles are based on [facility] 2-20 Years data.Body mass index is 48.88 kg/(m^2).>99 %ile (Z= 2.55) based on CDC 2-20 Years BMI-for-age data using vitals from09/08/2016.Lab Results:Labs due in 2016Current MedicationsCurrent Outpatient PrescriptionsMedication Sig Dispense Refill methylphenidate 54 MG CR tablet Take 1 Tab (54 mg) by mouth daily (withbreakfast) Earliest Fill Date: 08/05/16 30 Tab 0 methylphenidate (RITALIN) 10 MG tablet Take one tab everyday after schoolEarliest Fill Date: 07/29/16 30 Tab 0 sertraline (ZOLOFT) 25 MG tablet Take 1 Tab (25 mg) by mouth nightly atbedtime 30 Each 0 busPIRone (BUSPAR) 10 MG tablet Take 1 Tab (10 mg) by mouth 2 times daily 60Tab 2 cloNIDine (CATAPRES) 0.1 MG tablet Take 1 Tab (0.1 mg) by mouth nightly atbedtime 30 Tab 2 ziprasidone (GEODON) 60 MG Take 1 Cap (60 mg) by mouth 2 times daily 60 Cap 2 loratadine (CLARITIN) 10 MG tablet Take by mouth daily Indications: Hayfever Omeprazole 20 MG TBEC Take 20 mg by mouth daily. Indications: GERD-RelatedLaryngitis IBUPROFEN PO Take by mouth. SUMAtriptan (IMITREX) 25 MG tablet Take 25 mg by mouth as needed for Migraine doxycycline 100 MG Take 100 mg by mouth daily. Indications: Acne azithromycin (ZITHROMAX) 250 MG tablet Take by mouth. 2 tabs (500 mg) today,then 1 tab (250 mg) days 2-5.No current facility-administered medications for this visit.Medication side effects: tiredPhysical ExamPhysical ExamConstitutional: She is oriented to person, place, and time.Neurological: She is alert and oriented to person, place, and time. Gait normal.Mental Status ExamAppearance/Behavior: Hyacinths appearance is well groomed. Behavior iscooperative.Mood/Affect : Mood is euthymic. Affect is full. Speech is clear. Thoughtprocesses are logical. Associations are intact.Thought Processes: Delusions: none. Obsessions: none. Suicidal Ideations: none. Self injury plans: none. HomicidalIdeation: none.Perceptual Disturbances: Hallucinations: none reported.Cognition: Sensorium is alert. Orientation is normal. Concentration is normal.Memory is normal. Fund of knowledge is average. Language is normal.Insight/Judgment: Insight is fair. Judgment is fair.Visit Diagnosis:1. Attention deficit hyperactivity disorder (ADHD), combined type2. Episodic mood disorder3. Generalized anxiety disorder4. Oppositional defiant disorderTreatment Goal/Objective: Treatment plan reviewed,medication educationprovided,learnin g needs assessed, continue therapyAssessment: improved mood on Zoloft ,anxiety and depression are minimal; mood isstableRecommendations & Plan:Continue current medications as prescribed. Neither wished to decrease anymedications during the summer. Mother believes that she is doing very well, anddoes not wish to risk an increase in sx. However, they may try to wean from thebuspar over the summer, at my request. I suggested that they consider a decreaseto one tab daily for one month and then DC. Mother will consider this optionMed check in 3 [facility]:54 AM09/08/2016 Normal [facility] Vital Signs Date Time Vital Sign Value Performing Clinician Facility 08-17-2024 13:57-0400 Body height 157.48 cm No Primary Care Physician [facility] 08-17-2024 13:57-0400 Body mass index (BMI) [Ratio] 55.2 kg/m2 No Primary Care Physician [facility] 08-17-2024 13:57-0400 Body temperature 98.6 [degF] No Primary Care Physician [facility] 08-17-2024 13:57-0400 Body weight 136.98 kg No Primary Care Physician [facility] 08-17-2024 13:57-0400 Diastolic blood pressure 100 mm[Hg] No Primary Care Physician [facility] 08-17-2024 13:57-0400 Heart rate 92 /min No Primary Care Physician [facility] 08-17-2024 13:57-0400 Respiratory rate 16 /min No Primary Care Physician [facility] 08-17-2024 13:57-0400 SaO2% (BldA) [Mass fraction] 98 % No Primary Care Physician [facility] 08-17-2024 13:57-0400 Systolic blood pressure 146 mm[Hg] No Primary Care Physician [facility] 07-04-2024 09:31-0400 Body height 157.48 cm No Primary Care Physician [facility] 07-04-2024 09:31-0400 Body mass index (BMI) [Ratio] 55.9 kg/m2 No Primary Care Physician [facility] 07-04-2024 09:31-0400 Body temperature 97.2 [degF] No Primary Care Physician [facility] 07-04-2024 09:31-0400 Body weight 138.66 kg No Primary Care Physician [facility] 07-04-2024 09:31-0400 Diastolic blood pressure 87 mm[Hg] No Primary Care Physician [facility] 07-04-2024 09:31-0400 Heart rate 91 /min No Primary Care Physician [facility] 07-04-2024 09:31-0400 Respiratory rate 19 /min No Primary Care Physician [facility] 07-04-2024 09:31-0400 SaO2% (BldA) [Mass fraction] 99 % No Primary Care Physician [facility] 07-04-2024 09:31-0400 Systolic blood pressure 154 mm[Hg] No Primary Care Physician [facility] 05-16-2024 16:42-0500 Body temperature 98.2 [degF] No Primary Care Physician [facility] 05-16-2024 16:42-0500 Diastolic blood pressure 86 mm[Hg] No Primary Care Physician [facility] 05-16-2024 16:42-0500 Heart rate 85 /min No Primary Care Physician [facility] 05-16-2024 16:42-0500 Respiratory rate 16 /min No Primary Care Physician [facility] 05-16-2024 16:42-0500 SaO2% (BldA) [Mass fraction] 99 % No Primary Care Physician [facility] 05-16-2024 16:42-0500 Systolic blood pressure 144 mm[Hg] No Primary Care Physician [facility] 05-16-2024 13:22-0500 Body mass index (BMI) [Ratio] 53.4 kg/m2 No Primary Care Physician [facility] 05-16-2024 13:22-0500 Body weight 132.5 kg No Primary Care Physician [facility] 01-06-2022 18:36-0400 Respiratory rate 16 /min [facility] Work Phone: 01-06-2022 16:24-0400 Body height 157.48 cm [facility] Work Phone: 01-06-2022 16:24-0400 Body mass index (BMI) [Ratio] 62.1 kg/m2 [facility] Work Phone: 01-06-2022 16:24-0400 Body temperature 97.7 [degF] [facility] Work Phone: 01-06-2022 16:24-0400 Body weight 154.22 kg [facility] Work Phone: 01-06-2022 16:24-0400 Diastolic blood pressure 103 mm[Hg] [facility] Work Phone: 01-06-2022 16:24-0400 Heart rate 98 /min [facility] Work Phone: 01-06-2022 16:24-0400 SaO2% (BldA) [Mass fraction] 98 % [facility] Work Phone: 01-06-2022 16:24-0400 Systolic blood pressure 147 mm[Hg] [facility] Work Phone: 07-11-2021 11:06-0400 Body temperature 99.39 [degF] Linsey Soares APRN.SOLE ROUGHER Work Phone: [facility] 07-11-2021 11:06-0400 Body weight 153.5 kg Linsey Soares APRN.SOLE ROUGHER Work Phone: [facility] 07-11-2021 11:06-0400 Diastolic blood pressure 84 mm[Hg] Linsey Praisler-Wood FIRE CONTROLMAN.SOLE ROUGHER Work Phone: [facility] 07-11-2021 11:06-0400 Heart rate 100 /min Linsey Praisler-Wood FIRE CONTROLMAN.SOLE ROUGHER Work Phone: [facility] 07-11-2021 11:06-0400 Respiratory rate 21 /min Linsey Praisler-Wood FIRE CONTROLMAN.SOLE ROUGHER Work Phone: [facility] 07-11-2021 11:06-0400 SaO2% (BldA) [Mass fraction] 97 % Linsey Praisler-Wood FIRE CONTROLMAN.SOLE ROUGHER Work Phone: [facility] 07-11-2021 11:06-0400 Systolic blood pressure 126 mm[Hg] Linsey Praisler-Wood FIRE CONTROLMAN.SOLE ROUGHER Work Phone: [facility] Encounters Encounter Date Encounter Type Care Provider Facility Start: 11-16-2024 End: 11-16-2024 ambulatory Rocíojose Valente Facility:[facility] Start: 09-28-2024 End: 09-28-2024 ambulatory Rocío Lehighton Facility:[facility] Start: 09-28-2024 End: 09-28-2024 ambulatory Rocío Lehighton Facility:[facility] Start: 08-31-2024 End: 08-31-2024 ambulatory Rocío Lehighton Facility:[facility] Start: 08-17-2024 End: 08-17-[address] Rocío Valente MD -[facility] Work Phone: Start: 08-17-2024 End: 08-17-2024 ambulatory No Primary Care Physician [facility] Work Phone: Start: 07-04-2024 End: 07-04-2024 Emergency department patient visit No Primary Care Physician -Emergency Department Work Phone: Start: 05-16-2024 End: 05-16-2024 Emergency department patient visit Dr. Leonel Aquino MD -[facility] Department Work Phone: Start: 01-15-2024 End: 01-15-2024 Emergency department patient visit No Primary Care Physician Facility:[facility] Start: 11-20-2023 End: 11-20-2023 Emergency department patient visit No Primary Care Physician Facility:[facility] Start: 09-02-2023 End: 09-02-2023 Emergency department patient visit JOANNE NGUYỄN QUIANA [facility] Start: 01-06-2022 End: 01-06-2022 Emergency department patient visit [facility]-Emergency Department Start: 07-12-2021 Telephone encounter Erica Guru hamilton APRN.SOLE ROUGHER Work Phone: [facility] Comment on above: Results Start: 07-11-2021 End: 07-11-2021 Patient encounter procedure Linsey Soares APRN.CNP Work Phone: [facility] Comment on above: Sore throat (Primary Dx); Viral URI Start: 05-04-2019 End: 05-05-2019 Patient encounter procedure NONE NONE Facility:[facility] Start: 04-29-2019 End: 04-29-2019 Patient encounter procedure NONE NONE Facility:[facility] Start: 02-21-2019 End: 02-21-2019 Patient encounter procedure GISEL GU Facility:[facility] Start: 01-01-2017 End: 01-01-2017 Ambulatory MENIFEE oMhini [facility] Start: 09-08-2016 End: 09-08-2016 Ambulatory [facility] Procedures Date Procedure Procedure Detail Performing Clinician Start: 05-16-2024 Urnls dip stick/tabl et reagent auto microscopy No Primary Care Physician Start: 05-16-2024 Estimated creatinine clearance No Primary Care Physician Start: 01-06-2022 Plain chest X-ray Start: 07-11-2021 STREP A MOLECULAR (POC) Linsey Soares APRN.CNP Work Phone: Start: 10-26-2016 Adult depression screening assessment Linsey Soares APRN.CNP Work Phone: Plan of Treatment Date Care Activity Detail Author Start: 07-04-[address] [facility] Start: 01-06-[address] [facility] Work Phone: Start: 11-13-2021 Influenza vaccination INFLUENZ A (Season Ended) [facility] Start: 07-23-2021 Urine microalbumin profile DTAP,TDAP,TD (4 - Td or Tdap) [facility] Start: 07-11-2021 End: 07-25-2021 Influenza virus A and B RNA and SARS-CoV-2 (COVID-19) N gene panel - Respiratory specimen by LANG with probe detection COVID WITH FLUA+B, ROUTINE Microbiology Routine Viral URI Expected: 07/11/2021, Expires: 07/25/2021 [facility] Work Phone: Comment on above: Expected: 07/11/2021 , Expires: 07/25/2021 Start: 02-26-2020 PAP TESTING PAP TESTING [facility] Start: 10-26-2017 Adult depression screening assessment DEPRESSION SCREENING [facility] Start: 2017 CHLAMYDIA SCREENING (18-24) CHLAMYDIA SCREENING (18-24) [facility] Start: 2017 GC (GONORRHEA) SCREE LIZETH (18-24) GC (GONORRHEA) SCREENING (18-24) [facility] Start: 2017 HEPATITIS C SCREENING HEPATITIS C SC REENING [facility] Start: 2017 HIV SCREENING HIV SCREENING [facility] Start: 2013 PEDS TO ADULT TRANSI TION ANNUAL ASSESSMENT PEDS TO ADULT TRANSITION ANNUAL ASSESSMENT [facility] Start: 2011 PEDS TO ADULT TRANSI TION INITIAL DISCUSSION PEDS TO ADULT TRANSITION INITIAL DISCUSSION [facility] Start: 2009 MENINGOCOCCAL B: Consider based on risk (1 of 2 - Risk Bexsero 2-dose series) MENINGOCOCCAL B: Consider based on risk (1 of 2 - Risk Bexsero 2-dose series) [facility] Start: 02-26-2004 COVID-19 VACCINE (1) COVID-19 VACCIN E (1) [facility] Influenza virus A an d B and SARS-CoV-2 (COVID-19) Ag panel - Upper respiratory specim [facility] Work Phone: Patient Education [facility] Work Phone: Patient referral [facility] Work Phone: SARS-CoV-2 & FLU Ant igen (Rapid) SARS-CoV-2 & FLU Antigen (Rapid) [facility] Work Phone: Immunizations Immunization Date Immunization Notes Care Provider Fa cili 01-15-2024 tetanus toxoid, redu dino diphtheria toxoid, and acellular pertussis vaccine, adsorbed No Primary Care Physician [facility] 10-26-2016 hepatitis B vaccine, pediatric or pediatric/adolescent dosage Linsey Elamler-Horcae FIRE CONTROLMAN.[facility] Work Phone: [facility] 05-24-2015 meningococcal polysaccharide (groups A, C, Y and W-135) diphtheria toxoid conjugate vaccine (MCV4P) Linsey Soares FIRE CONTROLMAN.[facility] Work Phone: [facility] 10-25-2012 human papilloma viru s vaccine, quadrivalent Linsey Charlesisler-Wood FIRE CONTROLMAN.SOLE R[employer]ER Work Phone: [facility] 10-02-2011 hepatitis B vaccine, pediatric or pediatric/adolescent dosage Linsey Charlesisler-Wood FIRE CONTROLMAN.[employer] R[employer] Work Phone: [facility] 10-02-2011 human papilloma viru s vaccine, quadrivalent Linsey Charlesisler-Wood FIRE CONTROLMAN.[employer] R[employer]ER Work Phone: [facility] 10-02-2011 poliovirus vaccine, inactivated Linsey Hughse-Horace FIRE CONTROLMAN.SO[employer] R[employer]ER Work Phone: [facility] 10-02-2011 varicella virus vaccine Carmen y Araceliiskiara-Horace FIRE CONTROLMAN.SO[employer] R[employer]ER Work Phone: [facility] 07-24-2011 human papilloma viru s vaccine, quadrivalent Linsey Praisler-Wood FIRE CONTROLMAN.[employer] R[employer] Work Phone: [facility] Work Phone: 07-24-2011 meningococcal polysaccharide (groups A, C, Y and W-135) diphtheria toxoid conjugate vaccine (MCV4P) No Primary Care Physician [facility] 07-24-2011 Meningococcal, MCV4, unspecified conjugate formulation(groups A, C, Y and W-135) Linsey Soares APRN.SOLE ROUGHER Work Phone: [facility] Work Phone: 07-24-2011 tetanus toxoid, redu dino diphtheria toxoid, and acellular pertussis vaccine, adsorbed Linsey Soares FIRE CONTROLMAN.SOLE ROUGHER Work Phone: [facility] Work Phone: 12-27-2008 novel Influenza-H1N1 -09, live virus for nasal administration No Primary Care Physician [facility] 01-20-2007 influenza, injectabl e, quadrivalent, preservative free No Primary Care Physician [facility] 01-20-2007 influenza, seasonal, injectable Linsey Soares APRN.SOLE ROUGHER Work Phone: [facility] 12-20-2003 diphtheria, tetanus toxoids and acellular pertussis vaccine No Primary Care Physician [facility] 12-20-2003 diphtheria, tetanus toxoids and pertussis vaccine Linsey Soares APRN.SOLE ROUGHER Work Phone: [facility] 12-20-2003 measles, mumps and rubella virus vaccine Linsey Soares APRN.SOLE ROUGHER Work Phone: [facility] 12-20-2003 poliovirus vaccine, inactivated Linsey Soares APRN.SOLE ROUGHER Work Phone: [facility] 07-08-2000 diphtheria, tetanus toxoids and acellular pertussis vaccine No Primary Care Physician [facility] 07-08-2000 diphtheria, tetanus toxoids and pertussis vaccine Linsey Soares APRN.SOLE ROUGHER Work Phone: [facility] 07-08-2000 haemophilus influenz ae type b conjugate and Hepatitis B vaccine No Primary Care Physician [facility] 07-08-2000 haemophilus influenz ae type b vaccine, HbOC conjugate Linsey Soares APRN.SOLE ROUGHER Work Phone: [facility] 07-08-2000 hepatitis B vaccine, pediatric or pediatric/adolescent dosage Linsey Soares APRN.SOLE ROUGHER Work Phone: [facility] 07-08-2000 pneumococcal conjuga te vaccine, 7 valent Linsey Soares FIRE CONTROLMAN.SOLE ROUGHER Work Phone: [facility] 07-08-2000 poliovirus vaccine, inactivated Linsey Soares FIRE CONTROLMAN.SOLE ROUGHER Work Phone: [facility] 02-27-2000 measles, mumps and rubella virus vaccine Linsey Soares FIRE CONTROLMAN.SOLE ROUGHER Work Phone: [facility] 02-27-2000 pneumococcal conjuga te vaccine, 7 valent Linsey Soares FIRE CONTROLMAN.SOLE ROUGHER Work Phone: [facility] 02-27-2000 varicella virus vaccine Carmen ZelayaHorace FIRE CONTROLMAN.SOLE ROUGHER Work Phone: [facility] Payers Date Payer Category Payer Unknown [id number] 2023 Self-pay [id number] 2021 Unknown [employer]ACH[employer]UJAR ACCE PPO [id number] 2021-Present [phone] [address] [place] [id number] PPO [id number] 2013 Unknown [facility] [id number] 1999 Unknown [id number] 1999 Unknown [id number] 1999 Unknown [id number] 1959 Unknown [id number] Medicaid [id number] Unknown [id number] Unknown [id number] Unknown [id number] Unknown [id number] Unknown [id number] Unknown [id number] Unknown [id number] Unknown [id number] Unknown [id number] Unknown [id number] Social History Date Type Detail Facility Start: 08-10-2019 [facility] Work Phone: Start: 08-10-2019 Tobacco use and exposure Smoke less tobacco non-user [facility] Work Phone: Start: 07-11-2021 Alcohol intake Current non-dr installation drafter of alcohol (finding) [facility] Start: 07-24-2011 Tobacco Comment mom and dad sm okes outside and inside [facility] Start: 1999 Sex Assigned At Not on file C [facility] Start: 07-01-2021 End: 07-11-2021 Exposure to SARS-CoV-2 (event) Not sure [facility] Work Phone: Start: 01-06-2022 [facility] Unknown if ever smoked [facility] Work Phone: Start: 03-10-2020 [facility] Start: 03-10-[address] Family [facility] Start: 05-25-[address] [facility] Start: 2000 Sex Assigned At Female [facility] Start: 07-04-2024 [facility] Current Light tobacco smoker [facility] Start: 07-04-2024 Sex Female (finding) [facility] Start: 08-17-2024 [facility] Ex-smoker (finding) [facility] Gender Identity Identifies as fe male gender (finding) [facility] Sexual Orientation Bisexual (finding) [facility] Mental Status Date Assessment Result Facility 07-04-2024 Cognitive function Level Of Cons ciousness Awake;Alert;Appropriate [facility] Work Phone: 01-06-2022 Cognitive function Level Of Cons ciousness Awake;Alert;Appropriate;Follow s Commands [facility] Work Phone: Clinical Notes 11-02-2013 to 07-12-2021 Telephone Encounter - Kristy Banuelos LPN - 07/12/2021 10:31 AM EDTTelephone Encounter - Kristy Banuelos LPN - 07/12/2021 10:30 AM EDTPatient Instructions Note Date & Type Note Facility 07-12-2021 Miscellaneous Notes Patient notified. Verbalized understanding. ----- Message from Erica Loyola APRN.SOLE ROUGHER sent at 07/12/2021 8:17 AM EDT ----- Please inform patient of negative COVID and Influenza. Continue treatment plan at time of discharge. Follow up with PCP. Return with worsening symptoms. documented in this encounter [facility] 07-11-2021 Influenza virus A and B RNA and SARS-CoV-2 (COVID-19) N gene panel LANG+probe (Resp) COVID 19 RESULT: SARS-CoV-2 (Agent of COVID-19) Not Detected by RT-PCR or equivalent method. mckinley [id number] (BENJAMÍN)_EUA This test was developed and its performance characteristics determined by [facility]'s [facility]. This test has been authorized by FDA under an Emergency Use Authorization (EUA). This test has been validated in accordance with the FDA's Guidance Document Policy for Diagnostics Testing in Laboratories Certified to Perform High Complexity Testing under CLIA prior to Emergency use Authorization for Coronavirus Disease 2019 during the Public Health Emergency issued on May 13, 2019. Test performed by [facility], [facility] [place], [address] [place] [address]. INFLUENZA A PCR: Negative for Influenza A by RT-PCR INFLUENZA B PCR: Negative for Influenza B by RT-PCR [facility] Comment on above: Performed By: #### 9 [id number] #### [facility] CLIA [id number] [address] [place] [address] [facility] 07-11-2021 Note HNO ID: [id number] Author: Linsey Soares APRN.SOLE ROUGHER Service: ? Author Type: Nurse Practitioner Type: Progress Notes Filed: 07/11/2021 12:13 PM Note Text: Subjective HPI Melly Stover is a 21 year old female who presents with sore throat, runny nose, headache for the past 2 days. She has been taking ibuprofen. She denies known sick contacts. Her symptoms started after seeing the dentist. She has not had a fever. She took a home COVID test which was negative. Review of Systems Constitutional: Negative for chills and fever. HENT: Positive for congestion and sore throat. Negative for ear pain. Respiratory: Positive for cough. Cardiovascular: Negative. Neurological: Positive for headaches. BP 126/84 Pulse 100 Temp 37.4 ?C (99.4 ?F) Resp 21 Wt (!) 153.5 kg (338 lb 6.4 oz) LMP 06/30/2021 SpO2 97% PAST MEDICAL HISTORY Diagnosis Date - ADHD (attention deficit hyperactivity disorder) - ADHD (attention deficit hyperactivity disorder) 07/26/2011 - Bipolar 1 disorder (HCC) - Gallbladder sludge 10/25/13 - NEGATIVE HISTORY OF 07/24/11 normal color vision - ODD (oppositional defiant disorder) - RUQ pain 10/25/13 PAST SURGICAL HISTORY Procedure Laterality Date - LAPAROSCOPY SURG CHOLECYSTECTOMY 10/25/13 ALLERGIES Prednisone MEDICATIONS medroxyPROGESTERone (DEPO-PROVERA) 150 mg/mL Inject 1 mL intramuscularly every 12 weeks. Omeprazole 20 mg TbEC Take 20 mg by mouth once daily. sertraline (ZOLOFT) 25 mg tablet Take 25 mg by mouth once daily. from [employer] methylphenidate ER (CONCERTA) 54 mg CR tablet Take 54 mg by mouth once daily. methylphenidate LA (RITALIN LA) 10 mg 24 hr capsule Take 10 mg by mouth once daily. busPIRone 5 mg tablet Takes 10 mg in the Am and 10 mg at night - From [employer] cloNIDine 0.1 mg tablet 0.1 mg. Takes 0.1 mg at bedtime - from [employer] ziprasidone (GEODON) 20 mg capsule 20 mg. Takes 40 mg in the morning and 60 mg in the PM - from [employer] FAMILY HISTORY Problem Relation Age of Onset - other (heart problems) Paternal Grandfather IA in 70's - Hypertension Maternal Grandfather - Colon Cancer Maternal Grandfather - other (afib) Maternal Grandfather - Diabetes Maternal Grandmother Social History Tobacco Use - Smoking status: Current Every Day Smoker - Smokeless tobacco: Never Used - Tobacco comment: mom and dad smokes outside and inside Vaping Use - Vaping Use: Never used Substance Use Topics - Alcohol use: No - Drug use: No Objective Physical Exam Vitals and nursing note reviewed. Constitutional: Appearance: She is obese. HENT: Right Ear: Tympanic membrane, ear canal and external ear normal. Left Ear: Tympanic membrane, ear canal and external ear normal. Nose: Nose normal. Mouth/Throat: Mouth: Mucous membranes are moist. Pharynx: Uvula midline. Posterior oropharyngeal erythema (slight) present. No oropharyngeal exudate. Tonsils: 2+ on the right. 2+ on the left. Cardiovascular: Rate and Rhythm: Normal rate and regular rhythm. Heart sounds: Normal heart sounds. Pulmonary: Effort: Pulmonary effort is normal. No respiratory distress. Breath sounds: Normal breath sounds. No wheezing or rales. Musculoskeletal: Cervical back: Neck supple. Lymphadenopathy: Cervical: No cervical adenopathy. Skin: General: Skin is warm and dry. Findings: No erythema or rash. Neurological: Mental Status: She is alert. ASSESSMENT/PLAN: 1. Sore throat - ICD9: 462, ICD10: J02.9 (primary diagnosis) - suspect viral - Alere Strep Test NEGATIVE, no culture pending - Discussed supportive care treatment with fluids, rest and analgesia. - The patient may also use warm salt water gargles, throat lozenges and/or OTC throat spray as needed. CEPACOL lozenges work well. - STREP A MOLECULAR (POC) 2. Viral URI - ICD9: 465.9, ICD10: J06.9 - Discussed viral etiology and rationale for treatment. - Symptomatic treatment with prn analgesia - Supportive care with fluids and rest - COVID WITH FLUA+B, ROUTINE - Follow-up with your PCP in 3-5 days if symptoms have not improved or sooner if symptoms worsen - Discussed red flags and need for immediate medical evaluation if any occur. - Discussed supportive care treatment with fluids, rest and analgesia. - Discussed expected course of illness Linsey Soares APRN.PHI [facility] 07-11-2021 Instructions Linsey Soares APRN.[facility] 07/11/2021 11:28 AM EDT ASSESSMENT/PLAN: 1. Sore throat - ICD9: 462, ICD10: J02.9 (primary diagnosis) - suspect viral - Alere Strep Test NEGATIVE, no culture pending - Discussed supportive care treatment with fluids, rest and analgesia. - The patient may also use warm salt water gargles, throat lozenges and/or OTC throat spray as needed. CEPACOL lozenges work well. - STREP A MOLECULAR (POC) 2. Viral URI - ICD9: 465.9, ICD10: J06.9 - Discussed viral etiology and rationale for treatment. - Symptomatic treatment with prn analgesia - Supportive care with fluids and rest - COVID WITH FLUA+B, ROUTINE - Follow-up with your PCP in 3-5 days if symptoms have not improved or sooner if symptoms worsen - Discussed red flags and need for immediate medical evaluation if any occur. - Discussed supportive care treatment with fluids, rest and analgesia. - Discussed expected course of illness Linsey Soares APRN.PHI Treatment for Viral Upper Respiratory Tract Infections Your body will kill off the virus by itself. Additionally, you can prime your body's immune system. This may help you get better more quickly. 1. Drink lots of fluids - at least one gallon of non-caffeinated liquids per day 2. Make sure you are eating well 3. Get plenty of rest - at least 8 hours of sleep per night for adults and more for children We do not have any medications that kill off these viruses. Antibiotics are used to treat bacterial infections; however, they are not active against viral infections. There are some things that might help you feel better, though. 1. Vaporizers, humidifiers, hot showers, and hot fluids help open respiratory and sinus passages 2. [place] Nasal [place] may offer relief of nasal and head congestion 3. Ramses's Vapor Rub may relieve congestion 4. Tylenol and Advil help control fevers and headaches 5. Salt water gargles help relieve sore throats 6. Chloraceptic spray or CEPACOL throat lozenges may also help relieve sore throat symptoms 7. Robitussin DM will help loosen up secretions and also provide relief from a cough Occasionally, viral infections turn into something more serious. You should see your doctor or return to the Urgent Care if: 1. You have fevers for longer than five days 2. You have fevers above 102 degrees 3. You are still sick after 10 days 4. You have shortness of breath or wheezing 5. After several days you are getting worse rather than better documented in this encounter [facility] 07-11-2021 History of Presen t illness Narrative Subjective HPI Melly Stover is a 21 year old female who presents with sore throat, runny nose, headache for the past 2 days. She has been taking ibuprofen. She denies known sick contacts. Her symptoms started after seeing the dentist. She has not had a fever. She took a home COVID test which was negative. Review of Systems Constitutional: Negative for chills and fever. HENT: Positive for congestion and sore throat. Negative for ear pain. Respiratory: Positive for cough. Cardiovascular: Negative. Neurological: Positive for headaches. BP 126/84 Pulse 100 Temp 37.4 C (99.4 F) Resp 21 Wt (!) 153.5 kg (338 lb 6.4 oz) LMP 06/30/2021 SpO2 97% PAST MEDICAL HISTORY Diagnosis Date ADHD (attention deficit hyperactivity disorder) ADHD (attention deficit hyperactivity disorder) 07/26/2011 Bipolar 1 disorder (HCC) Gallbladder sludge 10/25/13 NEGATIVE HISTORY OF 07/24/11 normal color vision ODD (oppositional defiant disorder) RUQ pain 10/25/13 PAST SURGICAL HISTORY Procedure Laterality Date LAPAROSCOPY SURG CHOLECYSTECTOMY 10/25/13 ALLERGIES Prednisone MEDICATIONS medroxyPROGESTERone (DEPO-PROVERA) 150 mg/mL Inject 1 mL intramuscularly every 12 weeks. Omeprazole 20 mg TbEC Take 20 mg by mouth once daily. sertraline (ZOLOFT) 25 mg tablet Take 25 mg by mouth once daily. from [facility] methylphenidate ER (CONCERTA) 54 mg CR tablet Take 54 mg by mouth once daily. methylphenidate LA (RITALIN LA) 10 mg 24 hr capsule Take 10 mg by mouth once daily. busPIRone 5 mg tablet Takes 10 mg in the Am and 10 mg at night - From [employer] cloNIDine 0.1 mg tablet 0.1 mg. Takes 0.1 mg at bedtime - from [employer] ziprasidone (GEODON) 20 mg capsule 20 mg. Takes 40 mg in the morning and 60 mg in the PM - from [employer] FAMILY HISTORY Problem Relation Age of Onset other (heart problems) Paternal Grandfather IA in 70's Hypertension Maternal Grandfather Colon Cancer Maternal Grandfather other (afib) Maternal Grandfather Diabetes Maternal Grandmother Social History Tobacco Use Smoking status: Current Every Day Smoker Smokeless tobacco: Never Used Tobacco comment: mom and dad smokes outside and inside Vaping Use Vaping Use: Never used Substance Use Topics Alcohol use: No Drug use: No Objective Physical Exam Vitals and nursing note reviewed. Constitutional: Appearance: She is obese. HENT: Right Ear: Tympanic membrane, ear canal and external ear normal. Left Ear: Tympanic membrane, ear canal and external ear normal. Nose: Nose normal. Mouth/Throat: Mouth: Mucous membranes are moist. Pharynx: Uvula midline. Posterior oropharyngeal erythema (slight) present. No oropharyngeal exudate. Tonsils: 2+ on the right. 2+ on the left. Cardiovascular: Rate and Rhythm: Normal rate and regular rhythm. Heart sounds: Normal heart sounds. Pulmonary: Effort: Pulmonary effort is normal. No respiratory distress. Breath sounds: Normal breath sounds. No wheezing or rales. Musculoskeletal: Cervical back: Neck supple. Lymphadenopathy: Cervical: No cervical adenopathy. Skin: General: Skin is warm and dry. Findings: No erythema or rash. Neurological: Mental Status: She is alert. ASSESSMENT/PLAN: 1. Sore throat - ICD9: 462, ICD10: J02.9 (primary diagnosis) - suspect viral - Alere Strep Test NEGATIVE, no culture pending - Discussed supportive care treatment with fluids, rest and analgesia. - The patient may also use warm salt water gargles, throat lozenges and/or OTC throat spray as needed. CEPACOL lozenges work well. - STREP A MOLECULAR (POC) 2. Viral URI - ICD9: 465.9, ICD10: J06.9 - Discussed viral etiology and rationale for treatment. - Symptomatic treatment with prn analgesia - Supportive care with fluids and rest - COVID WITH FLUA+B, ROUTINE - Follow-up with your PCP in 3-5 days if symptoms have not improved or sooner if symptoms worsen - Discussed red flags and need for immediate medical evaluation if any occur. - Discussed supportive care treatment with fluids, rest and analgesia. - Discussed expected course of illness Linsey Soares APRN.SOLE ROUGHER documented in this encounter [facility] 11-02-2013 History of Past i llness Narrative Problem Noted Date Resolved Date Right upper quadrant pain 11/02/20132015 documented as of this encounter (statuses as of 07/11/2021) [facility]08-[facility] History of Past illness Narrative* Problem Noted Date Resolved Date Right upper quadrant pain 11/02/20132015 documented as of this encounter (statuses as of 07/12/2021) [facility] Sore throat- Primary Acute pharyngitis Viral URI Acute upper respiratory infections of unspecified site [facility] this [facility] noteNo assessment information availableW[facility] Work Phone: Evaluation note* Diagnosis Onset Date Resolution Status Admit Date Establishing care with new doctor, encounter for noneactive August 17, 2024 1:41pm Screening for cervical cancer noneac tive August 17, 2024 1:41pm Essential hypertension noneactive Ju 2024 1:41pm [facility] Work Phone: Hospital Discharge instructions Additional Instructions Please return if you develop worsening shortness of breath, weakness, chest pain or if you lose consciousness.[facility] Work Phone: Reason for referral (narrative)No reason for referral information availableWRegional Medical Center Work Phone: Summary Purpose Family History No Family History Records Found Relationship Condition Age at Onset Recorded Date/T zachary Not Specified Diabetes mellitus Unknown Arthritis Unknown Malignant neoplasm Unknown Hypertension Unknown Relationship Condition Age at Onset Recorded Date/T zachary father Alcoholism Unknown grandfather Alcoholism Unknown Cardiac disease Unknown Hypertension Unknown Hyperlipidemia Unknown Malignant neoplasm Unknown uncle Alcoholism Unknown Arthritis Unknown Age related osteoporosis Unknown grandmother Anxiety Unknown Diabetes mellitus Unknown Disorder of thyroid Unknown Dementia Unknown mother Irritable bowel syndrome Unknown grandmother Malignant neoplasm Unknown Advance Directives No Advanced Directives Records Found Advance Directive Response Recorded Date/ Time Advance Directives No September 02 2:24pm Living Will No January 06 4:56pm Power of Supervisor Inspecting No January 06, 2022 4:56pm Advance Directive Response Recorded Date/ Time Living Will No May 16, 2024 4:20pm Do you have a Healthcare Power of Supervisor Inspecting? No May 16, 2024 4:20pm Do you have a Healthcare Power of Supervisor Inspecting? 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 - PPW SENT August 17, 2024 1 :41pm Reason for Visit Admit Date Establishing care with new doctor, margarette townsend for August 17, 2024 1:41pm Screening for cervical cancer August 17, 2024 1:41pm Essential hypertension August 17, 2024 1: 41pm Additional Source Comments INFORMATION SOURCE (unrecogn ized section and content) DATE CREATED AUTHOR 09/07/2017 [facility] DATE CREATED AUTHOR AUTHOR'S ORGANIZ ATION 05/05/2019 [facility] DATE CREATED AUTHOR AUTHOR'S ORGANIZ ATION 03/16/2020 [facility] DATE CREATED AUTHOR AUTHOR'S ORGANIZ ATION 07/14/2021 [facility] DATE CREATED AUTHOR AUTHOR'S ORGANIZ ATION 09/04/2023 [facility] DATE CREATED AUTHOR AUTHOR'S ORGANIZ ATION 11/18/2024 [facility] Source Comments (unrecognize d section and content) In the event this informatio n is protected by the Federal Confidentiality of Alcohol and Drug Abuse Patient Records regulations: The Federal rules restrict any use of the information to criminally investigate or prosecute any alcohol or drug abuse patient.[facility] the event this information is protected by the Federal Confidentiality of Alcohol and Drug Abuse Patient Records regulations: The Federal rules restrict any use of the information to criminally investigate or prosecute any alcohol or drug abuse patient.[facility] Reason for Visit (unrecogniz ed section and content) Reason Comments Sore Throat Pain rated 8, x3 day s, Gal[place] Shortness of Breath intermittent, denied chest pain, nasal congestion Reason Comments Results Goals (unrecognized section and content) Goals may be documented in a n alternate sectionGoals may be documented in an alternate sectionGoals may be documented in an alternate section Care Teams (unrecognized sec tion and content) Team Status: Active Member Role Status Dates No Primary Care Physician Primary Care Provider Active Team Status: Inactive Member Role Status Dates No Primary Care Physician Primary Care Provider Active Start: May 16, 2024 End: May 16, 2024 Dr. Leonel Aquino MD Attending Provider Active Sta rt: May 16, 2024 End: May 16, 2024 Dr. Leonel Aquino MD Emergency Provider Active Sta rt: May 16, 2024 End: May 16, 2024 Team Status: Inactive Member Role Status Dates No Primary Care Physician Primary Care Provider Active Start: July 04, 2024 End: July 04, 2024 Dr. Marshall Sloan DO Emergency Provider Active Start : July 04, 2024 End: July 04, 2024 Team Status: Active Member Role Status Dates Dr. Rocío Valente MD Primary Care Provider Active Team Status: Inactive Member Role Status Dates No Primary Care Physician Primary Care Provider Active Start: July 04, 2024 End: July 04, 2024 Dr. Marshall Sloan DO Attending Provider Active Start : July 04, 2024 End: July 04, 2024 Dr. Marshall Sloan DO Emergency Provider Active Start : July 04, 2024 End: July 04, 2024 Team Status: Inactive Member Role Status Dates No Primary Care Physician Primary Care Provider Active Start: August 17, 2024 End: August 17, 2024 No Primary Care Physician Referring Provider Active Start: August 17, 2024 End: August 17, 2024 Dr. Rocío Valente MD Attending Provider Active Start: August 17, 2024 End: August 17, 2024 FOR RECORDS PERTAINING TO PATIENTS WHO ARE OR HAVE BEEN ENROLLED IN A CHEMICAL DEPENDENCY/SUBSTANCEABUSE PROGRAM, SOME INFORMATION MAY BE OMITTED. This clinical summary was aggregated from multiple sources. Caution should be exercised in using it in the provision of clinical care. This summary normalizes information from multiple sources, and as a consequence, information in this document may materially change the coding, format and clinical context of patient data. In addition, data may be omitted in some cases. CLINICAL DECISIONS SHOULD BE BASED ON THE PRIMARY CLINICAL RECORDS. [facility]. provides no warranty or guarantee of the accuracy or completeness of information in this document.
[2024-11-22 00:17] VITALS: BP 158/99; PULSE 81; RESP 20; TEMP 36.2; O2SAT 100
--- NOTE | 2024-11-22 00:19 | ED.RN ---
Pt family member angry with staff about no orders being placed. pt stated so is this emergency department different than the rest because nothing is being done RN explained and discussed purpose of emergency department is being available for all patients, but primarily for life threatening events or acute processes. Family member continued to be angry, concerned for pt BP. Explained that pt is in fact hypertensive, but not enough to be treated for a hypertensive crisis. Pt demanding a work note because she had to leave work to come to ED. Also angry an EKG was not done. RN offered to talk to Dr. Aquino about obtaining an EKG and calling respiratory, but pt then denied wanting this. Work note written with verbal instruction by Dr. Aquino. Family member in room angry about the situation, talking loudly in room about not coming back to [facility] ED ever again Family member hit button on wall forcefully as pt and family was leaving department.
== END 2024-11-22 00:22 | disposition home or self-care (01) ==
PROVIDERS: Emergency Provider Emergency Medicine; PCP Internal Medicine; Visit Provider Emergency Medicine
DX: R07.9 Chest pain, unspecified (principal); Z82.49 Family history of ischemic heart disease and other diseases of the circulatory system; R03.0 Elevated blood-pressure reading, without diagnosis of hypertension; Z87.891 Personal history of nicotine dependence; Z90.49 Acquired absence of other specified parts of digestive tract; K21.9 Gastro-esophageal reflux disease without esophagitis
CPT/HCPCS: 99282

== ENCOUNTER 2025-01-15 07:48 | Day surgery (SDC) | payer MEDICAID, SELFPAY ==
--- NOTE | 2025-01-11 15:37 | PAT.ANE_ITS ---
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 When Was Last Pacemaker Check QUESTION #4 FULL TEXT: You/Your Family Experience fever (hyperthermia) with Anesthesia Last Oral Intake Last Oral intake: Last Oral Intake NPO since Meds taken in AM with sips of water? 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 Female Yes 01/11/25 10:40 HX of Motion Sickness Yes 01/11/25 10:40 HX of N/V After Surgery No 01/11/25 10:40 Non-Smoker No 01/11/25 10:40 Duration of Surgery greater No 01/11/25 10:40 than 60 minutes Number of Risk Factors 2 01/11/25 10:40 PONV Score Moderate Risk 01/11/25 10:40 Height & Weight Height & Weight: Anesthesia: Height & Weight Height 5 ft 2 in 12/18/24 13:48 Respiratory Assessment Respiratory Assessment - circus train supervisor: Respiratory Tract Infection Hx - circus train supervisor Hx Respiratory Tract Infection No 01/11/25 10:40 STOP Sleep Apnea STOP Sleep Apnea - circus train supervisor: STOP Sleep Apnea - circus train supervisor Hx Hypertension No 01/11/25 10:40 Hx Sleep Apnea No 01/11/25 10:40 CPAP No 01/11/25 10:40 BIPAP No 01/11/25 10:40 Do you snore loudly (louder No 01/11/25 10:40 than talking or can be heard Do you often feel tired/ No 01/11/25 10:40 fatigued/ sleepy during daytime? Has anyone observed you stop No 01/11/25 10:40 breathing during sleep? STOP Results Negative 01/11/25 10:40 QUESTION #5 FULL TEXT : Do you snore loudly (louder than talking or can be heard through closed doors)? 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 Specify any problems Hx of Preganancy in last 3 No 01/11/25 10:40 Months Nurse Filling Out Transfusion VCHRISTIN 01/11/25 10:40 & Questions: Date: 01/11/25 01/11/25 10:40 Time: 10:41 01/11/25 10:40 Patient unable to answer at this time (ie. 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: /Reproductive Hx- circus train supervisor Hx Now No 01/11/25 10:40 Gestational Age (in weeks): EDC: Hx Hx Para Hx Section SAB No 01/11/25 10:40 [facility] Medical History (Updated 01/11/25 @ 10:40 by Rhonda Stover) Wears glasses Depression Anxiety Marijuana use Alcohol use Back pain Gastric reflux Smoker Vapes nicotine containing substance Chronic cough Hypertension Nausea GERD (gastroesophageal reflux disease) Neck pain Diarrhea Migraines Fatigue Shoulder pain Home Medications Medication Instructions Recorded Last Taken Type yeegtpt-kfpdcwhrcsocy-fqdhmgut 250 1 tab PO Q4-6H PRN pain 08/17/24 Unknown History mg-250 mg-65 mg tablet (Excedrin Extra Strength) aripiprazole 5 mg tablet (Abilify) 5 mg PO QHS #30 tab s 11/16/24 Unknown Rx escitalopram oxalate 10 mg tablet 10 mg PO QDAY #30 ta bs 11/16/24 Unknown Rx (Lexapro) rabeprazole 20 mg tablet,delayed 20 mg PO QDAY #30 tab s 11/16/24 Unknown Rx release hydrochlorothiazide 12.5 mg tablet 12.5 mg PO QAM #90 tabs 01/10/25 Unknown Rx cholecalciferol (vitamin D3) 25 25 mcg PO DAILY Unknown History mcg (1,000 unit) capsule (Vitamin D3) ferrous gluconate 324 mg (38 mg 324 mg PO DAILY 01/07/25 History iron) tablet Allergy/AdvReac Type Severity Reaction Status Date / Time No Known Allergies Allergy Verified 01/11/25 10:31 Family History Father Alcoholism Grandfather Alcoholism Heart disease Hypertension Hyperlipidemia Cancer melanoma Uncle Alcoholism Grandfather Alcoholism Arthritis Cancer colon Heart disease Hypertension Hyperlipidemia Age related osteoporosis Grandmother Anxiety Arthritis Diabetes Hypertension Hyperlipidemia Age related osteoporosis Thyroid disorder Dementia Mother IBS (irritable bowel syndrome) Grandmother Cancer cervical Diabetes Hypertension Hyperlipidemia Surgical History (Updated 01/11/25 @ 10:40 by Rhonda Stover) History of skin surgery History of cholecystectomy Social History adopted: No household members: spouse number of children: 0 current occupational status: unemployed pets and animals: Yes (2) pets and animals: dog(s) sexually active: Yes Smoking Status: Current every day smoker tobacco type: e-cigarettes Tobacco: How many years used: 10 Smokeless tobacco user: chewing tobacco alcohol intake: current alcohol intake frequency: holidays/special occasions only Alcohol type: beer, wine and hard liquor details: >3 in 1 sitting substance use type: marijuana caffeine: Yes (2) Type: carbonated beverages frequency: 1-2 times per week do you feel safe at home: Yes Audit: Pertinent Findings Pertinent Findings EKG Perinent findings: June 10, 2015. Sinus tachycardia at 118 bpm. Nonspecific T wave abnormality. Recommendation Anesthesia Recommendation Anesthesia recommendation: OPTIMIZED for anesthesia (If patient is heart rate is elevated on day of surgery then patient needs a repeat EKG.)
[2025-01-15] VITALS (7 sets, daily range): BP systolic 98–136; BP diastolic 58–80; PULSE 64–75; RESP 16; TEMP 36.3–36.5; O2SAT 93–98; BMI 51.2
--- NOTE | 2025-01-15 07:25 | PCM.HP.BLA ---
History and Physical Date of Admission: 01/15/25 Date of Service: 12/18/24 MR#: [id number] Acct: [id number] Name: MELLY HINKLE Rep #: [id number] : 2000 Provider: Dr. Nallely Gutiérrez MD Age/Sex: 24/F Location: [facility] Status: Signed Intake Vital Signs 11/21/2522:28 12/18/2512:48 Height 5 ft 2 in 5 ft 2 in Weight: 290 lb 6 oz BMI 53.1 BP 112/72 Blood Pressure Location Rt brachial Position Sitting Respiration 18 Pulse 74 Pulse Source Monitor Temp 97.2 F L Temp Source Temporal Pulse Oximetry (%) 99 Oxygen Delivery Method room air Intake Visit Reasons: Gastroesophageal reflux disease (GERD) Chief Complaint: GERD Accompanied by: Friend Is patient in pain?: No Allergies No Known Allergies Allergy (Verified 12/18/24 13:48) Medications Medication Instructions Recorded Confirmed Type rvcgvee-wjyevsnykavhe-lkeqrfed 250 1 tab PO Q4-6H PRN 08/17/24 12/18/24 History mg-250 mg-65 mg tablet (Excedrin Extra Strength) hydrochlorothiazide 12.5 mg tablet 12.5 mg PO QAM #90 tabs 10/02/24 12/18/24 Rx aripiprazole 5 mg tablet (Abilify) 5 mg PO QHS #30 tabs 11/16/24 12/18/24 Rx escitalopram oxalate 10 mg tablet 10 mg PO QDAY #30 tabs 11/16/24 12/18/24 Rx (Lexapro) rabeprazole 20 mg tablet,delayed 20 mg PO QDAY #30 tabs 11/16/24 12/18/24 Rx release PFSH Medical History (Updated 12/18/24 @ 14:[address] Nallely Gutiérrez MD) Nausea GERD (gastroesophageal reflux disease) Neck pain Diarrhea Migraines Fatigue Shoulder pain Surgical History History of skin surgery History of cholecystectomy Family History Father Alcoholism Grandfather Alcoholism Heart disease Hypertension Hyperlipidemia Cancer melanoma Uncle Alcoholism Grandfather Alcoholism Arthritis Cancer colon Heart disease Hypertension Hyperlipidemia Age related osteoporosis Grandmother Anxiety Arthritis Diabetes Hypertension Hyperlipidemia Age related osteoporosis Thyroid disorder Dementia Mother IBS (irritable bowel syndrome) Grandmother Cancer cervical Diabetes Hypertension Hyperlipidemia Social History adopted: No household members: spouse number of children: 0 current occupational status: unemployed pets and animals: Yes (2) pets and animals: dog(s) sexually active: Yes Smoking Status: Former smoker quit date: 06/13/24 Tobacco: How many years used: 10 Smokeless tobacco user: chewing tobacco alcohol intake: current alcohol intake frequency: holidays/special occasions only Alcohol type: beer, wine and hard liquor details: >3 in 1 sitting substance use type: marijuana caffeine: Yes (2) Type: carbonated beverages frequency: 1-2 times per week do you feel safe at home: Yes HPI HPI HPI: 24-year-old female presents due to reflux. Patient states she has had this for about 10 years. Patient had laparoscopic cholecystectomy at 13 years old. Patient states she has been on various medications for reflux including generic Nexium 20 mg p.o. daily and then more recently Protonix 40 mg p.o. daily however that did stop working and currently she is on Aciphex which is controlling her symptoms for the last few weeks. Patient states her previous symptoms were epigastric burning upper esophagus as well. Along with nausea and vomiting. Patient never had previous EGD. ROS General General: Yes weight change and fatigue; No appetite, colon cancer, breast cancer or weakness HEENT HEENT: No difficulty swallowing, eye injury, eye surgery, swollen glands or hoarseness Endo Endocrine: No thyroid disease, diabetes mellitus, thyroid cancer, Hair loss, heat intolerance or cold intolerance Skin Skin: No rash or changing moles Musc Musculoskeletal: No back problems, arthritis, rheumatoid arthritis, gout or joint pain Cardio Cardiovascular: Yes high blood pressure; No murmur, pacemaker, heart disease, atrial fibrillation, heart attack, heart stent, palpitations, shortness of breath with exertion or chest pain Psych Psychiatric: Yes depression and anxiety; No hearing voices Resp Respiratory: No shortness of breath, No sleep apnea, No cough, No COPD, No asthma, No emphysema and No wheezing Gastro Gastrointestinal: No abdominal pain, Yes nausea or vomiting, No diarrhea, No constipation, No blood in stool, Yes acid reflux, No hemorrhoids, No ulcers, No gallbladder problem and No black,tarry stools [place] Hematologic: No blood thinners, No blood disorders, No bleeding, No anemia and No blood clots Neuro Neurologic: Yes numbness, Yes tingling and No weakness Exam Const General: cooperative, comfortable and no acute distress Nutritional Appearance: obese HENMT Head: normocephalic and atraumatic Neck Neck: supple Resp Effort & Inspection: normal respiratory effort Cardio Rate: regular rate GI Inspection: non-distended Palpation: soft and nontender Skin General: no rashes or lesions noted Neuro General: CN's II-XI intact bilaterally Extrem General: normal to inspection Psych Mental Status: mental status grossly normal Attitude: cooperative Assessment and Plan Assessment and Plan (1) Gastroesophageal reflux disease: Status: Acute Plan I have discussed the above with the patient. I have offered the patient esophagogastroduodenoscopy for evaluation. I have explained the risks/benefits of the procedure and described the procedure. I have discussed the risks with the patient, including but not limited to: infection, bleeding, perforation of the GI tract requiring emergency surgery, inability to complete the procedure, injury to any internal organs, complications of anesthesia, etc. - the patient understands and agrees to proceed. I have answered all the patient's questions to the patient's satisfaction and the patient has no further questions. Nallely Gutiérrez M.D. Pager: [phone] [facility] [address] [place] [address], [address] [place] [id number] Office: [phone] Coding Level of Care Code Off vis,new,level 3 Diagnoses Gastroesophageal reflux disease K21.9 12/18/24 1401 <Electronically signed by Nallely Gutiérrez MD> Date Nallely Gutiérrez MD
[2025-01-15] MEDS: Lactated Ringers 1,000 ML 15 ML IV (08:00)
--- NOTE | 2025-01-15 08:08 | PRE.ANES_ITS ---
ASA Classification* ASA Classification ASA Classification: 2 Assessment & Plan Anesthesia* Anesthesia Assessment Anesthesia Assessment: Discussed sedation and/or anesthesia options, risks, benefits, and alternatives with patient/parents/legal guardian/POA. Questions invited. The patient/parents/legal guardian/POA seems to understand and agrees to proceed with anesthesia plan. Reviewed the physical assessment, medical history, allergy history and patient home medications list prior to surgery/procedure/anesthetic and documented any changes. Performed airway and anesthesia risk assessments. Anesthesia Type Anesthesia Type: MAC Anesthesia Focused Assessment* Airway Assessment Mouth opens: >3 cm Mallampati Score: II Labs Anesthesia Preop lab: CBC WBC, (4.4-11.0) 9.2 K/mm3 09/28/24, :18 RBC, (4.2-5.4) 4.27 M/mm3 09/28/24, :18 Hgb, (12.0-15.0) 10.8 g/dL L 09/28/24, :18 Hct, (37-47) 34.0 % L 09/28/24, :18 Plt Count, (150-450) 350 K/mm3 09/28/24, :18 CHEMISTRY Potassium, (3.3-5.1) 4.1 mmol/L 09/28/24, 09:18 Sodium, (133-145) 136 mmol/L 09/28/24, 09:18 BUN, (4-19) 11 mg/dL 09/28/24, :18 Creatinine, (0.70-1.20) 0.88 mg/dL 09/28/24, 09:18 Glucose, (70-99) 110 mg/dL H 09/28/24, 09:18 POC Glucose, (74-106) 134 mg/dL H 05/16/24, 15:14 TSH, (0.300-4.200) 0.577 uIU/mL 09/28/24, :18 COAG Urine Test Negative Negative 10/24/22, 21:40 Tst Clinic Negative 08/28/19, 13:14 Pre-Assessment Diagnosis/Proposed Procedure Planned Operative Procedure(s): EGD Anesthesia History 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 When Was Last Pacemaker Check QUESTION #4 FULL TEXT: You/Your Family Experience fever (hyperthermia) with Anesthesia Last Oral Intake Last Oral intake: Last Oral Intake NPO since Meds taken in AM with sips of water? Meds patient instructed to take am of surgery PONV PONV - professor of religion: PONV - professor of religion Female Yes 01/11/25 10:40 HX of Motion Sickness Yes 01/11/25 10:40 HX of N/V After Surgery No 01/11/25 10:40 Non-Smoker No 01/11/25 10:40 Duration of Surgery greater No 01/11/25 10:40 than 60 minutes Number of Risk Factors 2 01/11/25 10:40 PONV Score Moderate Risk 01/11/25 10:40 Height & Weight Height & Weight: Anesthesia: Height & Weight Height 5 ft 2 in 12/18/24 13:48 Respiratory Assessment Respiratory Assessment - professor of religion: Respiratory Tract Infection Hx - professor of religion Hx Respiratory Tract Infection No 01/11/25 10:40 STOP Sleep Apnea STOP Sleep Apnea - professor of religion: STOP Sleep Apnea - professor of religion Hx Hypertension No 01/11/25 10:40 Hx Sleep Apnea No 01/11/25 10:40 CPAP No 01/11/25 10:40 BIPAP No 01/11/25 10:40 Do you snore loudly (louder No 01/11/25 10:40 than talking or can be heard Do you often feel tired/ No 01/11/25 10:40 fatigued/ sleepy during daytime? Has anyone observed you stop No 01/11/25 10:40 breathing during sleep? STOP Results Negative 01/11/25 10:40 QUESTION #5 FULL TEXT : Do you snore loudly (louder than talking or can be heard through closed doors)? 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 Specify any problems Hx of Preganancy in last 3 No 01/11/25 10:40 Months Nurse Filling Out Transfusion VCHRISTIN 01/11/25 10:40 & Questions: Date: 01/11/25 01/11/25 10:40 Time: 10:41 01/11/25 10:40 Patient unable to answer at this time (ie. confused, unrespo /Reproduction History /Reproductive History - professor of religion: /Reproductive Hx- professor of religion Hx Now No 01/11/25 10:40 Gestational Age (in weeks): EDC: Hx Hx Para Hx Section SAB No 01/11/25 10:40 Active Medications Active Medications: Current Medications Generic Name Dose Route Start Last Admin Trade Name Freq PRN Reason Stop Dose Admin Lactated Ringer's 1,000 mls @ 15 mls/hr 01/15/25 08:00 IV .Q48H JAUN PFSH Medical History Wears glasses Depression Anxiety Marijuana use Alcohol use Back pain Gastric reflux Smoker Vapes nicotine containing substance Chronic cough Hypertension Nausea GERD (gastroesophageal reflux disease) Neck pain Diarrhea Migraines Fatigue Shoulder pain Home Medications Medication Instructions Recorded Last Taken Type hpxysqm-wsrycdfdvvbjg-tbcjaupr 250 1 tab PO Q4-6H PRN pain 08/17/24 Unknown History mg-250 mg-65 mg tablet (Excedrin Extra Strength) aripiprazole 5 mg tablet (Abilify) 5 mg PO QHS #30 tab s 11/16/24 Unknown Rx escitalopram oxalate 10 mg tablet 10 mg PO QDAY #30 ta bs 11/16/24 Unknown Rx (Lexapro) rabeprazole 20 mg tablet,delayed 20 mg PO QDAY #30 tab s 11/16/24 Unknown Rx release hydrochlorothiazide 12.5 mg tablet 12.5 mg PO QAM #90 tabs 01/10/25 Unknown Rx cholecalciferol (vitamin D3) 25 25 mcg PO DAILY Unknown History mcg (1,000 unit) capsule (Vitamin D3) ferrous gluconate 324 mg (38 mg 324 mg PO DAILY 01/07/25 History iron) tablet Allergy/AdvReac Type Severity Reaction Status Date / Time No Known Allergies Allergy Verified 01/11/25 10:31 Family History Father Alcoholism Grandfather Alcoholism Heart disease Hypertension Hyperlipidemia Cancer melanoma Uncle Alcoholism Grandfather Alcoholism Arthritis Cancer colon Heart disease Hypertension Hyperlipidemia Age related osteoporosis Grandmother Anxiety Arthritis Diabetes Hypertension Hyperlipidemia Age related osteoporosis Thyroid disorder Dementia Mother IBS (irritable bowel syndrome) Grandmother Cancer cervical Diabetes Hypertension Hyperlipidemia Surgical History History of skin surgery History of cholecystectomy Social History adopted: No household members: spouse number of children: 0 current occupational status: unemployed pets and animals: Yes (2) pets and animals: dog(s) sexually active: Yes Smoking Status: Current every day smoker tobacco type: e-cigarettes Tobacco: How many years used: 10 Smokeless tobacco user: chewing tobacco alcohol intake: current alcohol intake frequency: holidays/special occasions only Alcohol type: beer, wine and hard liquor details: >3 in 1 sitting substance use type: marijuana caffeine: Yes (2) Type: carbonated beverages frequency: 1-2 times per week do you feel safe at home: Yes Review of Systems (Anesthesia) ROS Narrative System reviewed and no additional complaints, except as documented.
[2025-01-15 08:16] LABS: Internal QC Validated? YES +Cl - CLEAR BKGD; Pregnancy, Urine Negative Negative; Record Kit Lot#,Urine Preg 980607
--- OUTSIDE RECORDS SUMMARY | 2025-01-15 08:19 | XMS RPT_ITS | CCD ---
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 [Mass/Vol] 0.34 mg/dL Normal 0.00-1.30 [facility] Comment on above: Performed By: #### L 506.1001, L503.6030, L500.4050, L100.0100, L501.9520, L503.6550 #### [facility] [address] [place], [address] BUN/CRE 12.5 RATIO Normal 10-20 [facility] Comment on above: Performed By: #### L 506.1001, L503.6030, L500.4050, L100.0100, L501.9520, L503.6550 #### [facility] [address] [place], [address] Calcium [Mass/Vol] 9.3 mg/dL Normal 7.6-11.0 [facility] Comment on above: Performed By: #### L 506.1001, L503.6030, L500.4050, L100.0100, L501.9520, L503.6550 #### [facility] [address] [place], [address] Chloride [Moles/Vol] 100 mmol/L Normal 98-108 [facility] Comment on above: Performed By: #### L 506.1001, L503.6030, L500.4050, L100.0100, L501.9520, L503.6550 #### [facility] [address] [place], [address] CO2 [Moles/Vol] 24.3 mmol/L Normal 21.0-32.0 [facility] Comment on above: Performed By: #### L 506.1001, L503.6030, L500.4050, L100.0100, L501.9520, L503.6550 #### [facility] [address] [place], [address] Creatinine [Mass/Vol] 0.88 mg/dL Normal 0.70-1.20 [facility] Comment on above: Performed By: #### L 506.1001, L503.6030, L500.4050, L100.0100, L501.9520, L503.6550 #### [facility] [address] [place], [address] GAP 12 Normal 5-15 [facility] Comment on above: Performed By: #### L 506.1001, L503.6030, L500.4050, L100.0100, L501.9520, L503.6550 #### [facility] [address] [place], [address] GFR/1.73 sq M.predicted among non-blacks MDRD (S/P/Bld) [Vol rate/Area] 94 mL/min/{1.73_m2} Normal >60 [facility] Comment on above: Result Comment: mL/m in/1.73m2 CKD-EPI Creatinine Equation (2020) Performed By: #### L 506.1001, L503.6030, L500.4050, L100.0100, L501.9520, L503.6550 #### [facility] [address] [place], [address] Globulin (S) [Mass/Vol] 3.2 g/dL Normal 2.2-4.2 [facility] Comment on above: Performed By: #### L 506.1001, L503.6030, L500.4050, L100.0100, L501.9520, L503.6550 #### [facility] [address] [place], [address] Glucose [Mass/Vol] 110 mg/dL High 70-99 [facility] Comment on above: Performed By: #### L 506.1001, L503.6030, L500.4050, L100.0100, L501.9520, L503.6550 #### [facility] [address] [place], [address] Potassium [Moles/Vol] 4.1 mmol/L Normal 3.3-5.1 [facility] Comment on above: Performed By: #### L 506.1001, L503.6030, L500.4050, L100.0100, L501.9520, L503.6550 #### [facility] [address] [place], [address] Sodium [Moles/Vol] 136 mmol/L Normal 133-145 [facility] Comment on above: Performed By: #### L 506.1001, L503.6030, L500.4050, L100.0100, L501.9520, L503.6550 #### [facility] [address] [place], [address] T PROT 7.0 g/dL Normal 5.9-8.4 [facility] Comment on above: Performed By: #### L 506.1001, L503.6030, L500.4050, L100.0100, L501.9520, L503.6550 #### [facility] [address] [place], [address] Urea nitrogen [Mass/Vol] 11 mg/dL Normal 4-19 [facility] Comment on above: Performed By: #### L 506.1001, L503.6030, L500.4050, L100.0100, L501.9520, L503.6550 #### [facility] [address] [place], [address] Ferritinon 09-28-2024 Ferritin [Mass/Vol] 16 ng/mL Low 22-378 [facility] Comment on above: Performed By: #### L 506.1001, L503.6030, L500.4050, L100.0100, L501.9520, L503.6550 #### [facility] [address] [place], [address] Iron+Iron Binding Capacityon 09-28-2024 Iron [Mass/Vol] 28 ug/dL Low 50-170 [facility] Comment on above: Performed By: #### L 506.1001, L503.6030, L500.4050, L100.0100, L501.9520, L503.6550 #### [facility] [address] [place], [address] IRON SATURATION 9.0 Low 13-59 [facility] Comment on above: Performed By: #### L 506.1001, L503.6030, L500.4050, L100.0100, L501.9520, L503.6550 #### [facility] [address] [place], [address] TIBC 328 ug/dL Normal 250-450 [facility] Comment on above: Performed By: #### L 506.1001, L503.6030, L500.4050, L100.0100, L501.9520, L503.6550 #### [facility] [address] [place], [address] UIBC 300 ug/dL Normal 228-428 [facility] Comment on above: Performed By: #### L 506.1001, L503.6030, L500.4050, L100.0100, L501.9520, L503.6550 #### [facility] [address] [place], [address] Thyroid Stim Hormone (TSH)on 09-28-2024 TSH 0.577 uIU/mL Normal 0.300-4.200 [facility] Comment on above: Performed By: #### L 506.1001, L503.6030, L500.4050, L100.0100, L501.9520, L503.6550 #### [facility] [address] [place], [address] Vitamin D,25 Hydroxyon 09-28 Vitamin D 25-OH 29.8 ng/mL Low 30-100 [facility] Comment on above: Result Comment: Adelina min D Status Deficiency: <20 ng/mL (50nmol/L) Insufficiency: 20-30 ng/mL (50-75 nmol/L) Sufficiency: 30-100 ng/mL (75-250 nmol/L) Toxicity: >100 ng/mL (>250 nmol/L) Performed By: #### L 506.1001, L503.6030, L500.4050, L100.0100, L501.9520, L503.6550 #### [facility] [address] [place], [address] Internal Medicine Office Vis nahum 09-27-2024 Internal Medicine Office Visit [facility] [address] [place], [place] [address] OFFICE VISIT Date of Service: 09/28/24 MR#: [id number] Acct: [id number] Name: MELLY HINKLE Rep #: [id number] : 2000 Provider: Dr. 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 [facility] Medical History GERD (gastroesophageal reflux disease) Neck [...] the re (more content not included)... Normal [facility] Office Visit Reporton 2024 Office Visit Report [facility] [address] [place] [address] OFFICE VISIT Date of Service: 08/31/24 MR#: [id number] Acct: [id number] Patient: MELLY HINKLE Rep #: [id number] : 2000 Provider: DEMETRI NURSE Age/Sex: 24/F [place] [facility] Status: Signed Intake Vital Signs 08/17/24 13:57 [...] 08:32) Medications ???Medication ???Instructions ???Recorded ???Confirmed ???Type cvfxdvh-hbhgigkybupkz-thc feine 250 1 tab PO Q4-6H PRN [...] hypertension: 08/31/24 1556 Date Rocío Valente MD Cosselina Signature: Date (if applicable) CC: Normal [facility] Internal Medicine Office Vis iton 08-17-2024 Internal Medicine Office Visit [facility] [address] [place] [address] OFFICE VISIT Date of Service: 08/17/24 MR#: [id number] Acct: [id number] Name: MELLY HINKLE Rep #: [id number] : 2000 Provider: Dr. 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 [facility] Medical History GERD (gastroesophageal reflux disease) Neck [...] you feel safe at home: Yes Questionnaire H-9 BMS Over the last 2 weeks, how [...] and colleagues, with an educational nellie from [employer] TOM-7 BMS TOM-7 Feeling nervous, anxious, or on edge: 1 = Several days Not being able to stop or control worryin = Nearly every day Worrying too much about different things: 3 = Nearly every day Trouble relaxin = More than half the days B (more content not included)... Normal [facility] Emergency Department Summary on 07-04-2024 Emergency Department Summary [facility] Medical Records Department [address] [place] [address] Emergency Department Summary 07/04/24 MR#: [id number] Acct: [id number] Name: MELLY HINKLE Rep #: [id number] : 2000 24 From: Marshall White PCP: Care Physician,No Primary Status:DEP ER Location: ED HPI History of Present Illness Chief Complaint: Headache Informant: patient Narrative Narrative: Intermittent migraine headaches for last week more persistent over the last 2 days. Symptoms on the right side. Photophobia and phonophobia.Denies trauma denies fevers. Using hslo-sif-ootenyb aspirin powder that has caffeine no relief. [...] clinician: N/A This note was generated with [employer] dictation software. It may contain incorrect words, spelling, and punctuation that were not noted in checking the note before signing. Discharge Plan Triage Chief Complaint: Headache ED Provider: Marshall Sloan Dx/Rx/DC Orders Clinical Impression: Headache, migraine Instructions: (more content not included)... Normal [facility] Absolute lymphocyte countOrd ered By: Leonel Aquino on 05-16-2024 Lymphocytes Auto (Unsp spec) [#/Vol] 1.65 10*3/uL 0.83-4.51 [facility] Absolute neutrophil countOrd ered By: Leonelhosea Aquino on 05-16-2024 Neutrophils (Bld) [#/Vol] 2.8 10*3/uL 2.0-7.7 [facility] Anion gap in Serum or Plasma Ordered By: Leonel Aquino on 05-16-2024 Anion gap [Moles/Vol] 10 mmol/L 5-15 [facility] Automated lymphocyte count a s percentage of total leukocytesOrdered By: Leonel Aquino on 05-16-2024 Lymphocytes/100 WBC Auto (Unsp spec) 32.6 % 19-41 [facility] BUN/creatinine ratioOrdered By: Leonel Aquino on 05-16-2024 Urea nitrogen/Creatinine [Mass ratio] 15.8 mg/mg 10-20 [facility] Basophil percentageOrdered B y: Leonel Aquino on 05-16-2024 Basophils/100 WBC (Bld) 0.4 % 0-[address] [facility] Bedside Glucoseon 05-16-2024 FINGERSTICK GLU 134 mg/dL High 74-106 [facility] Comment on above: Result Comment: SHANITA BRADSHAW OF PATIENT CARE PER NURSING PROTOCOL Performed By: #### L 501.080 #### [facility] [address] [place], [address] Bilirubin Test strip Ql (U)O rdered By: Leonel Clintono on 05-16-2024 Bilirubin Ql (U) Negative Negative [facility] Bilirubin, totalOrdered By: Leonelhosea Clintono on 05-16-2024 Bilirubin [Mass/Vol] 0.30 mg/dL 0.00-1.30 [facility] CBC W/Diff, Automatedon Absolute Lymph 1.65 X10 3/uL Normal 0.83-4.51 [facility] Comment on above: Performed By: #### L 100.0100, L500.4050 #### [facility] [address] [place], [address] Absolute Neut 2.8 X10 3/uL Normal 2.0-7.7 [facility] Comment on above: Performed By: #### L 100.0100, L500.4050 #### [facility] [address] [place], [address] Basophils/100 WBC (Bld) 0.4 % Normal 0-[address] [facility] Comment on above: Performed By: #### L 100.0100, L500.4050 #### [facility] [address] [place], [address] Eosinophils/100 WBC (Bld) 2.4 % Normal 0-5 [facility] Comment on above: Performed By: #### L 100.0100, L500.4050 #### [facility] [address] [place], [address] Erythrocyte distribution width (RBC) [Ratio] 17.2 % High 11.6-14.6 [facility] Comment on above: Performed By: #### L 100.0100, L500.4050 #### [facility] [address] [place], [address] Hematocrit (Bld) [Volume fraction] 36.4 % Low 37-47 [facility] Comment on above: Performed By: #### L 100.0100, L500.4050 #### [facility] [address] [place], [address] Hemoglobin (Bld) [Mass/Vol] 11.5 g/dL Low 12.0-15.0 [facility] Comment on above: Performed By: #### L 100.0100, L500.4050 #### [facility] [address] [place], [address] IG% 0.200 Normal 0.0-0.9 [facility] Comment on above: Result Comment: IG% - Immature Granulocytes (promyelocytes, myelocytes and metamyelocytes) > 1% indicates that a LEFT SHIFT is Present. Performed By: #### L 100.0100, L500.4050 #### [facility] [address] [place], [address] Lymphocytes/100 WBC (Bld) 32.6 % Normal 19-41 [facility] Comment on above: Performed By: #### L 100.0100, L500.4050 #### [facility] [address] [place], [address] MCH (RBC) [Entitic mass] 24.4 pg Low 27.0-32.0 [facility] Comment on above: Performed By: #### L 100.0100, L500.4050 #### [facility] [address] [place], [address] MCHC (RBC) [Mass/Vol] 31.6 g/dL Low 32-36 [facility] Comment on above: Performed By: #### L 100.0100, L500.4050 #### [facility] [address] [place], [address] MCV (RBC) [Entitic vol] 77.1 fL Low 81-99 [facility] Comment on above: Performed By: #### L 100.0100, L500.4050 #### [facility] [address] [place], [address] Monocytes/100 WBC (Bld) 8.7 % Normal 0-10 [facility] Comment on above: Performed By: #### L 100.0100, L500.4050 #### [facility] [address] [place], [address] Neutrophils/100 WBC (Bld) 55.7 % Normal 47-70 [facility] Comment on above: Performed By: #### L 100.0100, L500.4050 #### [facility] [address] [place], [address] Nucleated RBC (Bld) [#/Vol] 0 10*3/uL Normal 0-5 [facility] Comment on above: Performed By: #### L 100.0100, L500.4050 #### [facility] [address] [place], [address] Platelet mean volume (Bld) [Entitic vol] 9.4 fL Normal 6.2-12.0 [facility] Comment on above: Performed By: #### L 100.0100, L500.4050 #### [facility] [address] [place], [address] Platelets (Bld) [#/Vol] 316 10*3/uL Normal 150-450 [facility] Comment on above: Performed By: #### L 100.0100, L500.4050 #### [facility] [address] [place], [address] RBC (Bld) [#/Vol] 4.72 10*6/uL Normal 4.2-5.4 [facility] Comment on above: Performed By: #### L 100.0100, L500.4050 #### [facility] [address] [place], [address] RDW SD 48.3 fl High 35.1-43.9 [facility] Comment on above: Performed By: #### L 100.0100, L500.4050 #### [facility] [address] [place], [address] WBC (Bld) [#/Vol] 5.1 10*3/uL Normal 4.4-11.0 [facility] Comment on above: Performed By: #### L 100.0100, L500.4050 #### [facility] [address] [place], [address] Carbon dioxide, total [Moles /volume] in Central venous bloodOrdered By: Leonel Aquino on 05-16-2024 CO2 [Moles/Vol] 23.2 mmol/L 21.0-32.0 [facility] Chloride assayOrdered By: Netta Aquino on 05-16-2024 Chloride [Moles/Vol] 104 mmol/L 98-108 [facility] Comprehensive Metabolic Prof ilon 05-16-2024 Albumin [Mass/Vol] 4.0 g/dL Normal 3.5-5.0 [facility] Comment on above: Performed By: #### L 100.0100, L500.4050 #### [facility] [address] [place], [address] Albumin/Globulin [Mass ratio] 1.2 {ratio} Normal 0.9-2.4 [facility] Comment on above: Performed By: #### L 100.0100, L500.4050 #### [facility] [address] [place], [address] ALK PHOS 69 U/L Normal 35-104 [facility] Comment on above: Performed By: #### L 100.0100, L500.4050 #### [facility] [address] [place], [address] ALT [Catalytic activity/Vol] 22 U/L Normal <=34 [facility] Comment on above: Performed By: #### L 100.0100, L500.4050 #### [facility] [address] [place], [address] AST [Catalytic activity/Vol] 20 U/L Normal <=31 [facility] Comment on above: Performed By: #### L 100.0100, L500.4050 #### [facility] [address] [place], [address] Bilirubin [Mass/Vol] 0.30 mg/dL Normal 0.00-1.30 [facility] Comment on above: Performed By: #### L 100.0100, L500.4050 #### [facility] [address] [place], [address] BUN/CRE 15.8 RATIO Normal 10-20 [facility] Comment on above: Performed By: #### L 100.0100, L500.4050 #### [facility] [address] [place], [address] Calcium [Mass/Vol] 9.4 mg/dL Normal 7.6-11.0 [facility] Comment on above: Performed By: #### L 100.0100, L500.4050 #### [facility] [address] [place], [address] Chloride [Moles/Vol] 104 mmol/L Normal 98-108 [facility] Comment on above: Performed By: #### L 100.0100, L500.4050 #### [facility] [address] [place], [address] CO2 [Moles/Vol] 23.2 mmol/L Normal 21.0-32.0 [facility] Comment on above: Performed By: #### L 100.0100, L500.4050 #### [facility] [address] [place], [address] Creatinine [Mass/Vol] 0.77 mg/dL Normal 0.70-1.20 [facility] Comment on above: Performed By: #### L 100.0100, L500.4050 #### [facility] [address] [place], [address] ECRCL 146.45 ml/min Normal 50-250 [facility] Comment on above: Performed By: #### L 100.0100, L500.4050 #### [facility] [address] [place], [address] GAP 10 Normal 5-15 [facility] Comment on above: Performed By: #### L 100.0100, L500.4050 #### [facility] [address] [place], [address] GFR/1.73 sq M.predicted among non-blacks MDRD (S/P/Bld) [Vol rate/Area] 109 mL/min/{1.73_m2} Normal >60 [facility] Comment on above: Result Comment: mL/m in/1.73m2 CKD-EPI Creatinine Equation (2020) Performed By: #### L 100.0100, L500.4050 #### [facility] [address] [place], [address] Globulin (S) [Mass/Vol] 3.4 g/dL Normal 2.2-4.2 [facility] Comment on above: Performed By: #### L 100.0100, L500.4050 #### [facility] [address] [place], [address] Glucose [Mass/Vol] 127 mg/dL High 70-99 [facility] Comment on above: Performed By: #### L 100.0100, L500.4050 #### [facility] [address] [place], [address] Potassium [Moles/Vol] 4.1 mmol/L Normal 3.3-5.1 [facility] Comment on above: Performed By: #### L 100.0100, L500.4050 #### [facility] [address] [place], [address] Sodium [Moles/Vol] 137 mmol/L Normal 133-145 [facility] Comment on above: Performed By: #### L 100.0100, L500.4050 #### [facility] [address] [place], [address] T PROT 7.5 g/dL Normal 5.9-8.4 [facility] Comment on above: Performed By: #### L 100.0100, L500.4050 #### [facility] [address] [place], [address] Urea nitrogen [Mass/Vol] 12 mg/dL Normal 4-19 [facility] Comment on above: Performed By: #### L 100.0100, L500.4050 #### [facility] [address] [place], [address] Emergency Department Summary on 05-16-2024 Emergency Department Summary [facility] Medical Records Department [address] [place] [address] Emergency Department Summary 05/16/24 MR#: [id number] Acct: [id number] Name: MELLY HINKLE Rep #: [id number] : 2000 From: Leonel Aquino MD PCP: [...] similar symptoms: No Recent Illness/Hospitalization: No PFSH [facility] Medical History Physical exam, pre-employment Neck [...] no l (more content not included)... Normal [facility] Eosinophil percentageOrdered By: Leonel Aquino on 05-16-2024 Eosinophils/100 WBC (Bld) 2.4 % 0-5 [facility] Epithelial cells.squamous LM Ql (Urine sed)Ordered By: Leonel Aquino on 05-16-2024 Epithelial cells.squamous LM.HPF (Urine sed) [#/Area] 0 /[HPF] 5-10 [facility] Erythrocyte distribution wid th (RBC) [Ratio]Ordered By: Leonel Aquino on 05-16-2024 Erythrocyte distribution width (RBC) [Entitic vol] 48.3 fL High 35.1-43.9 [facility] Erythrocyte distribution wid th ratioOrdered By: Leonelhosea Aquino on 05-16-2024 Erythrocyte distribution width (RBC) [Ratio] 17.2 % High 11.6-14.6 [facility] Erythrocyte distribution wid th standard deviationOrdered By: Leonel Aquino on 05-16-2024 Erythrocyte distribution width (RBC) [Ratio] 48.3 fl High 35.1-43.9 [facility] Estimation of creatinine lauren aranceOrdered By: Leonel Aquino on 05-16-2024 Estimated Creatinine Clearance Calc 146.45 ml/min 50-250 [facility] GFR/1.73 sq M.predicted remy g non-blacks MDRD (S/P/Bld) [Vol rate/Area]Ordered By: Leonel Aquino on 05-16-2024 Estimated GFR (MDRD) Non-Af Amer 109 >60 [facility] Comment on above: mL/min/1.73m2 CKD-EP I Creatinine Equation (2020) Glomerular filtration rate ( GFR) estimation/1.73 sq m using serum, plasma, or whole bOrdered By: Leonel Aquino on 05-16-2024 GFR/1.73 sq M.predicted among non-blacks MDRD (S/P/Bld) [Vol rate/Area] 109 mL/min/{1.73_m2} >60 [facility] Comment on above: mL/min/1.73m2 CKD-EP I Creatinine Equation (2020) Glucose Ql (U)Ordered By: Netta Aquino on 05-16-2024 Urine Glucose (UA) Normal mg/dl Normal [facility] Glucose measurement at bedsi deOrdered By: Leonel Aquino on 05-16-2024 Bedside Glucose (Misc Panel) 134 mg/dL High 74-106 [facility] Comment on above: MANAGEMENT OF PATIEN T CARE PER NURSING PROTOCOL Glucose [Mass/Vol] 134 mg/dL High 74-106 [facility] Comment on above: MANAGEMENT OF PATIEN T CARE PER NURSING PROTOCOL Hematocrit Auto (Bld) [Volum e fraction]Ordered By: Leonel Aquino on 05-16-2024 Hematocrit (Bld) [Volume fraction] 36.4 % Low 37-47 [facility] Hemoglobin measurementOrdere d By: Leonel Aquino on 05-16-2024 Hemoglobin (Bld) [Mass/Vol] 11.5 g/dL Low 12.0-15.0 [facility] Immature granulocytes/100 WB C Auto (Bld)Ordered By: Leonel Aquino on 05-16-2024 Immature granulocytes/100 WBC (Bld) 0.200 % 0.0-0.9 [facility] Comment on above: IG% - Immature Granu locytes (promyelocytes, myelocytes and metamyelocytes) > 1% indicates that a LEFT SHIFT is Present. Ketones Test strip Ql (U)Ord ered By: Leonel Aquino on 05-16-2024 Ketones Ql (U) 150 mg/dl Abnormal Negative [facility] Comment on above: CRITICAL VALUE *H Laboratory - Chemistry and C hemistry - challengeOrdered By: Leonel Aquino on 05-16-2024 AST [Catalytic activity/Vol] 20 U/L <32 [facility] Lymphocytes Auto (Unsp spec) [#/Vol]Ordered By: Leonel Aquino on 05-16-2024 Lymphocytes (Bld) [#/Vol] 1.65 10*3/uL 0.83-4.51 [facility] Lymphocytes/100 WBC Auto (Un sp spec)Ordered By: Leonel Aquino on 05-16-2024 Lymphocytes/100 WBC (Bld) 32.6 % 19-41 [facility] MCV (mean corpuscular volume ) determinationOrdered By: Leonel Aquino on 05-16-2024 MCV (RBC) [Entitic vol] 77.1 fL Low 81-[address] [facility] Mean corpuscular hemoglobin (MCH) determinationOrdered By: Leonel Aquino on 05-16-2024 MCH (RBC) [Entitic mass] 24.4 pg Low 27.0-32.0 [facility] Mean corpuscular hemoglobin concentration (MCHC) determinationOrdered By: Leonel Aquino on 05-16-2024 MCHC (RBC) [Mass/Vol] 31.6 g/dL Low 32-36 [facility] Mean platelet volume determi nationOrdered By: Leonel Aquino on 05-16-2024 Platelet mean volume (Bld) [Entitic vol] 9.4 fL 6.2-12.0 [facility] Microscopic analysis of urin e for red blood cells (RBC)Ordered By: Leonel Aquino on 05-16-2024 Microscopic analysis of urine for red blood cells (RBC) 0-5 SEEN /hpf 0-5 [facility] Urine RBC 0-5 SEEN /hpf 0-5 [facility] Monocyte percentageOrdered B y: Leonel Aquino on 05-16-2024 Monocytes/100 WBC (Bld) 8.7 % 0-[address] [facility] Mucus LM Ql (Urine sed)Order ed By: Leonel Aquino on 05-16-2024 Mucus Ql (Urine sed) 0 SEEN /hpf [facility] Neutrophil percentageOrdered By: Leonel Aquino on 05-16-2024 Neutrophils/100 WBC (Bld) 55.7 % 47-70 [facility] Nitrite Test strip Ql (U)Ord ered By: Leonel Aquino on 05-16-2024 Nitrite Ql (U) Negative Negative [facility] Nucleated red blood cell per centageOrdered By: Leonel Aquino on 05-16-2024 Nucleated RBC/100 WBC (Bld) [Ratio] 0 % 0-5 [facility] Platelet countOrdered By: Netta Aquino on 05-16-2024 Platelets (Bld) [#/Vol] 316 10*3/uL 150-450 [facility] Potassium (Unsp spec) [Mass/ Vol]Ordered By: Leonel Aquino on 05-16-2024 Potassium [Moles/Vol] 4.1 mmol/L 3.3-5.1 [facility] Potassium measurement (mass/ volume)Ordered By: Leonel Aquino on 05-16-2024 Potassium (Unsp spec) [Mass/Vol] 4.1 mmol/L 3.3-5.1 [facility] Protein Test strip Ql (U)Ord ered By: Leonel Aquino on 05-16-2024 Protein Ql (U) 30 mg/dl High Negative [facility] RBC Auto (Bld) [#/Vol]Ordere d By: Leonel Aquino on 05-16-2024 RBC (Bld) [#/Vol] 4.72 10*6/uL 4.2-5.4 [facility] Serum creatinine measurement (mass/volume)Ordered By: Leonel Aquino on 05-16-2024 Creatinine [Mass/Vol] 0.77 mg/dL 0.70-1.20 [facility] Serum globulin measurementOr dered By: Leonel Aquino on 05-16-2024 Globulin (S) [Mass/Vol] 3.4 g/dL 2.2-4.[address] [facility] Serum glucose measurement (m ass/volume)Ordered By: Leonel Aquino on 05-16-2024 Glucose [Mass/Vol] 127 mg/dL High 70-99 [facility] Serum or plasma alanine padilla otransferase (ALT) measurementOrdered By: Leonel qAuino on 05-16-2024 ALT [Catalytic activity/Vol] 22 U/L <35 [facility] Serum or plasma albumin neema urement (mass/volume)Ordered By: Leonel Aquino on 05-16-2024 Albumin [Mass/Vol] 4.0 g/dL 3.5-5.0 [facility] Serum or plasma albumin/glob ulin mass ratioOrdered By: Leonelhosea Aquino 05-16-2024 Albumin/Globulin [Mass ratio] 1.2 {ratio} 0.9-2.4 [facility] Serum or plasma alkaline pablo sphatase measurementOrdered By: Leonelhosea Aquino 05-16-2024 ALP [Catalytic activity/Vol] 69 U/L 35-104 [facility] Serum or plasma calcium neema urement (mass/volume)Ordered By: Leonel Aquino on 05-16-2024 Calcium [Mass/Vol] 9.4 mg/dL 7.6-11.0 [facility] Serum or plasma urea nitroge n measurement (mass/volume)Ordered By: Leonel Aquino on 05-16-2024 Urea nitrogen [Mass/Vol] 12 mg/dL 4-19 [facility] Sodium levelOrdered By: Leonel Aquino on 05-16-2024 Sodium [Moles/Vol] 137 mmol/L 133-145 [facility] Squamous epithelial cells de tection in urine sediment by light microscopyOrdered By: Leonelhosea Aquino on 05-16-2024 Epithelial cells.squamous LM Ql (Urine sed) 0-5 SEEN /hpf 5-10 [facility] Total proteinOrdered By: Leonelhosea Aquino on 05-16-2024 Protein [Mass/Vol] 7.5 g/dL 5.9-8.4 [facility] Urinalysis, Completeon 05-16 RBC 0-5 SEEN Normal 0-5 [facility] Comment on above: Order Comment: CRITI JUANITA VALUE CALLED TO [facility] 05/16/24 1553 [place]. RESULTS READ BACK BY SAME. CLEAN CATCH Performed By: #### L 400.0001 #### [facility] [address] [facility] [address] WBC 0-5 SEEN Normal 0-5 [facility] Comment on above: Order Comment: CRITI J[facility]ANITA [facility]UE [facility] 1553 [place]. RESULTS READ BACK BY SAME. CLEAN CATCH Performed By: #### L 400.0001 #### [facility] [address] [place], [address] BACTERIA 1+ /hpf Normal None Seen [facility] Comment on above: Order Comment: CRITI JUANITA VALUE [facility]/16[facility]24 1553 [place]. RESULTS READ BACK BY SAME. CLEAN CATCH Performed By: #### L 400.0001 #### [facility] [address] [place], [place], [id number] EPI,SQUAMOUS 0-5 SEEN Normal 5-10 [facility] Comment on above: Order Comment: CRITI JUANITA VALUE CALLED TO [facility] 05/16/24 1553 [place]. RESULTS READ BACK BY SAME. CLEAN CATCH Performed By: #### L 400.0001 #### [facility] [address] [place], [place], [id number] Mucus Ql (Urine sed) 0 SEEN Normal [facility] Comment on above: Order Comment: CRITI JUANITA VALUE [facility] 05/16/24 1553 [place]. RESULTS READ BACK BY SAME. CLEAN CATCH Performed By: #### L 400.0001 #### [facility] [address] [place], [place], [address] Urine blood detectionOrdered By: Leonel Aquino on 05-16-2024 Urine Occult Blood Negative Negative [facility] Urine clarityOrdered By: Leonel Aquino on 05-16-2024 Clarity (U) Clear Clear [facility] Urine color determinationOrd ered By: Leonel Aquino on 05-16-2024 Color (U) Yellow Yellow [facility] Urine glucose detectionOrder ed By: Leonel Aquino on 05-16-2024 Glucose Ql (U) Normal mg/dl Normal [facility] Urine leukocyte esterase det ection by dipstickOrdered By: Leonel Aquino on 05-16-2024 Leukocyte esterase Test strip Ql (U) Negative Negative [facility] Urine pHOrdered By: Leonel jc on 05-16-2024 pH (U) 6.0 [pH] 5.0 - 8.0 [facility] Urine sediment bacteria coun t by microscopy (number/high power field)Ordered By: Leonel Aquino on 05-16-2024 Bacteria LM.HPF (Urine sed) [#/Area] 1 /[HPF] None Seen [facility] Urine specific gravity measu rementOrdered By: Leonel Aquino on 05-16-2024 Specific gravity (U) [Rel density] 1.020 1.002-1.030 [facility] Urine urobilinogen measureme ntOrdered By: Leonel Aquino on 05-16-2024 Urobilinogen Ql (U) 1 mg/dl High Normal [facility] Urobilinogen Ql (U)Ordered B y: Leonel Aquino on 05-16-2024 Urobilinogen (U) [Mass/Vol] 1 mg/dL High Normal [facility] White blood cell (WBC) count Ordered By: Leonel Clintono on 05-16-2024 WBC (Bld) [#/Vol] 5.1 10*3/uL 4.4-11.0 [facility] White blood cell countOrdere d By: Leonel Aquino on 05-16-2024 Urine WBC 0-5 SEEN /hpf 0-5 [facility] White blood cell count 0-5 SEEN /hpf 0-5 [facility] Emergency Department Summary on 01-15-2024 Emergency Department Summary [facility] Medical Records Department [address] [place] [address] Emergency Department Summary 01/15/24 MR#: [id number] Acct: [id number] Name: MELLY HINKLE Rep #: [id number] : 2000 23 From: Monique Ferro DO PCP: Care Physician,No Primary Status:[facility] ER Location: ED HPI History of [...] reported at this time Tetanus Immunization: Unknown [facility] Medical History Physical exam, pre-employment Neck pain [...] motor deficits and no sensory deficits noted [place] Coma Scale: document GCS findings Spontaneous Obeys [...] 4-0 vicryl) Irrigated (ml): 250 Number of Sutures/[place]: 3 Suture Information: Ethilon (more content not included)... Normal [facility] CT BRAIN W/O CONTRASTon - CT BRAIN W/O CONTRAST [place] [address] Patient: MELLY HINKLE Phone#: : 2000 Age: 23 Gender: F Pt. Type: ER Account: [id number] Location: [facility] Ordering: DR. JOANNE ARAYA Exam Date: 09/02/2023/14:25 Family Phys: Charge Code: [id number] Physician: [place] Order #: [id number] Dose#: [id number] PROCEDURE: CT BRAIN WITHOUT CONTRAST [...] Arreguin MD on 09/02/2023 at 14:44 Normal [facility] MELLY STOVER ([id number]) 2000 F Date Time Provider Department 07/12/[address] [facility] During your visit today, we recorded the following information about you: Kristy Banuelos LPN 07/12/2021 10:30 AM Signed ----- Message from Erica Loyola APRN.BRANCH LEAD sent at 07/12/2021 8:17 AM EDT ----- Please inform patient of negative COVID and Influenza. Continue treatment plan at time of discharge. Follow up with PCP. Return with worsening symptoms. Kristy Banuelos LPN 07/12/2021 10:32 AM Signed Patient notified. Verbalized understanding. Allergies As of Date: 07/12/2021 Noted Allergy Reaction PREDNISONE 10/19/2013 1 - Mental Status Change Date Reviewed: 07/11/2021 Reviewed by: Linsey Soares APRN.PHI - Fully Assessed Reason for Visit: Results [95] Prescriptions as of 07/12/2021 - medroxyPROGESTERone (DEPO-PROVERA) 150 mg/mL Inject 1 mL intramuscularly every 12 weeks. - Omeprazole 20 mg TbEC Take 20 mg by mouth once daily. - sertraline (ZOLOFT) 25 mg tablet Take 25 mg by mouth once daily. from Jaquan Andrea [facility] psych - methylphenidate ER (CONCERTA) 54 mg CR tablet Take 54 mg by mouth once daily. - methylphenidate LA (RITALIN LA) 10 mg 24 hr capsule Take 10 mg by mouth once daily. - busPIRone 5 mg tablet Takes 10 mg in the Am and 10 mg at night - [facility] - cloNIDine 0.1 mg tablet 0.1 mg. Takes 0.1 mg at bedtime - from [facility] psych - ziprasidone (GEODON) 20 mg capsule 20 mg. Takes 40 mg in the morning and 60 mg in the PM - [facility] Problem List As Of Date 07/12/2021 Noted Resolved ADHD (attention deficit hyperactivity disorder)*07/26/2011 ODD (oppositional defiant disorder) [F91.3] 07/26/2011 Right upper quadrant pain [R10.11] 11/02/2013 05/24/2015 Irregular menstrual cycle [N92.6] 05/24/2015 Acne vulgaris [L70.0] 05/24/2015 Suicide attempt (HCC) [T14.91XA] 06/17/2015 Encounter Status:Closed by KRISTY BANUELOS on 07/12/21 [facility] CORWINOVaneesh 07-11-2021 CNOV Office Visit (UCWSTR ) ----- MELLY STOVER ([id number]) 2000 F Date Time Provider Department 07/11/21 11:15 AM LINSEY SOARES [facility] During your visit today, we recorded the following information about you: Temperature Pulse Respiration Blood pressure 99.4 degrees 100/minute 21/minute 126/84 Weight Last Period 153.5 kg 06/30/21 Linsey Soares APRN.BRANCH LEAD 07/11/2021 12:13 PM Signed Subjective HPI Melly [...] 25 mg by mouth once daily. from [employer] [facility] psych methylphenidate ER (CONCERTA) 54 mg CR tablet Take 54 mg by mouth once daily. methylphenidate LA (RITALIN LA) 10 mg 24 hr capsule Take 10 mg by mouth once daily. busPIRone 5 mg tablet Takes 10 mg in the Am and 10 mg at night - From [employer] [facility] psych cloNIDine 0.1 mg tablet 0.1 mg. Takes 0.1 mg at bedtime - from [employer] [facility] psych ziprasidone (GEODON) 20 mg capsule 20 mg. Takes 40 mg in the morning and 60 mg in the PM - from Jaquan [employer] [facility] psych FAMILY HISTORY Problem Relation Age of Onset - other (heart problems) Paternal Grandfather [place] in 70's - Hypertension Maternal Grandfather - [...] - Discusse (more content not included)... Normal [facility] STREP A MOLECULAR (POC)on Procedural Control Valid [facility] Strep A (POCT) Negative Negative [facility] Coronavirus 2019on 1 COVID 19 Result LOSS PREVENTION COORDINATOR Abnormal Negative for COVID19 (SARS CoV2) by PCR. [facility] Comment on above: Result Comment: Posi tive for This test was developed and its performance characteristics determined by [facility] [place]. This test has been authorized by [facility] under an Emergency Use Authorization (EUA). This test has been validated in accordance with the FDA's Guidance Document "Policy for Diagnostics Testing in Laboratories Certified to Perform High Complexity Testing under CLIA prior to Emergency use Authorization for Coronavirus Disease 2019 during the Public Health Emergency" issued on May 13, 2019. COVID19 (SARS This test was developed and its performance characteristics determined by [facility] [place]. This test has been authorized by FDA under an Emergency Use Authorization (EUA). This test has been validated in accordance with the FDA's Guidance Document "Policy for Diagnostics Testing in Laboratories Certified to Perform High Complexity Testing under CLIA prior to Emergency use Authorization for Coronavirus Disease 2019 during the Public Health Emergency" issued on May 13, 2019. CoV2) by This test was developed and its performance characteristics determined by [facility] [place]. This test has been authorized by FDA under an Emergency Use Authorization (EUA). This test has been validated in accordance with the FDA's Guidance Document "Policy for Diagnostics Testing in Laboratories Certified to Perform High Complexity Testing under CLIA prior to Emergency use Authorization for Coronavirus Disease 2019 during the Public Health Emergency" issued on May 13, 2019. PCR.(*) This test was developed and its performance characteristics determined by [facility] [place]. This test has been authorized by FDA under an Emergency Use Authorization (EUA). This test has been validated in accordance with the FDA's Guidance Document "Policy for Diagnostics Testing in Laboratories Certified to Perform High Complexity Testing under CLIA prior to Emergency use Authorization for Coronavirus Disease 2019 during the Public Health Emergency" issued on May 13, 2019. Coronavirus 2019on 1 COVID 19 Source LOSS PREVENTION COORDINATOR Normal [facility] Comment on above: Result Comment: Naso pharyngeal Corrected on 03/15 AT 1307: Previously reported as LOSS PREVENTION COORDINATOR SWAB Swab Corrected on 03/15 AT 1307: Previously reported as LOSS PREVENTION COORDINATOR SWAB FLU A and B PANEL NASOPHARYN GEALon 05-04-2019 FLUAV Ag Ql (Unsp spec) Negative Normal NEGATIVE [facility] Comment on above: Performed By: #### 3 3535-6 #### [facility] [address] [place] [address] Personal Care Worker - [facility] GEOVANY [id number] FLUBV Ag Ql (Unsp spec) Negative Normal NEGATIVE [facility] Comment on above: Performed By: #### 3 3535-6 #### [facility] [address] [place] [address] Personal Care Worker - [facility] GEOVANY [id number] RAPID STREP SCREENon 020 GROUP A STREP Negative [facility] Comment on above: Performed By: #### 1 8481-2 #### [facility] [address] [place] [address] [facility] [id number] GROUP CG STREP Negative [facility] Comment on above: Performed By: #### 1 8481-2 #### [facility] [address] [place] [address] [facility] [id number] HRAPID TESTING PERFORMED USING MOLECULAR TESTING Normal [facility] Comment on above: Performed By: #### 1 8481-2 #### [facility] [address] [place] [address] [facility] [id number] RAPID STREP SCREENon 019 GROUP A STREP Negative [facility] Comment on above: Performed By: #### 1 8481-2 #### [facility] [address] [place] [address] Personal Care Worker - Renea ARMENTA [id number] GROUP CG STREP Negative Normal [facility] Comment on above: Performed By: #### 1 8481-2 #### [facility] [address] [place], [place] [address] Personal Care Worker - Renea Prestonmaria elena ARMENTA [id number] HRAPID TESTING PERFORMED USING MOLECULAR TESTING Normal [facility] Comment on above: Performed By: #### 1 8481-2 #### [facility] [address] [place], [place] [address] Personal Care Worker - Renea Prestonmaria elena ARMENTA [id number] Progress Noteon 01-01-2017 Social Psychologist Authentication Interface Message Text CHILD PSYCHIATRY OUTPATIENT PROGRESS NOTEDATE OF SERVICE: 01/01/2017 AGE: 16 y.o. GRADE: [employer] [facility],attend [employer] ([employer]) ([email or web address]). 12th grade.IEP in [address].I interviewed the patient and her mother (Kalpana Herr)REASON FOR VISIT: Medication check. No changes during last visit.SUBJECTIVE: (reported issues and events since last appointment)Prefers to be call "Crissy"Crissy states my moods have been good. I haven't been blowing up like I used to.I have been less irritable. I am able to talk to people when I am angry."Reports good energy and motivations. Denies anhedonia. Reports sleeping well.Denies SI/HI. Denies Self harmCeCe states "my anxiety is in the middle. Today [place] [address] and my anxiety went up. Anxiety can be at school because of testand presentations. I do feel it is has been better and I can control itbetter." Denies feeling restless. Denies aches or pain.Reports focusing well and staying on task. Reports she can fidgety at times butit's not inMom states "she is doing pretty good. She is your [...] endorses the following protective factors against attempting suicide[christian, family, social support, engagement in work or education, fear ofdying, future goals].The patient does not endorse any thoughts of wanting to physically harming orkilling someone currently and in the past [30 days, lifetime, since last visit].Patient denies any history of physical violence.Peer/Family Relationship: Lives with my parent, 12 old sister, and 9 y/obrother. Crissy "I bicker with my siblings, but otherwise things are good."School Behavior/Grades: Reports doing well academically to start the year.Currently getting A-C's. 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 Reports gettingalong well with co-workers.General Health: "good'MEDICAL REVIEW OF SYMPTOMS:Constitutional: Negative for fever and [...] good. Reports falling asleep andsleeping trough the night." Bedtime: 9:00 pm, up at 6:00 am.Appetite: Normal.Exercise: States not a lot of exercise. I might do some exercises by it's notvery often."OBJECTIVE:Vitals: 01/01/17 0959BP: 115/80Pulse: 86Weight: (!) 127.1 kgHeight: [...] (Z= 2.62) based on CDC 2-20 Years xoaspm-ada-dtg data using vitals from01/01/2017.28 %ile (Z= -0.57) based on CDC 2-20 Years vpmkbdy-inl-qpc data using vitalsfrom 01/01/2017.MENTAL STATUS EXAMINATION:Behavior During Interview: calm and cooperativeAppearance: neat/clean and dressed appropriatelyEye Contact: appropriate and goodMood: I am doing really good."Affect: appropriate and congruent with moodSpeech: normal rate [...] mg) days 2-5.Medication Issues: No ADR'sMedication Changes: NoASSESSMENT/DIAGNOSIS:Shauna mckeon is a 16 y.o. female diagnosed with:Dale I :1. Episodic mood disorder ziprasidone (GEODON) [...] individual and family psychotherapy. Previously with [facility]- with Delma.3. Follow up in 3 months.4. Have the following labs completed: CBC with diff, CMP, Fasting LipidProfile, and TSH d/t retirement medication use.Electronically signed:Diogenes Villalba, PLOW SHAKER Normal [facility] Progress Noteon 09-08-2016 Social Psychologist Authentication Interface Message Text Psychopharmacology Progress NoteCherex Stover is a 16 y.o. female presenting today forChief ComplaintPatient presents with Medication Management.Interim History:She is accompanied by her mother.. Last seen by VERITO Artis 11/07/15Last seen by Joy Watkins May 2016Se with her mother, todayAt this time, Melly [...] Melly. Melly denied any SItodayShe went to Scientologist camp for a week, in [place]. She had a great time, and wassmiling as she told me about this Melly is currently looking for a summer jobBoth mother and Melly see her as doing well currently. Neither wish to changeany medications at this timePeer/Family Relationships:improving , still some arguements but no aggressionwith arguing. The arguments are WNL, per MotherCosteve- Family Life Counseling- weekly, she continues to meet with Delma,whom she has seen for almost one yearSchool Behavior/Grades:[facility] [employer]- Grades are good; A's and 1 B this last grading period. 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 Depressed mood andself-isolation was/were denied Depression scale- "0" since med.. Feelings ofirritability was/were endorsed, but Mother noted that it was "normal for herage"Anxiety-related concerns were denied by: Patient. Anxiety, chronic/excessiveworry and irritability was/were deniedBehavioral concerns were denied by: mother. Argumentativeness was/were reportedor observed. Mother stated that eMlly has a normal teen attitude"Attentional concerns were denied by: Patient.Symptoms of psychosis/thought [...] Z= -0.61) Growth percentiles are based on CDC 2-20 Years data.Body mass index is 48.88 [...] Oppositional defiant disorderTreatment Goal/Objective: Treatment plan reviewed,medication educationprovided,mainor tinoco needs assessed, continue therapyAssessment: improved mood on [...] will consider this optionMed check in 3 [facility]10:54 AM09/08/2016 Normal [facility] Vital Signs Date Time Vital Sign Value Performing Clinician Facility 08-17-2024 13:57-0400 Body height 157.48 cm No Primary Care Physician [facility] 08-17-2024 13:57-0400 Body mass index (BMI) [Ratio] 55.2 kg/m2 No Primary Care Physician [facility] 08-17-2024 13:57-0400 Body temperature 98.6 [degF] No Primary Care Physician [facility] 08-17-2024 13:57-0400 Body weight 136.98 kg No Primary Care Physician [facility] 08-17-2024 13:57-0400 Diastolic blood pressure 100 mm[Hg] No Primary Care Physician [facility] 08-17-2024 13:57-0400 Heart rate 92 /min No Primary Care Physician [facility] 08-17-2024 13:57-0400 Respiratory rate 16 /min No Primary Care Physician [facility] 08-17-2024 13:57-0400 SaO2% (BldA) [Mass fraction] 98 % No Primary Care Physician [facility] 08-17-2024 13:57-0400 Systolic blood pressure 146 mm[Hg] No Primary Care Physician [facility] 07-04-2024 09:31-0400 Body height 157.48 cm No Primary Care Physician [facility] 07-04-2024 09:31-0400 Body mass index (BMI) [Ratio] 55.9 kg/m2 No Primary Care Physician [facility] 07-04-2024 09:31-0400 Body temperature 97.2 [degF] No Primary Care Physician [facility] 07-04-2024 09:31-0400 Body weight 138.66 kg No Primary Care Physician [facility] 07-04-2024 09:31-0400 Diastolic blood pressure 87 mm[Hg] No Primary Care Physician [facility] 07-04-2024 09:31-0400 Heart rate 91 /min No Primary Care Physician [facility] 07-04-2024 09:31-0400 Respiratory rate 19 /min No Primary Care Physician [facility] 07-04-2024 09:31-0400 SaO2% (BldA) [Mass fraction] 99 % No Primary Care Physician [facility] 07-04-2024 09:31-0400 Systolic blood pressure 154 mm[Hg] No Primary Care Physician [facility] 05-16-2024 16:42-0500 Body temperature 98.2 [degF] No Primary Care Physician [facility] 05-16-2024 16:42-0500 Diastolic blood pressure 86 mm[Hg] No Primary Care Physician [facility] 05-16-2024 16:42-0500 Heart rate 85 /min No Primary Care Physician [facility] 05-16-2024 16:42-0500 Respiratory rate 16 /min No Primary Care Physician [facility] 05-16-2024 16:42-0500 SaO2% (BldA) [Mass fraction] 99 % No Primary Care Physician [facility] 05-16-2024 16:42-0500 Systolic blood pressure 144 mm[Hg] No Primary Care Physician [facility] 05-16-2024 13:22-0500 Body mass index (BMI) [Ratio] 53.4 kg/m2 No Primary Care Physician [facility] 05-16-2024 13:22-0500 Body weight 132.5 kg No Primary Care Physician [facility] 01-06-2022 18:36-0400 Respiratory rate 16 /min [facility] Work Phone: 01-06-2022 16:24-0400 Body height 157.48 cm [facility] Work Phone: 01-06-2022 16:24-0400 Body mass index (BMI) [Ratio] 62.1 kg/m2 [facility] Work Phone: 01-06-2022 16:24-0400 Body temperature 97.7 [degF] [facility] Work Phone: 01-06-2022 16:24-0400 Body weight 154.22 kg [facility] Work Phone: 01-06-2022 16:24-0400 Diastolic blood pressure 103 mm[Hg] [facility] Work Phone: 01-06-2022 16:24-0400 Heart rate 98 /min [facility] Work Phone: 01-06-2022 16:24-0400 SaO2% (BldA) [Mass fraction] 98 % [facility] Work Phone: 01-06-2022 16:24-0400 Systolic blood pressure 147 mm[Hg] [facility] Work Phone: 07-11-2021 11:06-0400 Body temperature 99.39 [degF] Linsey Praisler-Wood FRONT DESK ASSOCIATE.BRANCH LEAD Work Phone: [facility] 07-11-2021 11:06-0400 Body weight 153.5 kg Linsey Praisler-Wood FRONT DESK ASSOCIATE.BRANCH LEAD Work Phone: [facility] 07-11-2021 11:06-0400 Diastolic blood pressure 84 mm[Hg] Linsey Praisler-Wood FRONT DESK ASSOCIATE.BRANCH LEAD Work Phone: [facility] 07-11-2021 11:06-0400 Heart rate 100 /min Linsey Praisler-Wood FRONT DESK ASSOCIATE.BRANCH LEAD Work Phone: [facility] 07-11-2021 11:06-0400 Respiratory rate 21 /min Linsey Praisler-Wood FRONT DESK ASSOCIATE.BRANCH LEAD Work Phone: [facility] 07-11-2021 11:06-0400 SaO2% (BldA) [Mass fraction] 97 % Linsey Praisler-Wood FRONT DESK ASSOCIATE.BRANCH LEAD Work Phone: [facility] 07-11-2021 11:06-0400 Systolic blood pressure 126 mm[Hg] Linsey CharlesJudd SPEARS Work Phone: [facility] Encounters Encounter Date Encounter Type Care Provider Facility Start: 01-31-2025 ambulatory Rocío Sidra Facility :[facility] Start: 01-15-2025 ambulatory Rocío Sidra Facility :[facility] Start: 01-12-2025 Encounter for other preprocedural examination [facility] Start: 12-18-2024 End: 12-18-2024 ambulatory Rocío Lee Facility:[facility] Start: 11-21-2024 End: 11-22-2024 Emergency department patient visit Leonel Aquino Facility:[facility] Start: 11-16-2024 End: 11-16-2024 ambulatory Rocío Lee Facility:[facility] Start: 09-28-2024 End: 09-28-2024 ambulatory Rocío Lee Facility:[facility] Start: 09-28-2024 End: 09-28-2024 ambulatory Orcío Lee Facility:[facility] Start: 08-31-2024 End: 08-31-2024 ambulatory Rocío Sidra Facility:[facility] Start: 08-17-2024 End: 08-17-[address] Rocío aVlente MD -[facility] Work Phone: Start: 08-17-2024 End: 08-17-2024 ambulatory No Primary Care Physician [facility] Work Phone: Start: 07-04-2024 End: 07-04-2024 Emergency department patient visit No Primary Care Physician -Emergency Department Work Phone: Start: 05-16-2024 End: 05-16-2024 Emergency department patient visit Dr. Leonel Aquino MD -Emergency Department Work Phone: Start: 01-15-2024 End: 01-15-2024 Emergency department patient visit No Primary Care Physician Facility:[facility] Start: 09-02-2023 End: 09-02-2023 Emergency department patient visit JOANNE DO [facility] Start: 01-06-2022 End: 01-06-2022 Emergency department patient visit [facility]-Emergency Department Start: 07-12-2021 Telephone encounter Erica Guru hamilton APRN.CNP Work Phone: [facility] Comment on above: Results Start: 07-11-2021 End: 07-11-2021 Patient encounter procedure Linsey Soares APRN.CNP Work Phone: [facility] Comment on above: Sore throat (Primary Dx); Viral URI Start: 05-04-2019 End: 05-05-2019 Patient encounter procedure NONE NONE Facility:[facility] Start: 04-29-2019 End: 04-29-2019 Patient encounter procedure NONE NONE Facility:[facility] Start: 02-21-2019 End: 02-21-2019 Patient encounter procedure GISEL George GU Facility:[facility] Start: 01-01-2017 End: 01-01-2017 Ambulatory DIOGENES Rajan [facility] Start: 09-08-2016 End: 09-08-2016 Ambulatory [facility] Procedures Date Procedure Procedure Detail [...] Date Care Activity Detail Author Start: 07-04-2024 [facility] Start: 01-06-2022 [facility] Work Phone: Start: 11-13-2021 Influenza vaccination INFLUENZ A (Season Ended) [facility] Start: 07-23-2021 Urine microalbumin profile DTAP,TDAP,TD (4 - Td or Tdap) [facility] Start: 07-11-2021 End: 07-25-2021 Influenza virus A and B RNA and SARS-CoV-2 (COVID-19) N gene panel - Respiratory specimen by LANG with probe detection COVID WITH FLUA+B, ROUTINE Microbiology Routine Viral URI Expected: 07/11/2021, Expires: 07/25/2021 [facility] Work Phone: Comment on above: Expected: 07/11/2021 , Expires: 07/25/2021 Start: 02-26-2020 PAP TESTING PAP TESTING [facility] Start: 10-26-2017 Adult depression screening assessment DEPRESSION SCREENING [facility] Start: 2017 CHLAMYDIA SCREENING (18-24) CHLAMYDIA SCREENING (18-24) [facility] Start: 2017 GC (GONORRHEA) SCREE LIZETH (18-24) GC (GONORRHEA) SCREENING (18-24) [facility] Start: 2017 HEPATITIS C SCREENING HEPATITIS C SC REENING [facility] Start: 2017 HIV SCREENING HIV SCREENING [facility] Start: 2013 PEDS TO ADULT TRANSI TION ANNUAL ASSESSMENT PEDS TO ADULT TRANSITION ANNUAL ASSESSMENT [facility] Start: 2011 PEDS TO ADULT TRANSI TION INITIAL DISCUSSION PEDS TO ADULT TRANSITION INITIAL DISCUSSION [facility] Start: 2009 MENINGOCOCCAL B: Consider based on risk (1 of 2 - Risk Bexsero 2-dose series) MENINGOCOCCAL B: Consider based on risk (1 of 2 - Risk Bexsero 2-dose series) [facility] Start: 02-26-2004 COVID-19 VACCINE (1) COVID-19 VACCIN E (1) [facility] Influenza virus A an d B and SARS-CoV-2 (COVID-19) Ag panel - Upper respiratory specim [facility] Work Phone: Patient Education [facility] Work Phone: Patient referral [facility] Work Phone: SARS-CoV-2 & FLU Ant igen (Rapid) SARS-CoV-2 & FLU Antigen (Rapid) [facility] Work Phone: Immunizations Immunization Date Immunization Notes Care Provider Fa cilikandy 01-15-2024 tetanus toxoid, redu dino diphtheria toxoid, and acellular pertussis vaccine, adsorbed No Primary Care Physician [facility] 10-26-2016 hepatitis B vaccine, pediatric or pediatric/adolescent dosage Linsey Soares FRONT DESK ASSOCIATE.BRANCH LEAD Work Phone: [facility] 05-24-2015 meningococcal polysaccharide (groups A, C, Y and W-135) diphtheria toxoid conjugate vaccine (MCV4P) Linsey Soares APRN.BRANCH LEAD Work Phone: [facility] 10-25-2012 human papilloma viru s vaccine, quadrivalent Linsey Soares FRONT DESK ASSOCIATE.BRANCH LEAD Work Phone: [facility] 10-02-2011 hepatitis B vaccine, pediatric or pediatric/adolescent dosage Linsey Soares FRONT DESK ASSOCIATE.BRANCH LEAD Work Phone: [facility] 10-02-2011 human papilloma viru s vaccine, quadrivalent Linsey Soares FRONT DESK ASSOCIATE.BRANCH LEAD Work Phone: [facility] 10-02-2011 poliovirus vaccine, inactivated Linsey Soares FRONT DESK ASSOCIATE.BRANCH LEAD Work Phone: [facility] 10-02-2011 varicella virus vaccine Carmen y Fany RAMIREZN.BRANCH LEAD Work Phone: [facility] 07-24-2011 human papilloma viru s vaccine, quadrivalent Linsey Soares FRONT DESK ASSOCIATE.BRANCH LEAD Work Phone: [facility] Work Phone: 07-24-2011 meningococcal polysaccharide (groups A, C, Y and W-135) diphtheria toxoid conjugate vaccine (MCV4P) No Primary Care Physician [facility] 07-24-2011 Meningococcal, MCV4, unspecified conjugate formulation(groups A, C, Y and W-135) Linsey Soares FRONT DESK ASSOCIATE.BRANCH LEAD Work Phone: [facility] Work Phone: 07-24-2011 tetanus toxoid, redu dino diphtheria toxoid, and acellular pertussis vaccine, adsorbed Linsey Soares FRONT DESK ASSOCIATE.BRANCH LEAD Work Phone: [facility] Work Phone: 12-27-2008 novel Influenza-H1N1 -09, live virus for nasal administration No Primary Care Physician [facility] 01-20-2007 influenza, injectabl e, quadrivalent, preservative free No Primary Care Physician [facility] 01-20-2007 influenza, seasonal, injectable Linsey Soares FRONT DESK ASSOCIATE.BRANCH LEAD Work Phone: [facility] 12-20-2003 diphtheria, tetanus toxoids and acellular pertussis vaccine No Primary Care Physician [facility] 12-20-2003 diphtheria, tetanus toxoids and pertussis vaccine Linsey Soares FRONT DESK ASSOCIATE.BRANCH LEAD Work Phone: [facility] 12-20-2003 measles, mumps and rubella virus vaccine Linsey Soares FRONT DESK ASSOCIATE.BRANCH LEAD Work Phone: [facility] 12-20-2003 poliovirus vaccine, inactivated Linsey Soares FRONT DESK ASSOCIATE.BRANCH LEAD Work Phone: [facility] 07-08-2000 diphtheria, tetanus toxoids and acellular pertussis vaccine No Primary Care Physician [facility] 07-08-2000 diphtheria, tetanus toxoids and pertussis vaccine Linsey Soares FRONT DESK ASSOCIATE.BRANCH LEAD Work Phone: [facility] 07-08-2000 haemophilus influenz ae type b conjugate and Hepatitis B vaccine No Primary Care Physician [facility] 07-08-2000 haemophilus influenz ae type b vaccine, HbOC conjugate Linsey Soares FRONT DESK ASSOCIATE.BRANCH LEAD Work Phone: [facility] 07-08-2000 hepatitis B vaccine, pediatric or pediatric/adolescent dosage Linsey Soares FRONT DESK ASSOCIATE.BRANCH LEAD Work Phone: [facility] 07-08-2000 pneumococcal conjuga te vaccine, 7 valent Linsey Soares FRONT DESK ASSOCIATE.BRANCH LEAD Work Phone: [facility] 07-08-2000 poliovirus vaccine, inactivated Linsey Soares FRONT DESK ASSOCIATE.BRANCH LEAD Work Phone: [facility] 02-27-2000 measles, mumps and rubella virus vaccine Linsey CharlesJudd FRONT DESK ASSOCIATE.BRANCH LEAD Work Phone: [facility] 02-27-2000 pneumococcal conjuga te vaccine, 7 valent Linsey Fany FRONT DESK ASSOCIATE.BRANCH LEAD Work Phone: [facility] 02-27-2000 varicella virus vaccine Carmen lucia MarialuisareinaHorace FRONT DESK ASSOCIATE.BRANCH LEAD Work Phone: [facility] Payers Date Payer Category Payer Unknown [id number] 2024 Self-pay [id number] 2021 Unknown ZACHERY PRATIMA ACCE PPO [id number] 2021-Present [phone] [address] [place] [address] PPO [id number] 2013 Unknown [facility] [id number] 1999 Unknown [id number] 1999 Unknown [id number] 1999 Unknown [id number] 1959 Unknown [id number] Medicaid [id number] Unknown [id number] Unknown [id number] Unknown [id number] Unknown [id number] Unknown [id number] Unknown [id number] Unknown [id number] Unknown [id number] Unknown [id number] Unknown [id number] Unknown [id number] Unknown [id number] Unknown [id number] Social History Date Type Detail Facility Start: 08-10-2019 [facility] Work Phone: Start: 08-10-2019 Tobacco use and exposure Smoke less tobacco non-user [facility] Work Phone: Start: 07-11-2021 Alcohol intake Current non-dr lisw of alcohol (finding) [facility] Start: 07-24-2011 Tobacco Comment mom and dad sm okes outside and inside [facility] Start: 1999 Sex Assigned At Not on file [facility] Start: 07-01-2021 End: 07-11-2021 Exposure to SARS-CoV-2 (event) Not sure [facility] Work Phone: Start: 01-06-2022 [facility] if ever smoked [facility] Work Phone: Start: 03-10-2020 None [facility] Start: 03-10-2020 With Family [facility] Start: 05-25-2019 Vapor [facility] Start: 1999 Sex Assigned At Female [facility] Start: 07-04-2024 [facility] tobacco smoker [facility] Start: 07-04-2024 Sex Female (finding) [facility] Start: 08-17-2024 [facility] (finding) [facility] Gender Identity Identifies as fe male gender (finding) [facility] Sexual Orientation Bisexual (finding) [facility] Mental Status Date Assessment Result Facility 07-04-2024 Cognitive function Level Of Cons ciousness Awake;Alert;Appropriate [facility] Work Phone: 01-06-2022 Cognitive function Level Of Cons ciousness Awake;Alert;Appropriate;Follow s Commands [facility] Work Phone: Clinical Notes 11-02-2013 to 07-12-2021 Telephone Encounter - Kristy Banuelos LPN - 07/12/2021 10:31 AM EDTTelephone Encounter - Kristy Banuelos LPN - 07/12/2021 10:30 AM EDTPatient Instructions Note Date & Type Note Facility 07-12-2021 Miscellaneous Notes Patient notified. Verbalized understanding. ----- Message from Erica Loyola APRN.BRANCH LEAD sent at 07/12/2021 8:17 AM EDT ----- Please inform patient of negative COVID and Influenza. Continue treatment plan at time of discharge. Follow up with PCP. Return with worsening symptoms. documented in this encounter [facility] 07-11-2021 Influenza virus A and B RNA and SARS-CoV-2 (COVID-19) N gene panel LANG+probe (Resp) COVID 19 RESULT: SARS-CoV-2 (Agent of COVID-19) Not Detected by RT-PCR or equivalent method. mckinley [id number]_[employer] (BENJAMÍN)_EUA This test was developed and its performance characteristics determined by [facility] [place]. This test has been authorized by FDA under an Emergency Use Authorization (EUA). This test has been validated in accordance with the FDA's Guidance Document "Policy for Diagnostics Testing in Laboratories Certified to Perform High Complexity Testing under CLIA prior to Emergency use Authorization for Coronavirus Disease 2019 during the Public Health Emergency" issued on May 13, 2019. Test performed by [facility], [facility] [place], [address] [place] [address]. INFLUENZA A PCR: Negative for Influenza A by RT-PCR INFLUENZA B PCR: Negative for Influenza B by RT-PCR [facility] Comment on above: Performed By: #### [id number] #### [facility] CLIA [id number] [address] [place] [address] [facility] 07-11-2021 Note HNO ID: [id number] Author: Linsey Soares APRN.BRANCH LEAD Service: ? Author Type: Nurse Practitioner Type: [...] 25 mg by mouth once daily. from [employer] methylphenidate ER (CONCERTA) 54 mg CR tablet Take 54 mg by mouth once daily. methylphenidate LA (RITALIN LA) 10 mg 24 hr capsule Take 10 mg by mouth once daily. busPIRone 5 mg tablet Takes 10 mg in the Am and 10 mg at night - From [employer] [facility] [employer] cloNIDine 0.1 mg tablet 0.1 mg. Takes 0.1 mg at bedtime - from [employer] ziprasidone (GEODON) 20 mg capsule 20 mg. Takes 40 mg in the morning and 60 mg in the PM - from [employer] [facility] [employer] FAMILY HISTORY Problem Relation Age of Onset - other (heart problems) Paternal Grandfather [place] in 70's - Hypertension Maternal Grandfather - [...] Discussed expected course of illness Linsey Soares APRN.CNP [facility] 07-11-2021 Instructions Linsey Soares APRN.[facility] - 07/11/2021 11:28 AM EDT ASSESSMENT/PLAN: 1. Sore [...] Discussed expected course of illness Linsey Soares APRN.BRANCH LEAD Treatment for Viral Upper Respiratory Tract Infections [...] help open respiratory and sinus passages 2. [facility] [place] may offer relief of nasal and head [...] rather than better documented in this encounter [facility] 07-11-2021 History of Presen t illness Narrative [...] 25 mg by mouth once daily. from [employer] methylphenidate ER (CONCERTA) 54 mg CR tablet Take 54 mg by mouth once daily. methylphenidate LA (RITALIN LA) 10 mg 24 hr capsule Take 10 mg by mouth once daily. busPIRone 5 mg tablet Takes 10 mg in the Am and 10 mg at night - From [employer] [facility] cloNIDine 0.1 mg tablet 0.1 mg. Takes 0.1 mg at bedtime - from [employer] ziprasidone (GEODON) 20 mg capsule 20 mg. Takes 40 mg in the morning and 60 mg in the PM - from [employer] [facility] FAMILY HISTORY Problem Relation Age of Onset other (heart problems) Paternal Grandfather [place] in 70's Hypertension Maternal Grandfather Colon Cancer [...] expected course of illness Linsey Soares APRN.PHI documented in this encounter [facility] 11-02-2013 History of Past i llness Narrative Problem Noted Date Resolved Date Right upper quadrant pain 11/02/20132015 documented as of this encounter (statuses as of 07/11/2021) [facility] History of Past illness Narrative* Problem Noted Date Resolved Date Right upper quadrant pain 11/02/20132015 documented as of this encounter (statuses as of 07/12/2021) [facility] Sore throat- Primary Acute pharyngitis Viral URI Acute upper respiratory infections of unspecified site [facility] noteNo assessment information availableWSt. [facility] Work Phone: Evaluation note* Diagnosis Onset Date Resolution Status Admit Date Establishing care with new doctor, encounter for noneactive August 17, 2024 1:41pm Screening for cervical cancer noneac tive August 17, 2024 1:41pm Essential hypertension noneactive Ju 2024 1:41pm [facility] Work Phone: Hospital Discharge instructions Additional Instructions Please return if you develop worsening shortness of breath, weakness, chest pain or if you lose consciousness.[facility] Work Phone: Reason for referral (narrative)No reason for referral information availableWSt. Mary's Medical Center Work Phone: Summary Purpose Family [...] Will No January 06 4:56pm Power of Manual Winder No January 06, 2022 4:56pm Advance Directive Response Recorded Date/ Time Living Will No May 16, 2024 4:20pm Do you have a Healthcare Power of Manual Winder? No May 16, 2024 4:20pm Do you have a Healthcare Power of Manual Winder? No July 04, 2024 10:08am Advance Directives [...] 1pm HEADACHE July 04, 2024 9:3 1am LOSS PREVENTION COORDINATOR. EST CARE - PPW SENT August 17, 2024 1 :41pm Reason for Visit Admit Date Establishing care with new doctor, margarette townsend for August 17, 2024 1:41pm Screening for cervical cancer August 17, 2024 1:41pm Essential hypertension August 17, 2024 1: 41pm Additional Source Comments INFORMATION SOURCE (unrecogn ized section and content) DATE CREATED AUTHOR 09/07/2017 [facility] DATE CREATED AUTHOR AUTHOR'S ORGANIZ ATION 05/05/2019 [facility] DATE CREATED AUTHOR AUTHOR'S ORGANIZ ATION 03/16/2020 [facility] DATE CREATED AUTHOR AUTHOR'S ORGANIZ ATION 07/14/2021 [facility] DATE CREATED AUTHOR AUTHOR'S ORGANIZ ATION 09/04/2023 [facility] DATE CREATED AUTHOR AUTHOR'S ORGANIZ ATION 01/12/2025 [facility] Source Comments (unrecognize d section and content) In the event this informatio n is protected by the Federal Confidentiality of Alcohol and Drug Abuse Patient Records regulations: The Federal rules restrict any use of the information to criminally investigate or prosecute any alcohol or drug abuse patient[facility] the event this information is protected by the Federal Confidentiality of Alcohol and Drug Abuse Patient Records regulations: The Federal rules restrict any use of the information to criminally investigate or prosecute any alcohol or drug abuse patient.[facility] Reason for Visit (unrecogniz ed section and [...] BE BASED ON THE PRIMARY CLINICAL RECORDS. [employer] [facility]. provides no warranty or guarantee of the accuracy or completeness of information in this document.
--- NOTE | 2025-01-15 08:45 | EGD_PTH ---
PATIENT: MELLY HINKLE LOC: EN U#:[id number] AGE/SX: 24/F ROOM: RE01/15/[address]: Dr. Nallely Gutiérrez MD : 2000 BED: DIS: 01/15/2025 SPEC #: [id number] RECD: 01/15/25 11:20 STATUS: JOSELUIS REQ #: [id number] CHANDNI: 01/15/25 08:[address]: Nallely Gutiérrez DEPT: SURGICAL PATHOLOGY RECD BY: Khari Osorio ENTERED: 01/15/25 13:21 SP TYPE: EGD BIOPSY KISHOR DR: Dr. Rocío Valente MD Tissues: A - Gastric mucous membrane B - Esophagus, NOS Procedures: Immunohistochemical Stains Surgery Specimen Level IV HEADER OPERATION: EGD, biopsy PRE-OP DIAGNOSIS: Gastroesophageal reflux disease TISSUE SUBMITTED: A- Antrum biopsy, B- GE junction biopsy MICROSCOPIC DIAGNOSIS A. Antrum, biopsy: - features of reactive gastropathy. - IHC negative for H. pylori organisms. B. GE junction, biopsy: - squamous mucosa with reactive changes, up to 10 eosinophils per high power field. - Columnar mucosa negative for goblet cell metaplasia. MICROSCOPIC DESCRIPTION Slides are reviewed. All matched controls reacted appropriately. These tests were developed and their performance characteristics determined by [facility]. They may not have been cleared or approved by the U.S. Food and Drug Administration. The FDA has determined that such clearance or approval is not necessary. The above immunohistochemical markers are viewed by the Pathologist. GROSS DESCRIPTION A. Received in fixative is one container labeled with the patient's name and designated "Antrum biopsy." The specimen consists of one irregular fragment of purvis tissue that measures 0.4 cm. The specimen is totally submitted in one cassette. B. Received in fixative is one container labeled with the patient's name and designated "GE junction biopsy." The specimen consists of one irregular fragment of purvis tissue that measures 0.7 cm. The specimen is totally submitted in one cassette. [place] 01/15/2025 CPT:57620c8,42865
--- NOTE | 2025-01-15 09:31 | OP.EGD_ITS ---
Patient Name: Kimberly Schuler Procedure Date: 01/15/2025 9:12 AM Date of : 2000 Age: 24 Procedure: Upper GI endoscopy Indications: Heartburn Providers: Nallely Gutiérrez MD Medicines: Monitored Anesthesia Care Patient Profile: This is a 24 year old female. Complications: No immediate complications. Procedure: Pre-Anesthesia Assessment: - Prior to the procedure, a History and Physical was performed, and patient medications and allergies were reviewed. The patient's tolerance of previous anesthesia was also reviewed. The risks and benefits of the procedure and the sedation options and risks were discussed with the patient. All questions were answered, and informed consent was obtained. Prior Anticoagulants: The patient has taken no anticoagulant or antiplatelet agents. ASA Grade Assessment: Per anesthesia. After reviewing the risks and benefits, the patient was deemed in satisfactory condition to undergo the procedure. After obtaining informed consent, the endoscope was passed under direct vision. Throughout the procedure, the patient's blood pressure, pulse, and oxygen saturations were monitored continuously. The Endoscope was introduced through the mouth, and advanced to the second part of duodenum. The upper GI endoscopy was accomplished without difficulty. The patient tolerated the procedure well. Scope In: 9:18:51 AM Scope Out: 9:24:49 AM Total Procedure Duration Time 0 hours 5 minutes 58 seconds Findings: The Z-line was irregular and was found 37 cm from the incisors. Biopsies were taken with a cold forceps for histology. Striped moderately erythematous mucosa without bleeding was found in the gastric antrum. Biopsies were taken with a cold forceps for histology. Biopsies were taken with a cold forceps for Helicobacter pylori cultures. The cardia and gastric fundus were normal on retroflexion. The examined duodenum was normal. Impression: - Z-line irregular, 37 cm from the incisors. Biopsied. - Erythematous mucosa in the antrum. Biopsied. - Normal examined duodenum. Recommendation: - Await pathology results. - Discharge patient to home. - Resume previous diet. - Use sucralfate tablets 1 gram PO QID for 2 weeks. - Continue present medications. Procedure Code(s): --- Professional --- 13608, Esophagogastroduodenoscopy, flexible, transoral; with biopsy, single or multiple Diagnosis Code(s): --- Professional --- K22.89, Other specified disease of esophagus K31.89, Other diseases of stomach and duodenum R12, Heartburn CPT copyright 2021 [employer]. All rights reserved. The codes documented in this report are preliminary and upon fitter/welder review may be revised to meet current compliance requirements. MD Nallely Haywood MD 01/15/2025 9:30:39 AM This report has been signed electronically. Number of Addenda: 0 Note Initiated On: 01/15/2025 9:12 AM
--- NOTE | 2025-01-15 09:31 | OP.PROVAT_ITS ---
01/15/2025 Rocío Valente Md Re : Upper GI endoscopy procedure for Kimberly Schuler Dear Sidra This procedure was performed on Wednesday, January 15, 2025. My impressions and recommendations are as follows: Impressions : - Z-line irregular, 37 cm from the incisors. Biopsied. - Erythematous mucosa in the antrum. Biopsied. - Normal examined duodenum. Recommendations : - Await pathology results. - Discharge patient to home. - Resume previous diet. - Use sucralfate tablets 1 gram PO QID for 2 weeks. - Continue present medications. My findings are described in the full procedure note, which is enclosed. If I can be of further assistance, please feel free to contact me at Doctor phone number(s): , Work: . Sincerely, MD Nallely Haywood MD 01/15/2025 9:30:39 AM This report has been signed electronically.
--- NOTE | 2025-01-15 09:35 | PCM.POST.ANE ---
Anesthesia: Postop Eval I Current Vital Signs Temperature: 97.5 F Pulse Rate: 72 Blood Pressure: 98/58 Respiratory Rate: 16 Pulse Ox: 93 Oxygen Delivery Method: Room Air Assessment Airway patent: Yes Spontaneous unlabored respirations: Yes Mental status: Asleep nausea: No Vomiting: No Anesthesia Complication: No Fluid Hydration Crystalloid volume administer (ml): 400 Total IV fluid infused: 400 Progress Note Anesthesia document: Postop Eval 1 completed: Yes
--- NOTE | 2025-01-15 09:49 | PCM.POSTANE2 ---
Anesthesia Postop Eval I Sum Postop Eval Completion status Anesthesia document: Postop Eval 1 completed: Yes Anesthesia Postop Eval I Summary Anesthesia Postop Eval I Summary: Anesthesia Postop Eval I: Assessment Summary Airway patent Yes 01/15/25 09:36 [email or web address] Spontaneous unlabored Yes 01/15/25 09:36 [email or web address] respirations Mental status Asleep 01/15/25 09:36 [email or web address] nausea No 01/15/25 09:36 [email or web address] Vomiting No 01/15/25 09:36 [email or web address] Anesthesia Postop Eval I: Fluid Summary Crystalloid volume administer 400 01/15/25 09:36 [email or web address] (ml) Colloids volume administered ( ml) Blood Product volume administered (ml) Total IV fluid infused 400 01/15/25 09:36 [email or web address] Anesthesia Postop Eval I: Summary Notes Anesthesia Complication No 01/15/25 09:36 [email or web address] Anesthesia Complication Comment: Post-operative progress note Anesthesia: Postop Eval II Evaluation Mental status: Awake Pain Level: 0 nausea: No Vomiting: No
== END 2025-01-15 10:26 | disposition home or self-care (01) ==
LOC: EN 07:51 → AC 07:52
PROVIDERS: Anesthesiology; PCP Internal Medicine; Referring Provider Surgery; Visit Provider Surgery
DX: K21.9 Gastro-esophageal reflux disease without esophagitis (principal); K31.89 Other diseases of stomach and duodenum; Z79.899 Other long term (current) drug therapy; K22.89 Other specified disease of esophagus; Z90.49 Acquired absence of other specified parts of digestive tract; Z80.0 Family history of malignant neoplasm of digestive organs; F17.220 Nicotine dependence, chewing tobacco, uncomplicated
CPT/HCPCS: 43239; 81025; 88305; 88342; J2405